=== PATIENT | male | born 1960 | race Caucasian/White ===

== ENCOUNTER → 2016-07-24 | Outpatient (CLI) | payer OTHER ==
[2016-07-24 12:58] LABS: Urine Bilirubin Negative (Negative); Urine Blood Negative /uL (Negative); Urine Color Yellow (Yellow); Urine Glucose Normal (Normal); Urine Ketone Negative (Negative); Urine Nitrite Negative (Negative); Urine Urobilinogen Normal (Negative); Urine pH 5.5 (5.0-8.0)
[2016-07-24 13:20] LABS: Basophils # (auto) 0 uL; Basophils % (auto) 0.3 % (0.0-2.0); DEFINITIVE VIEW TRANSMISSION; Eosinophils # (auto) 0.1 uL; Eosinophils % (auto) 0.8 % (0.0-7.0); Hemoglobin 18.1 g/dL (13.5-17.5); Lymphocytes # (auto) 2.1 uL; Lymphocytes % (auto) 23.2 % (10.0-50.0); Mean Corpuscular Hemoglobin 29.9 pg (28.0-32.0); Mean Corpuscular Hgb Conc. 31.8 g/dL (32.0-36.0); Mean Corpuscular Volume 93.9 fL (80.0-100.0); Mean Platelet Volume 9.8 fL (7.4-10.4); Monocytes # (auto) 0.5 uL; Monocytes % (auto) 5.4 % (0.0-12.0); Neutrophils # (auto) 6.4 uL; Neutrophils % (auto) 70.3 % (37.0-80.0); Platelet Count (auto) 255 10^3/uL (140-450); Red Cell Distribution Width 13.9 % (11.6-16.0); White Blood Cell 9.1 10^3/uL (4.4-10.8)
[2016-07-24 14:00] LABS: Hematocrit 56.9 % (41.0-53.0)
[2016-07-24 14:15] LABS: Potassium 4.4 mmol/L (3.5-5.1)
[2016-07-24 14:45] LABS: BUN/Creatinine Ratio 16.4; Calcium 9.7 mg/dL (8.5-10.1)
[2016-07-24 14:48] LABS: Bilirubin, Total 0.5 mg/dL (0.2-1.0); Total Protein 7.6 g/dL (6.4-8.2)
[2016-07-24 17:00] LABS: Bilirubin, Direct 0.1 mg/dL (0-0.2)
== END | disposition home or self-care (01) ==
LOC: LAB 08:30
PROVIDERS: ATTEND Internal Medicine Cardiovascular Disease
DX: I10 Essential (primary) hypertension (principal); E78.00 Pure hypercholesterolemia, unspecified; K74.1 Hepatic sclerosis; R97.20 Elevated prostate specific antigen [PSA]; R53.81 Other malaise; E03.9 Hypothyroidism, unspecified; D64.9 Anemia, unspecified; E55.9 Vitamin D deficiency, unspecified; N39.0 Urinary tract infection, site not specified; E11.9 Type 2 diabetes mellitus without complications
CPT/HCPCS: 36415; 80048; 80061; 80076; 81003; 82306; 83036; 84153; 84403; 84443; 85025

== ENCOUNTER → 2016-10-17 | Outpatient (CLI) | payer OTHER ==
[2016-10-17 12:36] LABS: Basophils # (auto) 0 uL; Basophils % (auto) 0.5 % (0.0-2.0); Eosinophils # (auto) 0.1 uL; Eosinophils % (auto) 1.2 % (0.0-7.0); Hematocrit 51.8 % (41.0-53.0); Hemoglobin 17.5 g/dL (13.5-17.5); Lymphocytes # (auto) 1.7 uL; Lymphocytes % (auto) 18.5 % (10.0-50.0); Mean Corpuscular Hgb Conc. 33.7 g/dL (32.0-36.0); Mean Corpuscular Volume 91.9 fL (80.0-100.0); Mean Platelet Volume 9.4 fL (7.4-10.4); Monocytes # (auto) 0.4 uL; Monocytes % (auto) 4.9 % (0.0-12.0); Neutrophils # (auto) 6.9 uL; Neutrophils % (auto) 74.9 % (37.0-80.0); Platelet Count (auto) 287 10^3/uL (140-450); Red Cell Distribution Width 13.3 % (11.6-16.0); White Blood Cell 9.2 10^3/uL (4.4-10.8)
[2016-10-17 12:40] LABS: Urine Bilirubin Negative (Negative); Urine Blood Negative /uL (Negative); Urine Color Yellow (Yellow); Urine Glucose Normal (Normal); Urine Ketone Negative (Negative); Urine Nitrite Negative (Negative); Urine Urobilinogen Normal (Negative); Urine pH 6.5 (5.0-8.0)
[2016-10-17 13:32] LABS: Albumin 3.9 g/dL (3.4-5.0); BUN/Creatinine Ratio 16.5; Bilirubin, Total 0.5 mg/dL (0.2-1.0); Calcium 9.4 mg/dL (8.5-10.1); Potassium 4.1 mmol/L (3.5-5.1); Total Protein 7.5 g/dL (6.4-8.2)
== END | disposition home or self-care (01) ==
LOC: LAB 08:26
PROVIDERS: ATTEND Internal Medicine Cardiovascular Disease
DX: I10 Essential (primary) hypertension (principal); E78.00 Pure hypercholesterolemia, unspecified; E11.9 Type 2 diabetes mellitus without complications; E03.9 Hypothyroidism, unspecified; D64.9 Anemia, unspecified; E55.9 Vitamin D deficiency, unspecified; N39.0 Urinary tract infection, site not specified
CPT/HCPCS: 36415; 80053; 80061; 81003; 82306; 83036; 84443; 85025

== ENCOUNTER → 2017-05-12 | Outpatient (CLI) | payer OTHER | END | disposition home or self-care (01) | LOC: Rad HDHVI 11:21 | PROVIDERS: ATTEND Internal Medicine Cardiovascular Disease | DX: J40 Bronchitis, not specified as acute or chronic (principal) | CPT/HCPCS: 71020 ==

== ENCOUNTER → 2018-01-16 | Outpatient (CLI) | payer OTHER | END | disposition home or self-care (01) | LOC: Rad HDHVI 11:58 | PROVIDERS: ATTEND Internal Medicine | DX: J98.11 Atelectasis (principal); I10 Essential (primary) hypertension; E11.9 Type 2 diabetes mellitus without complications; E03.9 Hypothyroidism, unspecified; E78.00 Pure hypercholesterolemia, unspecified | CPT/HCPCS: 71046 ==

== ENCOUNTER → 2018-09-04 | Outpatient (CLI) | payer OTHER ==
[2018-09-04 11:56] LABS: Eosinophils # (auto) 0.1 uL; Lymphocytes # (auto) 2.1 uL; Lymphocytes % (auto) 21.7 % (10.0-50.0); Monocytes # (auto) 0.6 uL; Monocytes % (auto) 5.6 % (0.0-12.0); White Blood Cell 9.9 10^3/uL (4.4-10.8)
[2018-09-04 12:02] LABS: Basophils # (auto) 0.1 uL; Basophils % (auto) 0.7 % (0.0-2.0); Eosinophils % (auto) 0.9 % (0.0-7.0); Hematocrit 54.1 % (41.0-53.0); Hemoglobin 18.4 g/dL (13.5-17.5); Mean Corpuscular Hemoglobin 30.8 pg (28.0-32.0); Mean Corpuscular Hgb Conc. 34.1 g/dL (32.0-36.0); Mean Corpuscular Volume 90.5 fL (80.0-100.0); Neutrophils % (auto) 71.1 % (37.0-80.0); Nucleated Red Blood Cells % 0.2 %; Platelet Count (auto) 286 10^3/uL (140-450); Red Blood Cells 5.98 10^6/uL (4.5-5.90)
== END | disposition home or self-care (01) ==
LOC: LAB 09:49
PROVIDERS: ATTEND Internal Medicine Cardiovascular Disease
DX: E29.1 Testicular hypofunction (principal); D64.9 Anemia, unspecified
CPT/HCPCS: 36415; 84403; 85025

== ENCOUNTER → 2018-10-02 | Outpatient (CLI) | payer OTHER ==
[2018-10-02 11:59] LABS: Basophils # (auto) 0 uL; Basophils % (auto) 0.6 % (0.0-2.0); Eosinophils # (auto) 0.1 uL; Eosinophils % (auto) 0.8 % (0.0-7.0); Hematocrit 52.4 % (41.0-53.0); Hemoglobin 17.6 g/dL (13.5-17.5); Lymphocytes # (auto) 1.7 uL; Lymphocytes % (auto) 24.3 % (10.0-50.0); Mean Corpuscular Hemoglobin 30.7 pg (28.0-32.0); Mean Corpuscular Hgb Conc. 33.6 g/dL (32.0-36.0); Mean Corpuscular Volume 91.5 fL (80.0-100.0); Monocytes # (auto) 0.7 uL; Monocytes % (auto) 10.4 % (0.0-12.0); Neutrophils # (auto) 4.5 uL; Neutrophils % (auto) 63.9 % (37.0-80.0); Nucleated Red Blood Cells % 0.3 %; Platelet Count (auto) 228 10^3/uL (140-450); Red Blood Cells 5.72 10^6/uL (4.5-5.90); Red Cell Distribution Width 14.7 % (11.8-14.3)
== END | disposition home or self-care (01) ==
LOC: LAB 10:07
PROVIDERS: ATTEND Internal Medicine Cardiovascular Disease
DX: E29.1 Testicular hypofunction (principal); D64.9 Anemia, unspecified
CPT/HCPCS: 36415; 84403; 85025

== ENCOUNTER → 2019-12-06 | Outpatient (CLI) | payer OTHER ==
[2019-12-06 12:16] LABS: Basophils # (auto) 0.1 10 ^3/uL (0-0.2); Basophils % (auto) 0.6 % (0.0-2.0); Eosinophils # (auto) 0.1 10 ^3/uL (0-0.8); Eosinophils % (auto) 1.1 % (0.0-7.0); Lymphocytes # (auto) 1.9 10 ^3/uL (0.4-5.4); Red Blood Cells 5.78 10^6/uL (4.5-5.90)
[2019-12-06 12:19] LABS: Hematocrit 54.4 % (41.0-53.0); Hemoglobin 18.8 g/dL (13.5-17.5); Lymphocytes % (auto) 20.5 % (10.0-50.0); Mean Corpuscular Hemoglobin 32.6 pg (28.0-32.0); Mean Corpuscular Hgb Conc. 34.6 g/dL (32.0-36.0); Mean Corpuscular Volume 94.1 fL (80.0-100.0); Monocytes # (auto) 0.6 10 ^3/uL (0-1.3); Monocytes % (auto) 6.6 % (0.0-12.0); Neutrophils # (auto) 6.7 10 ^3/uL (1.6-8.6); Neutrophils % (auto) 71.2 % (37.0-80.0); Platelet Count (auto) 276 10^3/uL (140-450); Red Cell Distribution Width 13.1 % (11.8-14.3); White Blood Cell 9.4 10^3/uL (4.4-10.8)
[2019-12-06 12:20] LABS: Urine Blood Negative /uL (Negative); Urine Specific Gravity 1.028 (1.001-1.035)
[2019-12-06 12:39] LABS: Free T4 (Free Thyroxine) 0.91 ng/dL (0.89-1.76); Potassium 4.3 mmol/L (3.5-5.1); Prostate Specific Antigen 1.38 ng/mL (0.0-4.0)
[2019-12-06 13:02] LABS: Albumin 3.9 g/dL (3.4-5.0); BUN/Creatinine Ratio 12.3; Bilirubin, Total 0.4 mg/dL (0.2-1.0); Calcium 9.4 mg/dL (8.5-10.1); Total Protein 7.8 g/dL (6.4-8.2)
== END | disposition home or self-care (01) ==
LOC: LAB 09:28
PROVIDERS: ATTEND Internal Medicine
DX: Z00.00 Encounter for general adult medical examination without abnormal findings (principal); C61 Malignant neoplasm of prostate; E03.9 Hypothyroidism, unspecified; K90.9 Intestinal malabsorption, unspecified; E29.1 Testicular hypofunction; N39.0 Urinary tract infection, site not specified; D51.9 Vitamin B12 deficiency anemia, unspecified; Z79.899 Other long term (current) drug therapy
CPT/HCPCS: 36415; 80053; 80061; 81003; 82306; 82607; 83036; 84153; 84403; 84439; 84443; 85025

== ENCOUNTER → 2020-12-06 | Outpatient (CLI) | payer BC, OTHER ==
[2020-12-06 11:37] LABS: Basophils # (auto) 0.1 10 ^3/uL (0-0.2); Basophils % (auto) 0.8 % (0.0-2.0); Eosinophils # (auto) 0.1 10 ^3/uL (0-0.8); Eosinophils % (auto) 1.2 % (0.0-7.0); Hematocrit 49.7 % (41.0-53.0); Hemoglobin 17.4 g/dL (13.5-17.5); Lymphocytes # (auto) 2.2 10 ^3/uL (0.4-5.4); Mean Corpuscular Hemoglobin 32.8 pg (28.0-32.0); Mean Corpuscular Volume 93.7 fL (80.0-100.0); Monocytes # (auto) 0.6 10 ^3/uL (0-1.3); Monocytes % (auto) 5.1 % (0.0-12.0); Neutrophils % (auto) 72.9 % (37.0-80.0); Nucleated Red Blood Cells % 0.2 %; Platelet Count (auto) 283 10^3/uL (140-450); Red Blood Cells 5.31 10^6/uL (4.5-5.90); Red Cell Distribution Width 13.4 % (11.8-14.3)
[2020-12-06 11:41] LABS: Urine Blood Negative /uL (Negative); Urine Specific Gravity 1.018 (1.001-1.035)
[2020-12-06 11:50] LABS: Albumin 3.9 g/dL (3.4-5.0); Calcium 9.6 mg/dL (8.5-10.1); Potassium 4.8 mmol/L (3.5-5.1)
[2020-12-06 11:57] LABS: BUN/Creatinine Ratio 12.8; Bilirubin, Total 0.6 mg/dL (0.2-1.0); Total Protein 7.7 g/dL (6.4-8.2)
[2020-12-06 12:01] LABS: Free T4 (Free Thyroxine) 0.89 ng/dL (0.89-1.76); Prostate Specific Antigen 1.29 ng/mL (0.0-4.0)
== END | disposition home or self-care (01) ==
LOC: LAB 09:05
PROVIDERS: ATTEND Internal Medicine
DX: C61 Malignant neoplasm of prostate (principal); D51.3 Other dietary vitamin B12 deficiency anemia; I10 Essential (primary) hypertension; E11.9 Type 2 diabetes mellitus without complications; E55.9 Vitamin D deficiency, unspecified; D64.9 Anemia, unspecified; R00.2 Palpitations; R53.1 Weakness; R30.0 Dysuria
CPT/HCPCS: 36415; 80053; 80061; 81003; 82306; 82607; 83036; 84153; 84403; 84439; 84443; 85025

== ENCOUNTER 2020-12-17 07:51 | Emergency (ER) | payer BC ==
[~2020-12-17] VITALS: Ht 182.9 cm; Wt 116.1 kg
[2020-12-17 08:16] LABS: Urine WBC None Seen /hpf (0 - 3)
[2020-12-17 08:26] LABS: Urine Bacteria NONE SEEN /hpf (None Seen); Urine Blood Negative /uL (Negative); Urine Specific Gravity 1.013 (1.001-1.035)
[2020-12-17 09:15] LABS: Chloride 105 mmol/L (98-107); Potassium 4.1 mmol/L (3.5-5.1); Sodium 136 mmol/L (136-145)
[2020-12-17 09:17] LABS: Albumin 3.8 g/dL (3.4-5.0); Anion Gap 5 (5-15); BUN/Creatinine Ratio 14.2; Basophils # (auto) 0 10 ^3/uL (0-0.2); Basophils % (auto) 0.4 % (0.0-2.0); Blood Urea Nitrogen 17 mg/dL (7-18); Calcium 9.1 mg/dL (8.5-10.1); Carbon Dioxide 26 mmol/L (21-32); Eosinophils # (auto) 0.1 10 ^3/uL (0-0.8); Eosinophils % (auto) 1.6 % (0.0-7.0); GFR African American 79 mL/min; GFR Non-African American 66 mL/min; Glucose 146 mg/dL (74-106); Hematocrit 48.1 % (41.0-53.0); Lymphocytes % (auto) 21.1 % (10.0-50.0); Mean Corpuscular Hemoglobin 32.8 pg (28.0-32.0); Mean Corpuscular Hgb Conc. 35.3 g/dL (32.0-36.0); Mean Corpuscular Volume 92.8 fL (80.0-100.0); Monocytes # (auto) 0.5 10 ^3/uL (0-1.3); Monocytes % (auto) 5.8 % (0.0-12.0); Neutrophils # (auto) 6.7 10 ^3/uL (1.6-8.6); Neutrophils % (auto) 71.1 % (37.0-80.0); Nucleated Red Blood Cells % 0.1 %; Platelet Count (auto) 287 10^3/uL (140-450); Red Blood Cells 5.18 10^6/uL (4.5-5.90); Red Cell Distribution Width 13.4 % (11.8-14.3); White Blood Cell 9.4 10^3/uL (4.4-10.8)
[2020-12-17 09:31] LABS: Alanine Aminotransferase 35 U/L (16-61); Alkaline Phosphatase 74 U/L (45-117); Aspartate Aminotransferase 18 U/L (15-37); Bilirubin, Total 0.3 mg/dL (0.2-1.0); Total Protein 7.6 g/dL (6.4-8.2)
[2020-12-17] MEDS ORDERED: MECLIZINE HCL 25 MG TAB ONE (10:38)
[2020-12-17 10:45] VITALS: BP 123/78
[2020-12-17] MEDS ORDERED: MECLIZINE HCL 25 MG TAB PO ONE (10:45)
== END 2020-12-17 11:21 | disposition home or self-care (01) ==
LOC: ER 07:51
DX: R07.89 Other chest pain (principal); R42 Dizziness and giddiness; I10 Essential (primary) hypertension; Z88.0 Allergy status to penicillin; Z90.49 Acquired absence of other specified parts of digestive tract
CPT/HCPCS: 36415; 70450; 71045; 80053; 81001; 84484; 85025; 85049; 93005; 99285; J8597

== ENCOUNTER → 2023-04-16 | Outpatient (CLI) | payer BC | END | disposition home or self-care (01) | LOC: Rad HDHVI 08:00 | PROVIDERS: ATTEND Internal Medicine Cardiovascular Disease | DX: I10 Essential (primary) hypertension (principal); E78.5 Hyperlipidemia, unspecified | CPT/HCPCS: 93306 ==

== ENCOUNTER → 2023-04-23 | Outpatient (CLI) | payer BC | END | disposition home or self-care (01) | LOC: Rad HDHVI 15:31 | PROVIDERS: ATTEND Internal Medicine Cardiovascular Disease | DX: I10 Essential (primary) hypertension (principal) | CPT/HCPCS: 93880 ==

== ENCOUNTER → 2023-04-30 | Outpatient (CLI) | payer BC ==
[~2023-04-30] VITALS: Ht 182.9 cm; Wt 120.7 kg
== END | disposition home or self-care (01) ==
LOC: Rad HDHVI 08:27
PROVIDERS: ATTEND Internal Medicine Cardiovascular Disease
DX: I10 Essential (primary) hypertension (principal); R42 Dizziness and giddiness; E78.5 Hyperlipidemia, unspecified; F41.9 Anxiety disorder, unspecified; Z79.899 Other long term (current) drug therapy; Z82.49 Family history of ischemic heart disease and other diseases of the circulatory system
CPT/HCPCS: 78452; 93017; 96374; A9500

== ENCOUNTER → 2024-01-02 | Outpatient (CLI) | payer BC ==
[~2024-01-02] MED LIST: ENOXAPARIN SOD 30 MG/0.3 ML SYRINGE IV ONE; IOHEXOL 350 MG/ML 100ML IJ ONE
[2024-01-02 13:38] VITALS: BP 148/76; PULSE 60; RESP 20; O2SAT 97
[2024-01-02] MEDS: ENOXAPARIN SOD 30 MG/0.3 ML SYRINGE ONE (13:56)
[2024-01-02 13:59] VITALS: BP 144/79; PULSE 67; RESP 20; O2SAT 97
== END | disposition home or self-care (01) ==
LOC: Rad HDHVI 13:29
PROVIDERS: ATTEND Internal Medicine Cardiovascular Disease
DX: Z09 Encounter for follow-up examination after completed treatment for conditions other than malignant neoplasm (principal); Z79.899 Other long term (current) drug therapy; Z79.01 Long term (current) use of anticoagulants; I26.99 Other pulmonary embolism without acute cor pulmonale; Z90.49 Acquired absence of other specified parts of digestive tract
CPT/HCPCS: 71275; 96374; G0463; J1650; Q9967

== ENCOUNTER → 2024-01-05 | Outpatient (CLI) | payer BC | END | disposition home or self-care (01) | LOC: Rad HDHVI 12:33 | PROVIDERS: ATTEND Internal Medicine Cardiovascular Disease | DX: I82.431 Acute embolism and thrombosis of right popliteal vein (principal); R22.41 Localized swelling, mass and lump, right lower limb | CPT/HCPCS: 93970 ==

== ENCOUNTER 2024-01-12 16:46 | Emergency (ER) | payer BC ==
[~2024-01-12] VITALS: Ht 177.8 cm; Wt 116.4 kg
[2024-01-12 16:59] VITALS: BP 134/86; PULSE 96; RESP 20; O2SAT 94
[2024-01-12 18:56] LABS: Basophils # (auto) 0.1 10 ^3/uL (0-0.2); Basophils % (auto) 1.2 % (0.0-2.0); Lymphocytes # (auto) 2.2 10 ^3/uL (0.4-5.4); Monocytes # (auto) 0.8 10 ^3/uL (0-1.3); Neutrophils # (auto) 7.9 10 ^3/uL (1.6-8.6); Neutrophils % (auto) 70.6 % (37.0-80.0); Red Cell Distribution Width 12.9 % (11.8-14.3); White Blood Cell 11.2 10^3/uL (4.4-10.8)
[2024-01-12 18:58] LABS: Eosinophils # (auto) 0.2 10 ^3/uL (0-0.8); Eosinophils % (auto) 1.5 % (0.0-7.0); Hematocrit 40.4 % (41.0-53.0); Lymphocytes % (auto) 19.4 % (10.0-50.0); Mean Corpuscular Hemoglobin 30.9 pg (28.0-32.0); Mean Corpuscular Hgb Conc. 34.7 g/dL (32.0-36.0); Monocytes % (auto) 7.3 % (0.0-12.0); Red Blood Cells 4.54 10^6/uL (4.5-5.90)
[2024-01-12 19:14] LABS: INR 1.13 (0.9-1.15); Partial Thromboplastin Time 28.1 SEC (24.5-34.5); Prothrombin Time 11.9 sec (9.3-11.8)
[2024-01-12 19:18] LABS: Alanine Aminotransferase 19 U/L (7-40); Albumin 4.5 g/dL (3.2-4.8); Alkaline Phosphatase 59 U/L (46-116); Anion Gap 9 (5-15); Aspartate Aminotransferase 14 U/L (13-40); BUN/Creatinine Ratio 10.1 (10.0-20.0); Blood Urea Nitrogen 15 mg/dL (9-23); Calcium 10.1 mg/dL (8.7-10.4); Carbon Dioxide 22 mmol/L (20-30); Chloride 105 mmol/L (98-107); Glucose 181 mg/dL (74-106); Potassium 3.7 mmol/L (3.5-5.1); Sodium 136 mmol/L (136-145)
[2024-01-12 19:19] LABS: Bilirubin, Total 0.2 mg/dL (0.2-1.0); Total Protein 7.4 g/dL (5.7-8.2)
== END 2024-01-12 22:51 | disposition home or self-care (01) ==
LOC: ER 16:46
DX: I82.401 Acute embolism and thrombosis of unspecified deep veins of right lower extremity (principal); I27.82 Chronic pulmonary embolism; E78.5 Hyperlipidemia, unspecified; I10 Essential (primary) hypertension; Z88.0 Allergy status to penicillin; Z88.1 Allergy status to other antibiotic agents; Z88.8 Allergy status to other drugs, medicaments and biological substances; Z90.49 Acquired absence of other specified parts of digestive tract; Z98.890 Other specified postprocedural states
CPT/HCPCS: 36415; 80053; 83880; 84484; 85025; 85610; 85730; 93970

== ENCOUNTER → 2024-01-21 | Outpatient (CLI) | payer BC | END | disposition home or self-care (01) | LOC: Rad HDHVI 15:51 | PROVIDERS: ATTEND Internal Medicine Cardiovascular Disease | DX: I10 Essential (primary) hypertension (principal); E78.5 Hyperlipidemia, unspecified | CPT/HCPCS: 93306 ==

== ENCOUNTER → 2024-04-30 | Outpatient (CLI) | payer BC ==
[~2024-04-30] MED LIST changes: -ENOXAPARIN SOD 30 MG/0.3 ML SYRINGE IV ONE
[2024-04-30 09:48] VITALS: BP 116/77; PULSE 71; RESP 16; O2SAT 97
[2024-04-30 10:04] VITALS: BP 145/75; PULSE 76; RESP 18; O2SAT 97
--- NOTE | 2024-04-30 12:13 | DVH ---
CTA Chest with intravenous contrast INDICATION: R/O PE COMPARISON: CT CT ANGIO CHEST CONTRAST on DOS: 01/02/24 TECHNIQUE: Multidetector spiral CTA of the chest was performed of the chest with intravenous contrast . PULMONARY ANGIOGRAPHY PROTOCOL was utilized using a bolus-tracking technique centered on the main p ulmonary artery. Axial, coronal and sagittal multiplanar and MIP reformats were performed. Radiation dose : Chest: CTDI volume is 36 mGy. Dose-length product is 916.62 mGy*cm The dose indicators for CT are the volume computed Tomography (CT) dose Index (CTDIvol) and the dose Length product (DLP), and are measured in units of mGy and mGy-cm, respectively. These indicators are not patient dose, but values generated from the CT scanner acquisition factors. The report includes radiation exposure data for exposures received during this examination. Findings: Pulmonary artery: Limited by poor contrast opacification of the pulmonary arteries. No large central or large segmental pulmonary embolism. Lower neck: Normal thyroid. Lungs: No focal consolidation, pleural effusion or pneumothorax. Calcified granuloma or enhancing nod ule in the lingula measuring up to 7 mm. Atelectasis and scarring in the lung bases. Heart/Vascular Structures: Normal heart size. No pericardial effusion. Lymph Nodes: No adenopathy Pleura: No pleural effusion or significant pneumothorax. Musculoskeletal: No acute osseous abnormality. Soft tissues: Normal. Upper abdomen: Limited portions of the upper abdomen are unremarkable. IMPRESSION: 1. Limited by poor contrast opacification of the pulmonary arteries. Previously seen bilateral pulmo nary emboli appear to have resolved. Small residual subsegmental pulmonary emboli are not entirely e xcluded. Consider follow-up. 2. Stable lingular nodule which could be a granuloma or enhancing lesion. This could be further evalu ated with noncontrast chest CT. HS:Y
== END | disposition home or self-care (01) ==
LOC: Rad HDHVI 09:36
PROVIDERS: ATTEND Internal Medicine Cardiovascular Disease
DX: I26.93 Single subsegmental thrombotic pulmonary embolism without acute cor pulmonale (principal); J98.11 Atelectasis; J98.4 Other disorders of lung
CPT/HCPCS: 71275; G0463; Q9967

== ENCOUNTER → 2024-05-03 | Outpatient (CLI) | payer BC | END | disposition home or self-care (01) | LOC: Rad HDHVI 08:58 | PROVIDERS: ATTEND Internal Medicine Cardiovascular Disease | DX: I82.401 Acute embolism and thrombosis of unspecified deep veins of right lower extremity (principal) | CPT/HCPCS: 93970 ==

== ENCOUNTER 2024-09-28 17:29 | Inpatient (IN) | payer BC ==
[~2024-09-28] VITALS: Ht 182.9 cm; Wt 112.0 kg
--- NOTE | 2024-09-28 18:19 | ED.PDOC ---
GI ASSESSMENT HPI Comments 63-year-old male who comes in with chief complaint of vomiting and abdominal pain. The patient states that the symptoms started last night. The patient has been vomiting all night and that has subsided. The patient was slept and then at approximately 5:00 p.m. today the patient was started with significant right lower quadrant pain. The patient states that the pain is a 10/10 and nonradiating. There has been no chills. The patient was also having some diaphoresis as well as some shortness a breath. Chief Complaint: Abdominal Pain Time Seen by MD: 17:53 Primary Care Provider: ANSLEY Reviewed Notes: Nurses Notes, Aviation Technical Systems Specialist Notes, Medications, Allergies (Allergies listed above) Allergies: Coded Allergies: Ampicillin (Verified Allergy, Unknown, 04/30/23) Cephalexin (Verified Allergy, Unknown, 04/30/23) Erythromycin (Verified Allergy, Unknown, 04/30/23) Penicillins (Verified Allergy, Unknown, 12/17/20) Information Source: Patient, Spouse Mode of Arrival: Ambulatory Timing: Hours Duration: Since onset Prehospital treatment: None Quality: Aching, Sharp Vomitus: Bilious Stool: Normal Severity: Moderate Recent: None Recent Hx of: None Pain Location: RLQ Modifying Factors: Nothing Associated sign and symptoms: Nausea, Vomiting, Abdominal Pain Past Medical History PAST MEDICAL HISTORY: High Lipids, HTN, PE Past Medical History (Other): Previous DVT Surgical History: Cholecystectomy Family History Family History: Reviewed,noncontributory to illness Social History Smoker: Non-Smoker Alcohol: Occasionally Drugs: Denies Drug Use Lives In: Home Constitutional: reports: diaphoresis; denies: chills, fatigue, fever, malaise, sweats, weakness, others EENTM: denies: blurred vision, double vision, ear bleeding, ear discharge, ear drainage, ear pain, ear ringing, eye pain, eye redness, hearing loss, mouth pain, mouth swelling, nasal discharge, nose bleeding, nose congestion, nose pain, photophobia, tearing, throat pain, throat swelling, voice changes, others Respiratory: reports: shortness of breath; denies: cough, hemoptysis, orthopnea, SOB at rest, SOB with excertion, stridor, wheezing, others Cardiovascular: denies: chest pain, dizzy spells, diaphoresis, Dyspnea on exertion, edema, irregular heart beat, left arm pain, lightheadedness, palpitations, PND, syncope, others Gastrointestinal: reports: abdominal pain, nausea, vomiting; denies: abdomen distended, blood streaked bowels, constipated, diarrhea, dysphagia, difficulty swallowing, hematemesis, melena, poor appetite, poor fluid intake, rectal bleeding, rectal pain, others Genitourinary: denies: burning, dysuria, flank pain, frequency, hematuria, incontinence, penile discharge, penile sore, pain, testicle pain, testicle swelling, urgency, others Neurological: denies: dizziness, fainting, headache, left sided numbness, left sided weakness, numbness, paresthesia, pre-existing deficit, right sided numbn ess, right sided weakness, seizure, speech problems, tingling, tremors, weakness, others Musculoskeletal: denies: back pain, gout, joint pain, joint swelling, muscle pain, muscle stiffness, neck pain, others Integumetry: denies: bruises, change in color, change in hair/nails, dryness, laceration, lesions, lumps, rash, wounds, others Allergic/Immunocompromised: denies: Difficulty Healing, Frequent Infections, Hives, Itching, others Hematologic/Lymphatic: denies: anemia, blood clots, easy bleeding, easy bruising, swollen glands, others Endocrine: denies: excessive hunger, excessive sweating, excessive thirst, excessive urination, flushing, intolerance to cold, intolerance to heat, unexplained weight gain, unexplained weight loss, others Psychiatric: denies: anxiety, bipolar disorder, depression, hopeless, panic disorder, schizophrenia, sleepless, suicidal, others Physical Exam General Appearance: Moderate Distress HEENT: Normal ENT Inspection, Pharynx Normal, TMs Normal Neck: Full Range of Motion, Non-Tender, Normal, Normal Inspection Respiratory: Chest Non-Tender, Lungs Clear, No Accessory Muscle Use, No Respiratory Distress, Normal Breath Sounds Cardiovascular: No Edema, No JVD, No Murmur, No Gallop, Normal Peripheral Pulses, Regular Rate/Rhythm Breast Exam: Deferred Gastrointestinal: No Organomegaly, No Pulsatile Mass, Normal Bowel Sounds, RLQ, Soft, Tenderness Genitalia: Deferred Pelvic: Deferred Rectal: Deferred Extremities: No calf tenderness, Normal capillary refill, Normal inspection, Normal range of motion, Non-tender, No pedal edema Musculoskeletal : Apperance: Normal Neurologic: Alert, reservations clerk II-XII nml as Tested, No Motor Deficits, Normal Affect, Normal Mood, No Sensory Deficits Cerebellar Function: Normal Reflexes: Normal Skin: Dry, Normal Color, Warm Lymphatic: No Adenopathy Was a procedure done? Was a procedure done?: No GI differential Dx Differential Diagnosis: Appendicitis, Bowel Obstruction, Gastritis/PUD, Gastroenteritis, Pancreatitis, Electrolyte Imbalance, Food Poisoning X-Ray, Labs, Meds, VS Vital Signs Date Time Temp Pulse Resp B/P (MAP) Pulse Ox O2 Delivery O2 Flow Rate FiO2 09/28/24 19:02 62 14 110/58 09/28/24 18:45 98.0 97 18 122/69 (86) 98 98.0 09/28/24 18:45 18 18 98 Room Air* 0 21 09/28/24 18:32 97 18 122/69 09/28/24 17:39 98.9 85 17 103/70 (81) 95 98.9 Lab Test 09/28/24 18:26 Range/Units White Blood Count 19.8 H 4.4-10.8 10^3/uL Red Blood Count 5.42 4.5-5.90 10^6/uL Hemoglobin 16.9 13.5-17.5 g/dL Hematocrit 50.1 41.0-53.0 % Mean Corpuscular Volume 92.4 80.0-100.0 fL Mean Corpuscular Hemoglobin 31.2 28.0-32.0 pg Mean Corpuscular Hemoglobin Concent 33.8 32.0-36.0 g/dL Red Cell Distribution Width 13.6 11.8-14.3 % Platelet Count 321 140-450 10^3/uL Mean Platelet Volume 8.1 6.9-10.8 fL Neutrophils (%) (Auto) 79.3 37.0-80.0 % Lymphocytes (%) (Auto) 14.4 10.0-50.0 % Monocytes (%) (Auto) 5.2 0.0-12.0 % Eosinophils (%) (Auto) 0.0 0.0-7.0 % Basophils (%) (Auto) 1.1 0.0-2.0 % Neutrophils # (Auto) 15.7 H 1.6-8.6 10 ^3/uL Lymphocytes # (Auto) 2.8 0.4-5.4 10 ^3/uL Monocytes # (Auto) 1.0 0-1.3 10 ^3/uL Eosinophils # (Auto) 0 0-0.8 10 ^3/uL Basophils # (Auto) 0.2 0-0.2 10 ^3/uL Nucleated Red Blood Cells 0.1 % Sodium Level 139 136-145 mmol/L Potassium Level 4.5 3.5-5.1 mmol/L Chloride Level 104 98-107 mmol/L Carbon Dioxide Level 22 20-31 mmol/L Anion Gap 13 5-15 Blood Urea Nitrogen 22 9-23 mg/dL Creatinine 1.64 H 0.700-1.30 mg/dL Glomerular Filtration Rate Calc 47 >90 mL/min BUN/Creatinine Ratio 13.4 10.0-20.0 Serum Glucose 171 H 74-106 mg/dL Calcium Level 11.1 H 8.7-10.4 mg/dL Total Bilirubin 0.8 0.2-1.0 mg/dL Aspartate Amino Transferase (AST) 14 13-40 U/L Alanine Aminotransferase (ALT) 21 7-40 U/L Alkaline Phosphatase 48 46-116 U/L Total Protein 7.6 5.7-8.2 g/dL Albumin 5.0 H 3.2-4.8 g/dL Lipase 39 12-53 U/L Current Medications Medications (Trade) Dose Ordered Sig/Mulu Route Start Time Stop Time Status Last Admin Ondansetron HCl (Zofran) 4 mg ONCE ONCE IV 09/28/24 18:15 09/28/24 18:16 DC 09/28/24 18:32 Sodium Chloride 1,000 ml @ 1,000 mls/hr Q1H ONCE IVB 09/28/24 18:15 09/28/24 19:14 DC 09/28/24 18:32 Morphine Sulfate 4 mg ONCE ONCE IV 09/28/24 18:15 09/28/24 18:16 DC 09/28/24 18:32 Pantoprazole Sodium (Protonix) 40 mg ONCE ONCE IV 09/28/24 18:15 09/28/24 18:16 DC 09/28/24 18:32 Vancomycin HCl 250 ml @ 250 mls/hr ONCE ONCE IV 09/28/24 20:00 09/28/24 20:59 09/28/24 20:19 IV Hep-Lock was established The patient was given a 1 L bolus of normal saline The patient was given morphine 4 mg IV push for the pain The patient was given Zofran 4 mg IV push for the nausea The patient was given Protonix 40 mg IV push A CAT scan of the abdomen and pelvis shows a non uncomplicated appendicitis with no sign of rupture. There are extensive inflammatory changes around the appendiceal area We did speak with Dr. Lynne and he stated that the patient should be NPO and he will be consulting on this patient is for possible surgery At this time, the patient is being admitted We have discussed the findings with the patient's family. The patient was have they typed and screened done Images Reviewed?: Images reviewed and evaluated by me Time of 1ST Reevaluation: 20:25 Reevaluation 1ST: Unchanged Patient Education/Counseling: Diagnosis, Treatment, Prognosis Family Education/Counseling: No Family Present Departure 1 Departure Time of Disposition: 20:24 Impression: Primary Impression: Intractable abdominal pain Additional Impression: Acute appendicitis Qualified Codes: K35.30 - Acute appendicitis with localized peritonitis, without perforation or gangrene Disposition: ADMITTED INPATIENT Admit to: Tele Condition: Fair Critical Care Note Critical Care Time?: No Stability Stability form required: Yes Unstable for transfer: ED Physician Assesment (Clinical assesment) Heart Score Heart Score: Heart Score Response (Comments) Value History N/A 0 EKG N/A 0 Age N/A 0 Risk Factors N/A 0 Troponin N/A 0 Total 0 SON MANCIA MD Sep 28, 2024 18:19
[2024-09-28] MEDS: PANTOPRAZOLE 40 MG/10 ML VIAL INJ IV ONE (18:32)
[2024-09-28] MEDS: SODIUM CHLORIDE 0.9% 1,000 ML IVB ONE (18:32)
[2024-09-28] MEDS: MORPHINE SULFATE 4 MG/ML SYR/VIAL IV ONE (18:32)
[2024-09-28] MEDS: ONDANSETRON HCL 4 MG/2 ML VIAL IV ONE ×2 (18:32→23:15)
[2024-09-28 18:40] LABS: Basophils # (auto) 0.2 10 ^3/uL (0-0.2); Basophils % (auto) 1.1 % (0.0-2.0); Eosinophils # (auto) 0 10 ^3/uL (0-0.8); Hematocrit 50.1 % (41.0-53.0); Hemoglobin 16.9 g/dL (13.5-17.5); Lymphocytes # (auto) 2.8 10 ^3/uL (0.4-5.4); Lymphocytes % (auto) 14.4 % (10.0-50.0); Mean Corpuscular Hemoglobin 31.2 pg (28.0-32.0); Mean Corpuscular Hgb Conc. 33.8 g/dL (32.0-36.0); Mean Corpuscular Volume 92.4 fL (80.0-100.0); Monocytes % (auto) 5.2 % (0.0-12.0); Neutrophils # (auto) 15.7 10 ^3/uL (1.6-8.6); Neutrophils % (auto) 79.3 % (37.0-80.0); Nucleated Red Blood Cells % 0.1 %; Platelet Count (auto) 321 10^3/uL (140-450); Red Blood Cells 5.42 10^6/uL (4.5-5.90); Red Cell Distribution Width 13.6 % (11.8-14.3); White Blood Cell 19.8 10^3/uL (4.4-10.8)
[2024-09-28 18:45] VITALS: PULSE 18; RESP 18; O2SAT 98
[2024-09-28 18:56] LABS: Alanine Aminotransferase 21 U/L (7-40); Alkaline Phosphatase 48 U/L (46-116); Anion Gap 13 (5-15); Aspartate Aminotransferase 14 U/L (13-40); BUN/Creatinine Ratio 13.4 (10.0-20.0); Bilirubin, Total 0.8 mg/dL (0.2-1.0); Blood Urea Nitrogen 22 mg/dL (9-23); Carbon Dioxide 22 mmol/L (20-31); Chloride 104 mmol/L (98-107); Lipase 39 U/L (12-53); Potassium 4.5 mmol/L (3.5-5.1); Sodium 139 mmol/L (136-145); Total Protein 7.6 g/dL (5.7-8.2)
[2024-09-28 19:30] LABS: Calcium 11.1 mg/dL (8.7-10.4); Glucose 171 mg/dL (74-106)
--- NOTE | 2024-09-28 20:00 | DVH ---
Procedure: CT CT AB PEL WO CON-NO ORAL OR IV 09/28/2024 06:38 PM Indication: Right sided pain Comparison Study: None Technique: Axial images were obtained and reformatted in coronal and sagittal planes. All CT scans at this medical facility are performed using dose modulation techniques as appropriate to a performed e xam including the following: Automated exposure control was utilized; adjustment of the MA and/or KV according to patient size; and use of iterative reconstruction technique. CT Dose: CTDI volume is 23. 2 mGy. Dose-length product is 1346.82 mGy*cm FINDINGS: Lower Chest: Unremarkable. Hepatobiliary: Heterogeneous liver parenchyma. Gallbladder is surgically absent. No intrahepatic or extrahepatic ductal dilatation. Spleen: Unremarkable. Pancreas: Unremarkable. Adrenal Glands: Unremarkable. tract: The kidneys are normal in size bilaterally without hydronephrosis . A 3 mm nonobstructing stone seen in the lower pole of the left kidney. The urinary bladder is unremarkable. GI tract: The stomach is grossly normal in appearance. No evidence of small bowel obstruction. There is sigmoid diverticulosis without diverticulitis. Dilated appendix measuring 1.3 cm in caliber contai alessandro at least 4 subcentimeter appendicoliths mural thickening severe periappendiceal inflammation. Lymphatics: No mesenteric, retroperitoneal or periportal lymphadenopathy. Vasculature: The abdominal aorta is normal in caliber. Pelvic Organs: Unremarkable Bones/soft tissues: No acute abnormality. Other: None. IMPRESSION: 1. Acute non complicated appendicitis with extensive periappendiceal inflammation. No signs of perfo ration. Recommend surgical consultation. 2. Heterogeneous hypodense liver likely due to hepatic steatosis. Recommend correlation with liver f unction tests and further evaluation by liver ultrasound. 3. Subcentimeter nonobstructive left renal stone without hydronephrosis. Findings discussed with SON MANCIA at 09/28/2024 07:42 PM, and acknowledged receipt and understand ing of the findings. ..
[2024-09-28] MEDS: VANCOMYCIN 1GM/200ML PM 250 ML IV ONE (20:19)
[2024-09-28] MEDS: SUCCINYLCHOLINE CHLORIDE 20 MG/ML 10ML VIAL IV ONE (21:04)
[2024-09-28] MEDS ORDERED: PROPOFOL 10 MG/ML 20 ML IV ONE (21:06)
[2024-09-28] MEDS ORDERED: fentaNYL CITRATE 100 MCG/2 ML VL ONE ×3 (21:06→22:51)
[2024-09-28] MEDS ORDERED: ROCURONIUM 10MG/ML 10ML VIAL IV ONE (21:07)
[2024-09-28 21:11] LABS: INR 1.13 (0.9-1.15); Partial Thromboplastin Time 26.6 SEC (24.5-34.5); Prothrombin Time 11.8 sec (9.3-11.8)
[2024-09-28 21:33] LABS: Urine Bacteria FEW /hpf (None Seen); Urine Blood Negative /uL (Negative); Urine Clarity Clear (Clear); Urine Color Yellow (Yellow); Urine Mucus FEW (None Seen); Urine Protein, UAD 1+ (Negative); Urine Specific Gravity 1.025 (1.001-1.035); Urine Squamous Epithelial Cell None Seen /hpf (<5); Urine Urobilinogen Normal (Negative); Urine WBC 3 /HPF (0-3)
--- NOTE | 2024-09-28 21:33 | DVHINCON2 ---
Date of service: Sep 28, 2024 Allergies: Coded Allergies: Ampicillin (Verified Allergy, Unknown, 04/30/23) Cephalexin (Verified Allergy, Unknown, 04/30/23) Erythromycin (Verified Allergy, Unknown, 04/30/23) Penicillins (Verified Allergy, Unknown, 12/17/20) Vital Signs Vital Signs Date Time Temp Pulse Resp B/P (MAP) Pulse Ox O2 Delivery O2 Flow Rate FiO2 09/28/24 20:00 98.0 97 18 110/54 (72) 98 98.0 09/28/24 18:45 Room Air* 0 21 Labs/Diagnostic Data Labs Test 09/28/24 18:26 09/28/24 17:30 Range/Units White Blood Count 19.8 H 4.4-10.8 10^3/uL Red Blood Count 5.42 4.5-5.90 10^6/uL Hemoglobin 16.9 13.5-17.5 g/dL Hematocrit 50.1 41.0-53.0 % Mean Corpuscular Volume 92.4 80.0-100.0 fL Mean Corpuscular Hemoglobin 31.2 28.0-32.0 pg Mean Corpuscular Hemoglobin Concent 33.8 32.0-36.0 g/dL Red Cell Distribution Width 13.6 11.8-14.3 % Platelet Count 321 140-450 10^3/uL Mean Platelet Volume 8.1 6.9-10.8 fL Neutrophils (%) (Auto) 79.3 37.0-80.0 % Lymphocytes (%) (Auto) 14.4 10.0-50.0 % Monocytes (%) (Auto) 5.2 0.0-12.0 % Eosinophils (%) (Auto) 0.0 0.0-7.0 % Basophils (%) (Auto) 1.1 0.0-2.0 % Neutrophils # (Auto) 15.7 H 1.6-8.6 10 ^3/uL Lymphocytes # (Auto) 2.8 0.4-5.4 10 ^3/uL Monocytes # (Auto) 1.0 0-1.3 10 ^3/uL Eosinophils # (Auto) 0 0-0.8 10 ^3/uL Basophils # (Auto) 0.2 0-0.2 10 ^3/uL Nucleated Red Blood Cells 0.1 % Prothrombin Time 11.8 9.3-11.8 sec Prothrombin Time INR 1.13 0.9-1.15 Activated Partial Thromboplast Time 26.6 24.5-34.5 SEC Sodium Level 139 136-145 mmol/L Potassium Level 4.5 3.5-5.1 mmol/L Chloride Level 104 98-107 mmol/L Carbon Dioxide Level 22 20-31 mmol/L Anion Gap 13 5-15 Blood Urea Nitrogen 22 9-23 mg/dL Creatinine 1.64 H 0.700-1.30 mg/dL Glomerular Filtration Rate Calc 47 >90 mL/min BUN/Creatinine Ratio 13.4 10.0-20.0 Serum Glucose 171 H 74-106 mg/dL Calcium Level 11.1 H 8.7-10.4 mg/dL Total Bilirubin 0.8 0.2-1.0 mg/dL Aspartate Amino Transferase (AST) 14 13-40 U/L Alanine Aminotransferase (ALT) 21 7-40 U/L Alkaline Phosphatase 48 46-116 U/L Total Protein 7.6 5.7-8.2 g/dL Albumin 5.0 H 3.2-4.8 g/dL Lipase 39 12-53 U/L Assessment [id number] AC APPENDICITIS LAP/OPEN APPENDECTOMY BENEFITS RISKS DISCUSSED PT CONSENTS NURSE AND FAMILY AT BEDSIDE Plan discussed with: Patient REGI WHITAKER MD Sep 28, 2024 21:33
--- NOTE | 2024-09-28 21:38 | DVHINCON2 ---
DATE OF CONSULTATION: 09/28/2024 HISTORY OF PRESENT ILLNESS: The patient is 63 years old, coming in with right lower abdominal pain, started yesterday, got worse, came to the Emergency Room. I was asked to see him. Some nausea, no vomiting, no constipation, diarrhea. No hematemesis, melena. No bleeding per rectum. PAST MEDICAL HISTORY: Hypertension. No diabetes. PAST SURGICAL HISTORY: Gallbladder surgery, leg tendon surgery and nasal septum surgery. PHYSICAL EXAMINATION: VITAL SIGNS: Afebrile, stable signs. HEENT: With no evidence of pallor, cyanosis, or jaundice. NECK: Supple, nontender with no thyromegaly, lymphadenopathy. CHEST AND LUNGS: Clear. HEART: Within normal limits. ABDOMEN: Soft, tender in the right lower quadrant, evidence of rebound. EXTREMITIES: Unremarkable. NEUROLOGIC: Intact. CLINICAL IMPRESSION: Acute appendicitis. PLAN: Laparoscopic, possible open appendectomy. Benefits, risks discussed and a consent obtained. He does have a high risk for surgery because he is on Xarelto due to clots in his legs and he had his dose yesterday and he understands the risk of increased bleeding and is wanting to proceed with surgery. MD TIMOTEO Loera/JOLEEN TID: [id number] RECEIPT: [id number] cc: Rubin Anglin MD
[2024-09-28] MEDS ORDERED: ePHEDrine SULFATE 50 MG/ML AMP ONE (21:48)
[2024-09-28] MEDS ORDERED: PHENYLEPHRINE HCL 10 MG/ML VL ONE (21:50)
[2024-09-28] MEDS ORDERED: NITROGLYCERIN 0.4 MG SL TAB SL PRN (22:30)
[2024-09-28] MEDS ORDERED: MORPHINE SULFATE INJ 2 MG/ml SYRG IV PRN (22:30)
[2024-09-28] MEDS ORDERED: SUGAMMADEX 200mg/2ml Vial (100MG/ML) IV ONE (22:46)
[2024-09-28] MEDS: BUPIVACAINE 0.25% INJ 50ML VIAL ONE (22:50)
--- NOTE | 2024-09-28 22:57 | DVHOP2 ---
Operative Report [id number] AC RUPTURED APPENDICITIS INTRAABD ABSCESS. PELVIC ABSCESS, SUBDIAPHRAGMATIC ABSCESS LAP FABY DRAINAGE OF INTRAABD ABSCESS, PELVIC , SUBDIAPHRAGMATIC ABSCESS LAP APPENDECTOMY EBL 10 CC ONE DRAIN NO COMPLICATIONS DISCUSSED OP FINDINGS WITH FAMILY REGI WHITAKER MD Sep 28, 2024 22:57
[2024-09-28 23:00] VITALS: PULSE 109; RESP 11; O2SAT 95
[2024-09-28 23:15] VITALS: RESP 11
[2024-09-28] MEDS ORDERED: ACETAMINOPHEN IV 1000 MG/100ML (10MG/ML) IV PRN ×2 (23:15)
[2024-09-28] MEDS ORDERED: MEPERIDINE HCL (25 MG/ML) 1ML VIAL IV PRN (23:15)
[2024-09-28] MEDS ORDERED: HYDROmorphone HCL 2 MG/ML VL/or syr IV PRN (23:15)
[2024-09-28 23:30] VITALS: RESP 12
[2024-09-29] VITALS (10 sets, daily range): BP systolic 107–129; BP diastolic 41–74; PULSE 54–105; RESP 16–20; TEMP 97.9–99.3; O2SAT 90–98
--- NOTE | 2024-09-29 00:08 | DVHOP ---
DATE OF SURGERY: 09/28/2024 DATE OF OPERATION: 09/28/2024 PREOPERATIVE DIAGNOSES: Acute appendicitis, was found to have acute ruptured appendicitis with stool leaking with intra-abdominal abscess, pelvic abscess and right subdiaphragmatic abscess, dense adhesions. POSTOPERATIVE DIAGNOSES: Acute appendicitis, was found to have acute ruptured appendicitis with stool leaking with intra-abdominal abscess, pelvic abscess and right subdiaphragmatic abscess, dense adhesions. PROCEDURES: Laparoscopic lysis of dense adhesions with drainage of intra-abdominal abscess, pelvic abscess and right subdiaphragmatic abscess and laparoscopic appendectomy. SURGEON: Mehul Lynne MD ENVIRONMENTAL SCIENTIST: None. ANESTHESIA: General. ESTIMATED BLOOD LOSS: Close to 10 mL. DRAINS: One drain was used. COMPLICATIONS: No complication encountered. DESCRIPTION OF PROCEDURE: The patient was prepped and draped in the usual sterile fashion in the supine position and a supraumbilical incision was applied, was taken down to the fascia. A Veress needle was introduced and CO2 insufflation was started to a pressure of 15 mmHg. The needle was withdrawn, replaced by the 12 mm trocar and a telescope was introduced and the abdomen was found to be quite involved with the intra-abdominal abscess and its phlegmonous tissues, ruptured appendicitis was suspected and confirmed. There was a pelvic abscess noted and there was a subdiaphragmatic abscess noted. Two 5 mm ports were applied more inferiorly, one above the symphysis, the third midway between the upper two. The camera was moved to the lowermost 5 mm port. The upper 2 ports were used for surgery. The abscesses were drained out. The adhesions were taken down. The appendix was found to be acutely inflamed and ruptured close to the base. The base of the appendix was transected using the Endo-LETICIA stapling device and the mesoappendix was clipped at the base, divided distal to that using Harmonic device. The appendix released in this fashion was retrieved from the supraumbilical wound in the EndoCatch bag without any complication. Hemostasis was secured. Irrigation fluid was removed, both from the right lower quadrant, pelvis and the right subdiaphragmatic location and the patient was then placed back supine and the surgery was done in the head down and right upper lateral position. The EndoClose suture was used for the fascial closure of the supraumbilical wound after the size 19 Rashaun drainage tube was placed to drain the right lower quadrant, the pelvis, then brought out through the inferior 5 mm port. After that, one port had been withdrawn, securing the drain with a silk suture, the irrigation fluid was removed. The port sites were free from bleeding. The patient was placed back supine. As I mentioned, the EndoClose suture was used for the fascial closure of the supraumbilical wound. All the ports were withdrawn after all the CO2 had been let out and the wounds were brought together using 3-0 Monocryl suture in a subcuticular fashion. Surgical glue was applied. The patient tolerated the procedure well and was taken back to recovery room in stable condition. MD TIMOTEO Loera/OVIDIO/ABIMBOLA TID: [id number] RECEIPT: [id number] cc:
--- NOTE | 2024-09-29 00:37 | ECG ---
[facility] Test Date: 2024-09-28 Test Time: 20:48:41 Pat Name: LARRY CASTORENA Department: ED Room: 0208T A Gender: M Marketing Assistant Manager: ED : 1960 Requested By: SON MANCIA Order Number: [id number] Reading MD: Alen Aguilera Measurements Intervals Point Clear Rate: 99 P: 45 MO: 176 QRS: -14 QRSD: 101 T: 46 QT: 374 QTc: 480 Interpretive Statements Sinus rhythm Low voltage, precordial leads Borderline prolonged QT interval Electronically Signed On 09-30-2024 20:50:59 PDT by Alen Aguilera Please click the below link to view image of tracing.
[2024-09-29] MEDS ORDERED: ROSU20TA56 PO (03:12)
[2024-09-29] MEDS ORDERED: FENO145T27 PO (03:12)
[2024-09-29] MEDS ORDERED: SEMA4INJ SC (03:12)
[2024-09-29] MEDS ORDERED: RIVA20TA PO (03:12)
[2024-09-29] MEDS: metroNIDAZOLE 500MG/100ML 100 ML IV SCH (05:54)
[2024-09-29] MEDS ORDERED: VORT10TA PO (08:34)
[2024-09-29] MEDS ORDERED: OLME40TA9 PO (08:34)
[2024-09-29] MEDS: HYDROMORPHONE HCL 1 MG/ML INJ IV PRN (11:55)
--- NOTE | 2024-09-29 11:56 | DVHHP2 ---
History of Present Illness Reason for Visit: Severe right lower quadrant abdominal pain with intractable n/v History of Present Illness This is a 63 years old male with past medical history hypertension, hyperlipidemia, history pulmonary embolism came to emergency department because of intractable nausea, vomiting and severe abdominal pain. The patient stated that his pain is on the right lower quadrant. The pain radiated to the back. Pain about 8/10. The pain associated with nausea and vomiting. No fever or chill. The patient can not keep anything down. That is what he decided to come to hospital for further evaluation. In the ER the patient was found to have acute appendicitis. Surgeon was consulted and took the patient to the OR emergently for appendectomy. We are seeing the patient for medical management. The patient denied any headache, no blurred vision. No chest pain, no shortness a breath. No constipation or diarrhea. No melena or bright red blood per rectum. No nocturnal dyspnea or orthopnea. No polyuria, dysuria or hematuria. Cardiovascular: HTN, hyperipidemia Pulmonary: Pulmonary embolus Review of Systems Constitutional: Yes: Other (Severe abdominal pain) Eyes: No: Pain, Vision change, Conjunctivae inflammation, Eyelid inflammation, Other, Redness ENT: No: Ear pain, Ear discharge, Nose pain, Nose discharge, Nose congestion, Mouth pain, Mouth swelling, Throat pain, Throat swelling, Other Respiratory: No: Cough, Dry, Shortness of breath, SOB with excertion, Wheezing, Hemoptysis, Pleuritic Pain, Sputum, Wheezing, Other Cardiovascular: No: Chest Pain, Palpitations, Orthopnea, Paroxysmal Noc. Dyspnea, Edema, Lt Headedness, Other Gastrointestinal: Nausea, Vomiting, Abdominal Pain Genitourinary: No Dysuria, No Frequency, No Incontinence, No Hematuria, No Retention, No Other Musculoskeletal: No: other, neck pain, shoulder pain, arm pain, back pain, hand pain, leg pain, foot pain Skin: No: Rash, Lesions, Jaundice, Bruising, Other Neurological: No: Weakness, Numbness, Incoordination, Change in speech, Conf usion, Seizures, Other Allergies: Coded Allergies: Ampicillin (Verified Allergy, Unknown, 04/30/23) Cephalexin (Verified Allergy, Unknown, 04/30/23) Erythromycin (Verified Allergy, Unknown, 04/30/23) Penicillins (Verified Allergy, Unknown, 12/17/20) Medications Current Medications Medications Dose Ordered Sig/Mulu Route Start Time Stop Time Status Last Admin Dose Admin Morphine Sulfate 2 mg Q30M PRN IV 09/28/24 22:30 Nitroglycerin 0.4 mg Q5MINP PRN SL 09/28/24 22:30 Metronidazole 100 ml @ 100 mls/hr Q8HR IV 09/29/24 06:00 09/29/24 05:54 100 MLS/HR Hydromorphone HCl 0.5 mg Q4HPRN PRN IV 09/28/24 23:30 09/29/24 11:55 0.5 MG Exam Vital Signs Vital Signs Date Time Temp Pulse Resp B/P (MAP) Pulse Ox O2 Delivery O2 Flow Rate FiO2 09/29/24 11:55 54 20 117/57 09/29/24 08:01 98.7 93 98.7 09/29/24 07:50 Nasal Cannula* 2 28 Exam The patient lying on bed not in acute distress General Appearance: Alert, Oriented X3, Cooperative, No acute distress HEENT: Atraumatic, PERRLA, EOMI, Mucous membr. moist/pink Respiratory: Clear to auscultation, Normal air movement Cardiovascular: Regular rate, Normal S1, Normal S2, No murmurs, Gallops Abdominal: Normal bowel sounds, Other (Status post appendectomy , CRYSTAL intact) Extremities: No clubbing, No cyanosis, No edema Skin: No rashes, No breakdown Neuro: Cranial nerves 3-12 NL Psych/Mental Status: Mental status NL Labs/Xrays Labs Test 09/28/24 18:26 09/28/24 17:30 Range/Units White Blood Count 19.8 H 4.4-10.8 10^3/uL Red Blood Count 5.42 4.5-5.90 10^6/uL Hemoglobin 16.9 13.5-17.5 g/dL Hematocrit 50.1 41.0-53.0 % Mean Corpuscular Volume 92.4 80.0-100.0 fL Mean Corpuscular Hemoglobin 31.2 28.0-32.0 pg Mean Corpuscular Hemoglobin Concent 33.8 32.0-36.0 g/dL Red Cell Distribution Width 13.6 11.8-14.3 % Platelet Count 321 140-450 10^3/uL Mean Platelet Volume 8.1 6.9-10.8 fL Neutrophils (%) (Auto) 79.3 37.0-80.0 % Lymphocytes (%) (Auto) 14.4 10.0-50.0 % Monocytes (%) (Auto) 5.2 0.0-12.0 % Eosinophils (%) (Auto) 0.0 0.0-7.0 % Basophils (%) (Auto) 1.1 0.0-2.0 % Neutrophils # (Auto) 15.7 H 1.6-8.6 10 ^3/uL Lymphocytes # (Auto) 2.8 0.4-5.4 10 ^3/uL Monocytes # (Auto) 1.0 0-1.3 10 ^3/uL Eosinophils # (Auto) 0 0-0.8 10 ^3/uL Basophils # (Auto) 0.2 0-0.2 10 ^3/uL Nucleated Red Blood Cells 0.1 % Prothrombin Time 11.8 9.3-11.8 sec Prothrombin Time INR 1.13 0.9-1.15 Activated Partial Thromboplast Time 26.6 24.5-34.5 SEC Sodium Level 139 136-145 mmol/L Potassium Level 4.5 3.5-5.1 mmol/L Chloride Level 104 98-107 mmol/L Carbon Dioxide Level 22 20-31 mmol/L Anion Gap 13 5-15 Blood Urea Nitrogen 22 9-23 mg/dL Creatinine 1.64 H 0.700-1.30 mg/dL Glomerular Filtration Rate Calc 47 >90 mL/min BUN/Creatinine Ratio 13.4 10.0-20.0 Serum Glucose 171 H 74-106 mg/dL Calcium Level 11.1 H 8.7-10.4 mg/dL Total Bilirubin 0.8 0.2-1.0 mg/dL Aspartate Amino Transferase (AST) 14 13-40 U/L Alanine Aminotransferase (ALT) 21 7-40 U/L Alkaline Phosphatase 48 46-116 U/L Total Protein 7.6 5.7-8.2 g/dL Albumin 5.0 H 3.2-4.8 g/dL Lipase 39 12-53 U/L Urine Color Yellow Yellow Urine Clarity Clear Clear Urine pH 7.0 5.0-9.0 Urine Specific [place] 1.025 1.001-1.035 Urine Protein 1+ H Negative Urine Ketones Negative Negative Urine Blood Negative Negative /uL Urine Nitrite Negative Negative Urine Bilirubin Negative Negative Urine Urobilinogen Normal Negative mg/dL Urine Leukocyte Esterase Negative Negative /uL Urine RBC 2 0 - 3 /hpf Urine Microscopic WBC 3 0-3 /HPF Urine Squamous Epithelial Cells None seen <5 /hpf Urine Bacteria Few H None Seen /hpf Urine Mucus Few None Seen Urine Glucose Normal Normal mg/dL Assessment/Plan Assessment/Plan Acute appendicitis status post appendectomy Hypertension Hyperlipidemia History pulmonary embolism Continuing current management with IV antibiotic metronidazole. Zofran IV PRN for nausea and vomiting. Continuing IV fluid with D5 half-normal saline. Continuing IV pain medication Diet advanced per surgeon. Continuing NPO for now The patient is full code. Plan discussed with: Patient, Spouse Date of Service: Sep 29, 2024 Billing Provider: RONY WASSERMAN MD Common Visit Codes: [id number] INP/OBS CARE (HIGH) RONY WASSERMAN MD Sep 29, 2024 11:56
--- NOTE | 2024-09-29 12:24 | DVHPN2 ---
Progress Note - Dictate Date Seen: Sep 29, 2024 Medical Necessity Reason Pt with a Central, PICC or Fol: No Subjective PT WITH ABD PAIN ACUTE APPENDICITIS S/P APPENDECTOMY ECHO EF >55% vital signs Vital Sign Date Time Temp Pulse Resp B/P (MAP) Pulse Ox O2 Delivery O2 Flow Rate FiO2 09/29/24 11:55 54 20 117/57 09/29/24 08:01 98.7 93 98.7 09/29/24 07:50 Nasal Cannula* 2 28 Total Intake and Output 09/28/24 09/28/24 09/29/24 15:00 23:00 07:00 Intake Total 100 ml Output Total 300 ml Balance -200 ml medications Current Medications Medications Dose Ordered Sig/Mulu Route Start Time Stop Time Status Last Admin Dose Admin Morphine Sulfate 2 mg Q30M PRN IV 09/28/24 22:30 Nitroglycerin 0.4 mg Q5MINP PRN SL 09/28/24 22:30 Metronidazole 100 ml @ 100 mls/hr Q8HR IV 09/29/24 06:00 09/29/24 05:54 100 MLS/HR Hydromorphone HCl 0.5 mg Q4HPRN PRN IV 09/28/24 23:30 09/29/24 11:55 0.5 MG laboratory and microbiology Laboratory Tests 09/28/24 18:26 Test 09/28/24 18:26 Range/Units Serum Glucose 171 H 74-106 mg/dL Problem List ABD PAIN ACUTE APPENDICITIS S/P APPENDECTOMY ECHO EF >55% Assessment/Plan MONITOR LABS PT Plan discussed with: Patient Critical Care Time(min): 35 ANSLEY OKEEFE MD Sep 29, 2024 12:24
[2024-09-29] MEDS ORDERED: METR-344 PO (13:11)
[2024-09-29] MEDS ORDERED: HYDR-4902 PO (13:11)
--- NOTE | 2024-09-29 13:13 | DVHDS2 ---
Discharge Summary Date of Admission Sep 28, 2024 at 22:17 Labs/Diagnostic Data: Laboratory Results Test 09/28/24 18:26 09/28/24 17:30 White Blood Count 19.8 10^3/uL (4.4-10.8) Red Blood Count 5.42 10^6/uL (4.5-5.90) Hemoglobin 16.9 g/dL (13.5-17.5) Hematocrit 50.1 % (41.0-53.0) Mean Corpuscular Volume 92.4 fL (80.0-100.0) Mean Corpuscular Hemoglobin 31.2 pg (28.0-32.0) Mean Corpuscular Hemoglobin Concent 33.8 g/dL (32.0-36.0) Red Cell Distribution Width 13.6 % (11.8-14.3) Platelet Count 321 10^3/uL (140-450) Mean Platelet Volume 8.1 fL (6.9-10.8) Neutrophils (%) (Auto) 79.3 % (37.0-80.0) Lymphocytes (%) (Auto) 14.4 % (10.0-50.0) Monocytes (%) (Auto) 5.2 % (0.0-12.0) Eosinophils (%) (Auto) 0.0 % (0.0-7.0) Basophils (%) (Auto) 1.1 % (0.0-2.0) Neutrophils # (Auto) 15.7 10 ^3/uL (1.6-8.6) Lymphocytes # (Auto) 2.8 10 ^3/uL (0.4-5.4) Monocytes # (Auto) 1.0 10 ^3/uL (0-1.3) Eosinophils # (Auto) 0 10 ^3/uL (0-0.8) Basophils # (Auto) 0.2 10 ^3/uL (0-0.2) Nucleated Red Blood Cells 0.1 % Prothrombin Time 11.8 sec (9.3-11.8) Prothrombin Time INR 1.13 (0.9-1.15) Activated Partial Thromboplast Time 26.6 SEC (24.5-34.5) Sodium Level 139 mmol/L (136-145) Potassium Level 4.5 mmol/L (3.5-5.1) Chloride Level 104 mmol/L (98-107) Carbon Dioxide Level 22 mmol/L (20-31) Anion Gap 13 (5-15) Blood Urea Nitrogen 22 mg/dL (9-23) Creatinine 1.64 mg/dL (0.700-1.30) Glomerular Filtration Rate Calc 47 mL/min (>90) BUN/Creatinine Ratio 13.4 (10.0-20.0) Serum Glucose 171 mg/dL (74-106) Calcium Level 11.1 mg/dL (8.7-10.4) Total Bilirubin 0.8 mg/dL (0.2-1.0) Aspartate Amino Transferase (AST) 14 U/L (13-40) Alanine Aminotransferase (ALT) 21 U/L (7-40) Alkaline Phosphatase 48 U/L (46-116) Total Protein 7.6 g/dL (5.7-8.2) Albumin 5.0 g/dL (3.2-4.8) Lipase 39 U/L (12-53) Urine Color Yellow (Yellow) Urine Clarity Clear (Clear) Urine pH 7.0 (5.0-9.0) Urine Specific [place] 1.025 (1.001-1.035) Urine Protein 1+ (Negative) Urine Ketones Negative (Negative) Urine Blood Negative /uL (Negative) Urine Nitrite Negative (Negative) Urine Bilirubin Negative (Negative) Urine Urobilinogen Normal mg/dL (Negative) Urine Leukocyte Esterase Negative /uL (Negative) Urine RBC 2 /hpf (0 - 3) Urine Microscopic WBC 3 /HPF (0-3) Urine Squamous Epithelial Cells None seen /hpf (<5) Urine Bacteria Few /hpf (None Seen) Urine Mucus Few (None Seen) Urine Glucose Normal mg/dL (Normal) Other Laboratory Tests 09/28/24 18:26 Discharge Statement: "Patient was advised to return to the ER or call 911 if any headaches, dizziness, shortness of breath, chest pain, abdominal pain, bleeding, fevers, or worsening of medical condition. Patient was counseled about treatment plan, medications, possible side effects, patientverbalized understanding. All questions were answered to the best of my ability. This discharge took greater then 30 minutes in planning, reviewing documentation, counseling the patient, and discussing with other team members." ASSESSMENT ASSESSMENT Assessment RONY WASSERMAN MD Sep 29, 2024 13:13
--- NOTE | 2024-09-29 22:12 | DVHPN2 ---
Progress Note Date Seen: Sep 29, 2024 Medical Necessity Reason Pt with a Central, PICC or Fol: No Objective vital signs Vital Sign Date Time Temp Pulse Resp B/P (MAP) Pulse Ox O2 Delivery O2 Flow Rate FiO2 09/29/24 21:51 79 18 114/74 09/29/24 21:00 97.9 94 97.9 09/29/24 20:00 Nasal Cannula* 2 28 Total Intake and Output 09/28/24 09/28/24 09/29/24 15:00 23:00 07:00 Intake Total 100 ml Output Total 300 ml Balance -200 ml medications Current Medications Medications Dose Ordered Sig/Mulu Route Start Time Stop Time Status Last Admin Dose Admin Morphine Sulfate 2 mg Q30M PRN IV 09/28/24 22:30 Nitroglycerin 0.4 mg Q5MINP PRN SL 09/28/24 22:30 Metronidazole 100 ml @ 100 mls/hr Q8HR IV 09/29/24 06:00 09/29/24 21:51 100 MLS/HR Hydromorphone HCl 0.5 mg Q4HPRN PRN IV 09/28/24 23:30 09/29/24 21:51 0.5 MG laboratory and microbiology Laboratory Tests 09/28/24 18:26 Test 09/28/24 18:26 Range/Units Serum Glucose 171 H 74-106 mg/dL Problem List/Assessment/Plan Problem List/Assessment/Plan AFEBRILE VSS ABD SOFT DRAIN IN PLACE PURULENT 10 CC NO BM NO FLATUS ILEUS OP FINDINGS EXPLAINED NURSE AT BEDSIDE CONTINUE IV ABX DRAIN CARE KEEP NPO ALLOW ICE CHIPS Plan discussed with: Patient My Orders My Orders Orders - REGI WHITAKER MD Procedure Category Date Status Time Metronidazole PHA 09/29/24 In Process 500mg/100ml (Flagyl 06:00 Hydromorphone Hcl Inj PHA 09/28/24 In Process (Dilaudid Innjecti 23:30 Electrocardigram EKG 09/29/24 Logged 18:43 REGI WHITAKER MD Sep 29, 2024 22:12
[2024-09-30] VITALS (7 sets, daily range): BP systolic 114–138; BP diastolic 71–82; PULSE 85–95; RESP 18–19; TEMP 97.9–98.9; O2SAT 92–96
--- NOTE | 2024-09-30 07:57 | ECG ---
[facility] Test Date: 2024-09-28 Test Time: 21:26:40 Pat Name: LARRY CASTORENA Department: Room: 0208T A Gender: M [employer]: TONEY : 1960 Requested By: REGI WHITAKER Order Number: [id number] Reading MD: Alen Aguilera Measurements Intervals [place] Rate: 98 P: 38 CT: 178 QRS: 20 QRSD: 86 T: 34 QT: 496 QTc: 633 Interpretive Statements Normal sinus rhythm Nonspecific T wave abnormality Prolonged QT Electronically Signed On 09-30-2024 20:26:23 PDT by Alen Aguilera Please click the below link to view image of tracing.
[2024-09-30] MEDS: ONDANSETRON HCL 4 MG/2 ML VIAL IV PRN (10:45)
[2024-09-30] MEDS: D5W/SOD CHL 0.45% 1,000 ML IV SCH (10:45)
--- NOTE | 2024-09-30 11:50 | DVHPN2 ---
Subjective The patient is seen and examined at bedside. Still nausea. No vomiting. No fever or chills. Reviewed: Care Plan, H&P, Labs, Medications, Previous Orders, Radiology Changes from previous H/P or p: No Changes Objective Vitals Vital Signs Date Time Temp Pulse Resp B/P (MAP) Pulse Ox O2 Delivery O2 Flow Rate FiO2 09/30/24 10:10 92 19 141/79 09/30/24 07:45 Room Air* 0 21 09/30/24 05:00 98.1 96 98.1 Intake/Output Intake and Output 09/30/24 07:00 Intake Total 100 ml Output Total 1050 ml Balance -950 ml Intake Oral 0 ml IV Total 100 ml Output Urine Total 1050 ml General Appearance: Alert, Oriented X3, Cooperative, No acute distress HEENT: Atraumatic, PERRLA, EOMI, Mucous membr. moist/pink Neck: Supple Lungs: Clear to auscultation, Normal air movement Cardiovascular: Regular rate, Normal S1, Normal S2, No murmurs, Gallops, Rubs Abdomen: Normal bowel sounds, Soft, No tenderness Neuro: Cranial nerves 3-12 NL Psych/Mental Status: Mental status NL Medications Current Medications Medications Dose Ordered Sig/Mulu Route Start Time Stop Time Status Last Admin Dose Admin Morphine Sulfate 2 mg Q30M PRN IV 09/28/24 22:30 Nitroglycerin 0.4 mg Q5MINP PRN SL 09/28/24 22:30 Metronidazole 100 ml @ 100 mls/hr Q8HR IV 09/29/24 06:00 09/30/24 05:11 100 MLS/HR Ondansetron HCl 4 mg Q6HPRN PRN IV 09/30/24 10:15 09/30/24 10:45 4 MG Hydromorphone HCl 1 mg Q4HPRN PRN IV 09/30/24 10:15 Dextrose/Sodium Chloride 1,000 ml @ 75 mls/hr [id number] IV 09/30/24 10:15 09/30/24 10:45 75 MLS/HR Laboratory Results Laboratory Tests 09/28/24 18:26 Urinalysis Test 09/28/24 17:30 Urine Color Yellow (Yellow) Urine Clarity Clear (Clear) Urine pH 7.0 (5.0-9.0) Urine Specific [place] 1.025 (1.001-1.035) Urine Protein 1+ (Negative) H Urine Ketones Negative (Negative) Urine Blood Negative /uL (Negative) Urine Nitrite Negative (Negative) Urine Bilirubin Negative (Negative) Urine Urobilinogen Normal mg/dL (Negative) Urine Leukocyte Esterase Negative /uL (Negative) Urine RBC 2 /hpf (0 - 3) Urine Microscopic WBC 3 /HPF (0-3) Urine Squamous Epithelial Cells None seen /hpf (<5) Urine Bacteria Few /hpf (None Seen) H Urine Mucus Few (None Seen) Urine Glucose Normal mg/dL (Normal) Labs and/or images reviewed: Labs reviewed by me Assessment/Plan Assessment/Plan Acute appendicitis status post appendectomy Hypertension Hyperlipidemia History pulmonary embolism Continuing current management with IV antibiotic metronidazole. Zofran IV PRN for nausea and vomiting. Continuing IV fluid with D5 half-normal saline. Continuing IV pain medication Diet advanced per surgeon. Continuing NPO for now Plan discussed with: Patient, Spouse My Orders Orders - RONY WASSERMAN MD Procedure Category Date Status Time Discharge DISCHARGE 09/29/24 Transmitted 13:12 Ondansetron Hcl PHA 09/30/24 In Process (Zofran) 10:15 Hydromorphone Hcl Inj PHA 09/30/24 In Process (Dilaudid Injectio 10:15 D5w/Sod Chl 0.45% PHA 09/30/24 In Process (D5w 1/2ns) 10:15 Date of Service: Sep 30, 2024 Billing Provider: RONY WASSERMAN MD Common Visit Codes: [id number] INP/OBS CARE(HIGH) RONY WASSERMAN MD Sep 30, 2024 11:50
[2024-09-30] MEDS: HYDROMORPHONE HCL 1 MG/ML INJ IV PRN (11:51)
--- NOTE | 2024-09-30 23:11 | DVHPN2 ---
Progress Note Date Seen: Sep 30, 2024 Medical Necessity Reason Pt with a Central, PICC or Fol: No Objective vital signs Vital Sign Date Time Temp Pulse Resp B/P (MAP) Pulse Ox O2 Delivery O2 Flow Rate FiO2 09/30/24 20:20 93 18 130/86 09/30/24 17:00 97.9 94 97.9 09/30/24 07:45 Room Air* 0 21 Total Intake and Output 09/29/24 09/29/24 09/30/24 15:00 23:00 07:00 Intake Total 100 ml 0 ml Output Total 600 ml 450 ml Balance -500 ml -450 ml medications Current Medications Medications Dose Ordered Sig/Mulu Route Start Time Stop Time Status Last Admin Dose Admin Morphine Sulfate 2 mg Q30M PRN IV 09/28/24 22:30 Nitroglycerin 0.4 mg Q5MINP PRN SL 09/28/24 22:30 Metronidazole 100 ml @ 100 mls/hr Q8HR IV 09/29/24 06:00 09/30/24 22:06 100 MLS/HR Ondansetron HCl 4 mg Q6HPRN PRN IV 09/30/24 10:15 09/30/24 20:19 4 MG Hydromorphone HCl 1 mg Q4HPRN PRN IV 09/30/24 10:15 09/30/24 20:20 1 MG Dextrose/Sodium Chloride 1,000 ml @ 75 mls/hr [id number] IV 09/30/24 10:15 09/30/24 10:45 75 MLS/HR laboratory and microbiology Laboratory Tests 09/28/24 18:26 Test 09/28/24 18:26 Range/Units Serum Glucose 171 H 74-106 mg/dL Problem List/Assessment/Plan Problem List/Assessment/Plan AFEBRILE VSS ABD SOFT DRAIN IN PLACE PURULENT 50 CC NO BM NO FLATUS ILEUS OP FINDINGS EXPLAINED NURSE AT BEDSIDE CONTINUE IV ABX DRAIN CARE KEEP NPO ALLOW ICE CHIPS Plan discussed with: Patient My Orders My Orders Orders - REGI WHITAKER MD Procedure Category Date Status Time Complete Blood Count LAB 10/01/24 Verified 04:00 Comprehensive LAB 10/01/24 Verified Metabolic Panel 04:00 Dietary Evaluation Review Comments: 1) Advance to 2gm Na diet as medically feasible 2) Continue current plan of care Expected Outcomes/Goals: to meet at least 75% estimated needs within 7 days FU 2-3 days REGI WHITAKER MD Sep 30, 2024 23:11
[2024-10-01] VITALS (8 sets, daily range): BP systolic 87–135; BP diastolic 46–87; PULSE 81–91; RESP 18; TEMP 97.8–98.4; O2SAT 92–98
--- NOTE | 2024-10-01 07:57 | DVHPN2 ---
Progress Note - Dictate Date Seen: Sep 30, 2024 Medical Necessity Reason Pt with a Central, PICC or Fol: No Subjective PT WITH ABD PAIN ACUTE APPENDICITIS S/P APPENDECTOMY ECHO EF >55% vital signs Vital Sign Date Time Temp Pulse Resp B/P (MAP) Pulse Ox O2 Delivery O2 Flow Rate FiO2 10/01/24 06:11 88 18 109/66 10/01/24 05:00 98.2 95 98.2 09/30/24 20:00 Nasal Cannula* 2 28 Total Intake and Output 09/30/24 09/30/24 10/01/24 15:00 23:00 07:00 Intake Total 350 ml 400 ml Output Total 1130 ml 550 ml Balance -780 ml -150 ml medications Current Medications Medications Dose Ordered Sig/Mulu Route Start Time Stop Time Status Last Admin Dose Admin Morphine Sulfate 2 mg Q30M PRN IV 09/28/24 22:30 Nitroglycerin 0.4 mg Q5MINP PRN SL 09/28/24 22:30 Metronidazole 100 ml @ 100 mls/hr Q8HR IV 09/29/24 06:00 10/01/24 05:40 100 MLS/HR Ondansetron HCl 4 mg Q6HPRN PRN IV 09/30/24 10:15 10/01/24 02:31 4 MG Hydromorphone HCl 1 mg Q4HPRN PRN IV 09/30/24 10:15 10/01/24 05:41 1 MG Dextrose/Sodium Chloride 1,000 ml @ 75 mls/hr [id number] IV 09/30/24 10:15 10/01/24 02:31 75 MLS/HR laboratory and microbiology Laboratory Tests 09/28/24 18:26 Test 09/28/24 18:26 Range/Units Serum Glucose 171 H 74-106 mg/dL Problem List ABD PAIN ACUTE APPENDICITIS S/P APPENDECTOMY ECHO EF >55% HX OF DVT HX OF PE Assessment/Plan MONITOR LABS PT DVT PROPHYLAXIS Dietary Evaluation Review Comments: 1) Advance to 2gm Na diet as medically feasible 2) Continue current plan of care Expected Outcomes/Goals: to meet at least 75% estimated needs within 7 days FU 2-3 days Plan discussed with: Patient, Spouse ANSLEY OKEEFE MD Oct 01, 2024 07:57
--- NOTE | 2024-10-01 07:59 | DVHPN2 ---
Progress Note - Dictate Date Seen: Oct 01, 2024 Medical Necessity Reason Pt with a Central, PICC or Fol: No Subjective PT WITH ABD PAIN ACUTE APPENDICITIS S/P APPENDECTOMY ECHO EF >55% vital signs Vital Sign Date Time Temp Pulse Resp B/P (MAP) Pulse Ox O2 Delivery O2 Flow Rate FiO2 10/01/24 06:11 88 18 109/66 10/01/24 05:00 98.2 95 98.2 09/30/24 20:00 Nasal Cannula* 2 28 Total Intake and Output 09/30/24 09/30/24 10/01/24 15:00 23:00 07:00 Intake Total 350 ml 400 ml Output Total 1130 ml 550 ml Balance -780 ml -150 ml medications Current Medications Medications Dose Ordered Sig/Mulu Route Start Time Stop Time Status Last Admin Dose Admin Morphine Sulfate 2 mg Q30M PRN IV 09/28/24 22:30 Nitroglycerin 0.4 mg Q5MINP PRN SL 09/28/24 22:30 Metronidazole 100 ml @ 100 mls/hr Q8HR IV 09/29/24 06:00 10/01/24 05:40 100 MLS/HR Ondansetron HCl 4 mg Q6HPRN PRN IV 09/30/24 10:15 10/01/24 02:31 4 MG Hydromorphone HCl 1 mg Q4HPRN PRN IV 09/30/24 10:15 10/01/24 05:41 1 MG Dextrose/Sodium Chloride 1,000 ml @ 75 mls/hr [id number] IV 09/30/24 10:15 10/01/24 02:31 75 MLS/HR laboratory and microbiology Laboratory Tests 09/28/24 18:26 Test 09/28/24 18:26 Range/Units Serum Glucose 171 H 74-106 mg/dL Problem List ABD PAIN ACUTE APPENDICITIS S/P APPENDECTOMY ECHO EF >55% HX OF DVT HX OF PE Assessment/Plan MONITOR LABS PT DVT PROPHYLAXIS Dietary Evaluation Review Comments: 1) Advance to 2gm Na diet as medically feasible 2) Continue current plan of care Expected Outcomes/Goals: to meet at least 75% estimated needs within 7 days FU 2-3 days Plan discussed with: Patient, Spouse ANSLEY OKEEFE MD Oct 01, 2024 07:58
[2024-10-01 08:23] LABS: Basophils # (auto) 0.3 10 ^3/uL (0-0.2); Basophils % (auto) 2.3 % (0.0-2.0); Eosinophils # (auto) 0 10 ^3/uL (0-0.8); Eosinophils % (auto) 0.1 % (0.0-7.0); Hematocrit 44.6 % (41.0-53.0); Hemoglobin 15.2 g/dL (13.5-17.5); Lymphocytes # (auto) 1.5 10 ^3/uL (0.4-5.4); Lymphocytes % (auto) 10.1 % (10.0-50.0); Mean Corpuscular Hemoglobin 31.9 pg (28.0-32.0); Mean Corpuscular Hgb Conc. 34.1 g/dL (32.0-36.0); Mean Corpuscular Volume 93.6 fL (80.0-100.0); Monocytes # (auto) 0.8 10 ^3/uL (0-1.3); Monocytes % (auto) 5.5 % (0.0-12.0); Neutrophils # (auto) 12.1 10 ^3/uL (1.6-8.6); Platelet Count (auto) 298 10^3/uL (140-450); Red Blood Cells 4.76 10^6/uL (4.5-5.90); Red Cell Distribution Width 13.7 % (11.8-14.3); White Blood Cell 14.8 10^3/uL (4.4-10.8)
[2024-10-01 08:48] LABS: Alanine Aminotransferase 14 U/L (7-40); Anion Gap 8 (5-15); Aspartate Aminotransferase 20 U/L (13-40); BUN/Creatinine Ratio 15.2 (10.0-20.0); Blood Urea Nitrogen 22 mg/dL (9-23); Calcium 9.1 mg/dL (8.7-10.4); Carbon Dioxide 24 mmol/L (20-31); Potassium 4.2 mmol/L (3.5-5.1); Sodium 139 mmol/L (136-145); Total Protein 6.3 g/dL (5.7-8.2)
[2024-10-01 08:49] LABS: Bilirubin, Total 0.3 mg/dL (0.2-1.0)
[2024-10-01 09:03] LABS: Alkaline Phosphatase 41 U/L (46-116); Chloride 107 mmol/L (98-107); Glucose 147 mg/dL (74-106)
[2024-10-01] MEDS: APIXABAN 2.5 MG TAB PO SCH (10:54)
--- NOTE | 2024-10-01 12:23 | DVHPN2 ---
Subjective The patient is seen and examined at bedside. Minimum abdominal pain. Reviewed: Care Plan, H&P, Labs, Medications, Previous Orders, Radiology Changes from previous H/P or p: No Changes Objective Vitals Vital Signs Date Time Temp Pulse Resp B/P (MAP) Pulse Ox O2 Delivery O2 Flow Rate FiO2 10/01/24 10:39 78 16 123/82 10/01/24 07:56 Nasal Cannula* 2 28 10/01/24 05:00 98.2 95 98.2 Intake/Output Intake and Output 10/01/24 07:00 Intake Total 750 ml Output Total 1680 ml Balance -930 ml Intake Oral 650 ml IV Total 100 ml Output Urine Total 850 ml Drainage Total 830 ml General Appearance: Alert, Oriented X3, Cooperative, No acute distress HEENT: Atraumatic, PERRLA, EOMI, Mucous membr. moist/pink Neck: Supple Lungs: Clear to auscultation, Normal air movement Cardiovascular: Regular rate, Normal S1, Normal S2, No murmurs, Gallops, Rubs Abdomen: Normal bowel sounds, Soft, No tenderness Neuro: Cranial nerves 3-12 NL Psych/Mental Status: Mental status NL Medications Current Medications Medications Dose Ordered Sig/Mulu Route Start Time Stop Time Status Last Admin Dose Admin Morphine Sulfate 2 mg Q30M PRN IV 09/28/24 22:30 Nitroglycerin 0.4 mg Q5MINP PRN SL 09/28/24 22:30 Ondansetron HCl 4 mg Q6HPRN PRN IV 09/30/24 10:15 10/01/24 02:31 4 MG Hydromorphone HCl 1 mg Q4HPRN PRN IV 09/30/24 10:15 10/01/24 10:39 1 MG Dextrose/Sodium Chloride 1,000 ml @ 75 mls/hr [id number] IV 09/30/24 10:15 10/01/24 02:31 75 MLS/HR Apixaban 2.5 mg BID PO 10/01/24 10:00 10/01/24 10:54 2.5 MG Laboratory Results Laboratory Tests 10/01/24 07:24 Chemistry Test 10/01/24 07:24 Albumin 4.0 g/dL (3.2-4.8) Calcium Level 9.1 mg/dL (8.7-10.4) Total Protein 6.3 g/dL (5.7-8.2) LFT Test 10/01/24 07:24 Alanine Aminotransferase (ALT) 14 U/L (7-40) Alkaline Phosphatase 41 U/L (46-116) L Aspartate Amino Transferase (AST) 20 U/L (13-40) Total Bilirubin 0.3 mg/dL (0.2-1.0) Urinalysis Test 09/28/24 17:30 Urine Color Yellow (Yellow) Urine Clarity Clear (Clear) Urine pH 7.0 (5.0-9.0) Urine Specific [place] 1.025 (1.001-1.035) Urine Protein 1+ (Negative) H Urine Ketones Negative (Negative) Urine Blood Negative /uL (Negative) Urine Nitrite Negative (Negative) Urine Bilirubin Negative (Negative) Urine Urobilinogen Normal mg/dL (Negative) Urine Leukocyte Esterase Negative /uL (Negative) Urine RBC 2 /hpf (0 - 3) Urine Microscopic WBC 3 /HPF (0-3) Urine Squamous Epithelial Cells None seen /hpf (<5) Urine Bacteria Few /hpf (None Seen) H Urine Mucus Few (None Seen) Urine Glucose Normal mg/dL (Normal) Labs and/or images reviewed: Labs reviewed by me Assessment/Plan Assessment/Plan Acute appendicitis status post appendectomy Hypertension Hyperlipidemia History pulmonary embolism Continuing current management with IV antibiotic metronidazole. Zofran IV PRN for nausea and vomiting. Continuing IV fluid with D5 half-normal saline. Continuing IV pain medication Diet advanced per surgeon. Continuing NPO for now Consider Clinimix if patient not started on diet soon. Plan discussed with: Patient Date of Service: Oct 01, 2024 Billing Provider: RONY WASSERMAN MD Common Visit Codes: [id number] INP/OBS CARE(HIGH) RONY WASSERMAN MD Oct 01, 2024 12:23
--- NOTE | 2024-10-01 20:15 | DVHPN2 ---
Progress Note Date Seen: Oct 01, 2024 Medical Necessity Reason Pt with a Central, PICC or Fol: No Objective vital signs Vital Sign Date Time Temp Pulse Resp B/P (MAP) Pulse Ox O2 Delivery O2 Flow Rate FiO2 10/01/24 18:57 79 16 121/80 10/01/24 17:00 97.8 95 97.8 10/01/24 07:56 Nasal Cannula* 2 28 Total Intake and Output 09/30/24 09/30/24 10/01/24 15:00 23:00 07:00 Intake Total 350 ml 400 ml Output Total 1130 ml 550 ml Balance -780 ml -150 ml medications Current Medications Medications Dose Ordered Sig/Mulu Route Start Time Stop Time Status Last Admin Dose Admin Morphine Sulfate 2 mg Q30M PRN IV 09/28/24 22:30 Nitroglycerin 0.4 mg Q5MINP PRN SL 09/28/24 22:30 Ondansetron HCl 4 mg Q6HPRN PRN IV 09/30/24 10:15 10/01/24 02:31 4 MG Hydromorphone HCl 1 mg Q4HPRN PRN IV 09/30/24 10:15 10/01/24 18:57 1 MG Dextrose/Sodium Chloride 1,000 ml @ 75 mls/hr [id number] IV 09/30/24 10:15 10/01/24 16:47 75 MLS/HR Apixaban 2.5 mg BID PO 10/01/24 10:00 10/01/24 10:54 2.5 MG laboratory and microbiology Laboratory Tests 10/01/24 07:24 Test 10/01/24 07:24 Range/Units Serum Glucose 147 H 74-106 mg/dL Problem List/Assessment/Plan Problem List/Assessment/Plan AFEBRILE VSS ABD SOFT DRAIN IN PLACE SEROUS 10 CC NO BM FLATUS + CONTINUE IV ABX DRAIN CARE ALLOW CLEAR LIQUIDS Plan discussed with: Patient Dietary Evaluation Review Comments: 1) Advance to 2gm Na diet as medically feasible 2) Continue current plan of care Expected Outcomes/Goals: to meet at least 75% estimated needs within 7 days FU 2-3 days REGI WHITAKER MD Oct 01, 2024 20:15
[2024-10-02] VITALS (8 sets, daily range): BP systolic 108–122; BP diastolic 70–80; PULSE 77–99; RESP 18–19; TEMP 97.5–99; O2SAT 91–99
[2024-10-02 03:56] LABS: Urine Bacteria None Seen /hpf (None Seen)
[2024-10-02 04:01] LABS: Urine Blood Negative /uL (Negative); Urine Clarity Clear (Clear); Urine Color Yellow (Yellow); Urine Mucus FEW (None Seen); Urine Protein, UAD TRACE (Negative); Urine Specific Gravity 1.032 (1.001-1.035); Urine Squamous Epithelial Cell FEW /hpf (<5); Urine Urobilinogen Normal (Negative); Urine WBC 1 /HPF (0-3)
--- NOTE | 2024-10-02 11:24 | DVHPN2 ---
Subjective The patient is seen and examined at bedside. No complaint today. Reviewed: Care Plan, H&P, Labs, Medications, Previous Orders Changes from previous H/P or p: No Changes Objective Vitals Vital Signs Date Time Temp Pulse Resp B/P (MAP) Pulse Ox O2 Delivery O2 Flow Rate FiO2 10/02/24 10:05 85 19 122/78 10/02/24 08:57 97.9 94 97.9 10/02/24 07:41 Room Air* 0 21 Intake/Output Intake and Output 10/02/24 07:00 Intake Total 2700 ml Output Total 600 ml Balance 2100 ml Intake Oral 1600 ml IV Total 1100 ml Output Urine Total 600 ml # Voids 5 # Bowel Movements 5 General Appearance: Alert, Oriented X3, Cooperative, No acute distress HEENT: Atraumatic, PERRLA, EOMI Neck: Supple Lungs: Clear to auscultation, Normal air movement Cardiovascular: Regular rate, Normal S1, Normal S2, No murmurs, Gallops, Rubs Abdomen: Normal bowel sounds, Soft Extremities: Normal pulses Neuro: Cranial nerves 3-12 NL Psych/Mental Status: Mental status NL Medications Current Medications Medications Dose Ordered Sig/Mulu Route Start Time Stop Time Status Last Admin Dose Admin Morphine Sulfate 2 mg Q30M PRN IV 09/28/24 22:30 Nitroglycerin 0.4 mg Q5MINP PRN SL 09/28/24 22:30 Ondansetron HCl 4 mg Q6HPRN PRN IV 09/30/24 10:15 10/02/24 04:32 4 MG Hydromorphone HCl 1 mg Q4HPRN PRN IV 09/30/24 10:15 10/02/24 10:05 1 MG Dextrose/Sodium Chloride 1,000 ml @ 75 mls/hr [id number] IV 09/30/24 10:15 10/01/24 16:47 75 MLS/HR Apixaban 2.5 mg BID PO 10/01/24 10:00 10/02/24 10:05 2.5 MG Laboratory Results Laboratory Tests 10/01/24 07:24 Urinalysis Test 10/02/24 03:45 Urine Color Yellow (Yellow) Urine Clarity Clear (Clear) Urine pH 6.0 (5.0-9.0) Urine Specific [place] 1.032 (1.001-1.035) Urine Protein Trace (Negative) H Urine Ketones Trace (Negative) Urine Blood Negative /uL (Negative) Urine Nitrite Negative (Negative) Urine Bilirubin Negative (Negative) Urine Urobilinogen Normal mg/dL (Negative) Urine Leukocyte Esterase Trace /uL (Negative) Urine RBC 1 /hpf (0 - 3) Urine Microscopic WBC 1 /HPF (0-3) Urine Squamous Epithelial Cells Few /hpf (<5) Urine Bacteria None seen /hpf (None Seen) Urine Mucus Few (None Seen) Urine Glucose Normal mg/dL (Normal) Assessment/Plan Assessment/Plan Acute appendicitis status post appendectomy Hypertension Hyperlipidemia History pulmonary embolism Continuing current management with IV antibiotic metronidazole. Zofran IV PRN for nausea and vomiting. Continuing IV fluid with D5 half-normal saline. Continuing IV pain medication Clinimix Diet advanced per surgeon. Continuing NPO for now Plan discussed with: Patient Date of Service: Oct 02, 2024 Billing Provider: RONY WASSERMAN MD Common Visit Codes: [id number] INP/OBS CARE(HIGH) RONY WASSERMAN MD Oct 02, 2024 11:24
--- NOTE | 2024-10-02 11:26 | DVHPN2 ---
Progress Note Date Seen: Oct 02, 2024 Medical Necessity Reason Pt with a Central, PICC or Fol: No Objective vital signs Vital Sign Date Time Temp Pulse Resp B/P (MAP) Pulse Ox O2 Delivery O2 Flow Rate FiO2 10/02/24 10:05 85 19 122/78 10/02/24 08:57 97.9 94 97.9 10/02/24 07:41 Room Air* 0 21 Total Intake and Output 10/01/24 10/01/24 10/02/24 15:00 23:00 07:00 Intake Total 1100 ml 800 ml 800 ml Output Total 600 ml Balance 1100 ml 200 ml 800 ml medications Current Medications Medications Dose Ordered Sig/Mulu Route Start Time Stop Time Status Last Admin Dose Admin Morphine Sulfate 2 mg Q30M PRN IV 09/28/24 22:30 Nitroglycerin 0.4 mg Q5MINP PRN SL 09/28/24 22:30 Ondansetron HCl 4 mg Q6HPRN PRN IV 09/30/24 10:15 10/02/24 04:32 4 MG Hydromorphone HCl 1 mg Q4HPRN PRN IV 09/30/24 10:15 10/02/24 10:05 1 MG Dextrose/Sodium Chloride 1,000 ml @ 75 mls/hr [id number] IV 09/30/24 10:15 10/01/24 16:47 75 MLS/HR Apixaban 2.5 mg BID PO 10/01/24 10:00 10/02/24 10:05 2.5 MG laboratory and microbiology Laboratory Tests 10/01/24 07:24 Test 10/01/24 07:24 Range/Units Serum Glucose 147 H 74-106 mg/dL Problem List/Assessment/Plan Problem List/Assessment/Plan AFEBRILE VSS ABD SOFT DRAIN IN PLACE SEROUS 10 CC BM+ FLATUS + CONTINUE IV ABX DRAIN CARE ADVANCE DIET MICHAEL FAMILY AND NURSE AT BEDSIDE Plan discussed with: Patient My Orders My Orders Orders - REGI WHITAKER MD Procedure Category Date Status Time Soft Diet DIET 10/02/24 Transmitted Lunch Dietary Evaluation Review Comments: 1) Advance to 2gm Na diet as medically feasible 2) Continue current plan of care Expected Outcomes/Goals: to meet at least 75% estimated needs within 7 days FU 2-3 days REGI WHITAKER MD Oct 02, 2024 11:26
[2024-10-02] MEDS ORDERED: HYDROMORPHONE HCL 1 MG/ML INJ IV PRN (13:15)
[2024-10-02] MEDS: HYDROcodone-ACET 10/325MG TAB PO PRN (16:39)
[2024-10-02] MEDS: ACETAMINOPHEN 325 MG TAB PO ONE (20:59)
[2024-10-03 05:00] VITALS: BP 150/88; PULSE 73; RESP 17; TEMP 97.8; O2SAT 95
[2024-10-03 08:00] VITALS: PULSE 79
[2024-10-03 09:00] VITALS: BP 123/84; PULSE 83; RESP 19; TEMP 98; O2SAT 92
--- NOTE | 2024-10-03 11:42 | DVHPN2 ---
Subjective The patient seen and examined at bedside. The patient still have abdominal pain. Reviewed: Care Plan, H&P, Labs, Medications, Previous Orders, Radiology Changes from previous H/P or p: No Changes Objective Vitals Vital Signs Date Time Temp Pulse Resp B/P (MAP) Pulse Ox O2 Delivery O2 Flow Rate FiO2 10/03/24 05:00 97.8 73 17 150/88 (108) 95 97.8 10/02/24 20:00 Room Air* 0 21 Intake/Output Intake and Output 10/03/24 07:00 Intake Total 2960 ml Output Total 160 ml Balance 2800 ml Intake Oral 2060 ml IV Total 900 ml Drainage Total 160 ml # Voids 8 # Bowel Movements 5 General Appearance: Alert, Oriented X3, Cooperative, No acute distress HEENT: Atraumatic, PERRLA, EOMI, Mucous membr. moist/pink Neck: Supple Lungs: Clear to auscultation, Normal air movement Cardiovascular: Regular rate, Normal S1, Normal S2, No murmurs, Gallops, Rubs Abdomen: Normal bowel sounds, Soft, No tenderness Neuro: Cranial nerves 3-12 NL Psych/Mental Status: Mental status NL Medications Current Medications Medications Dose Ordered Sig/Mulu Route Start Time Stop Time Status Last Admin Dose Admin Morphine Sulfate 2 mg Q30M PRN IV 09/28/24 22:30 Nitroglycerin 0.4 mg Q5MINP PRN SL 09/28/24 22:30 Ondansetron HCl 4 mg Q6HPRN PRN IV 09/30/24 10:15 10/02/24 04:32 4 MG Apixaban 2.5 mg BID PO 10/01/24 10:00 10/02/24 21:49 2.5 MG Acetaminophen/ Hydrocodone Bitart 1 tab Q4HP PRN PO 10/02/24 15:45 10/03/24 05:32 1 TAB Pantoprazole Sodium 40 mg DAILY IV 10/03/24 10:00 Laboratory Results Laboratory Tests 10/01/24 07:24 Urinalysis Test 10/02/24 03:45 Urine Color Yellow (Yellow) Urine Clarity Clear (Clear) Urine pH 6.0 (5.0-9.0) Urine Specific [place] 1.032 (1.001-1.035) Urine Protein Trace (Negative) H Urine Ketones Trace (Negative) Urine Blood Negative /uL (Negative) Urine Nitrite Negative (Negative) Urine Bilirubin Negative (Negative) Urine Urobilinogen Normal mg/dL (Negative) Urine Leukocyte Esterase Trace /uL (Negative) Urine RBC 1 /hpf (0 - 3) Urine Microscopic WBC 1 /HPF (0-3) Urine Squamous Epithelial Cells Few /hpf (<5) Urine Bacteria None seen /hpf (None Seen) Urine Mucus Few (None Seen) Urine Glucose Normal mg/dL (Normal) Labs and/or images reviewed: Labs reviewed by me Assessment/Plan Assessment/Plan Acute appendicitis status post appendectomy Hypertension Hyperlipidemia History pulmonary embolism Continuing current management with IV antibiotic metronidazole. Zofran IV PRN for nausea and vomiting. Continuing IV fluid with D5 half-normal saline. Continuing IV pain medication Diet advanced per surgeon. Continuing NPO for now Continuing Clinimix Plan discussed with: Patient My Orders Orders - RONY WASSERMAN MD Procedure Category Date Status Time Hydrocodone-Acet PHA 10/02/24 In Process 10/325mg Tab ([place] 15:45 Date of Service: Oct 03, 2024 Billing Provider: RONY WASSERMAN MD Common Visit Codes: [id number] INP/OBS CARE(HIGH) RONY WASSERMAN MD Oct 03, 2024 11:42
[2024-10-03] MEDS: PANTOPRAZOLE 40 MG/10 ML VIAL INJ IV SCH (12:12)
[2024-10-03] MEDS: D5W 5% 1,000 ML IV SCH (12:30)
[2024-10-03 13:00] VITALS: BP 125/80; PULSE 87; RESP 19; TEMP 97.7; O2SAT 92
--- NOTE | 2024-10-03 13:51 | DVH ---
EXAM: CT Abdomen and Pelvis Without Intravenous Contrast CLINICAL INDICATION: SMALL BOWEL OBSTRUCTION TECHNIQUE: Axial computed tomography images of the abdomen and pelvis without intravenous contrast. This CT exam was performed using one or more of the following dose reduction techniques: automated exposure control, adjustment of the mA and/or kV according to patient size, and/or use of iterative r econstruction technique. CONTRAST: RADIATION DOSE: CTDIvol = 22.61 mGy, DLP = 1369.13 mGy-cm COMPARISON: CT CT AB PEL WO CON-NO ORAL OR IV on DOS: 09/28/24 FINDINGS: LUNG BASES: Bibasilar atelectasis. ABDOMEN: LIVER: Unremarkable. GALLBLADDER AND BILE DUCTS: Unremarkable. No calcified stones. No ductal dilation. PANCREAS: Unremarkable. No ductal dilation. SPLEEN: Unremarkable. No splenomegaly. ADRENALS: Unremarkable. No mass. KIDNEYS AND URETERS: Punctate nephrolithiasis without hydronephrosis, bilaterally. STOMACH AND BOWEL: Dilated small bowel with differential air-fluid levels measuring up to 4.6 cm in diameter concerning for small bowel obstruction with possible transition point in the right lower ab dominal quadrant. Bowel surgery and renal anastomosis in the right lower abdominal quadrant. No muc osal thickening. PELVIS: APPENDIX: No findings to suggest acute appendicitis. BLADDER: Unremarkable. No stones. REPRODUCTIVE: Unremarkable as visualized. ABDOMEN and PELVIS: INTRAPERITONEAL SPACE: Small pneumoperitoneum. This could be secondary to recent surgery. Clinica l correlation is recommended. No significant fluid collection. BONES/JOINTS: No acute fracture. No dislocation. SOFT TISSUES: Unremarkable. VASCULATURE: Unremarkable. No abdominal aortic aneurysm. LYMPH NODES: Unremarkable. No enlarged lymph nodes. OTHER FINDINGS: . . IMPRESSION: 1. Dilated small bowel with differential air-fluid levels measuring up to 4.6 cm in diameter concern ing for small bowel obstruction with possible transition point in the right lower abdominal quadrant. 2. Small pneumoperitoneum. This could be secondary to recent surgery. Clinical correlation is brandyn mmended.
--- NOTE | 2024-10-03 14:34 | DVHPN2 ---
Progress Note Date Seen: Oct 03, 2024 Medical Necessity Reason Pt with a Central, PICC or Fol: No Objective vital signs Vital Sign Date Time Temp Pulse Resp B/P (MAP) Pulse Ox O2 Delivery O2 Flow Rate FiO2 10/03/24 05:00 97.8 73 17 150/88 (108) 95 97.8 10/02/24 20:00 Room Air* 0 21 Total Intake and Output 10/02/24 10/02/24 10/03/24 15:00 23:00 07:00 Intake Total 1410 ml 1000 ml 550 ml Output Total 160 ml Balance 1410 ml 1000 ml 390 ml medications Current Medications Medications Dose Ordered Sig/Mulu Route Start Time Stop Time Status Last Admin Dose Admin Morphine Sulfate 2 mg Q30M PRN IV 09/28/24 22:30 Nitroglycerin 0.4 mg Q5MINP PRN SL 09/28/24 22:30 Ondansetron HCl 4 mg Q6HPRN PRN IV 09/30/24 10:15 10/03/24 12:12 4 MG Apixaban 2.5 mg BID PO 10/01/24 10:00 10/03/24 12:12 2.5 MG Acetaminophen/ Hydrocodone Bitart 1 tab Q4HP PRN PO 10/02/24 15:45 10/03/24 05:32 1 TAB Pantoprazole Sodium 40 mg DAILY IV 10/03/24 10:00 10/03/24 12:12 40 MG Dextrose 1,000 ml @ 75 mls/hr [id number] IV 10/03/24 12:30 laboratory and microbiology Laboratory Tests 10/01/24 07:24 Test 10/01/24 07:24 Range/Units Serum Glucose 147 H 74-106 mg/dL Problem List/Assessment/Plan Problem List/Assessment/Plan AFEBRILE VSS ABD SOFT DRAIN PULLED OUT BY PT RETAINING SUTURE REMOVED AT BEDSIDE BM+ FLATUS + CONTINUE IV ABX N/V POSSIBLE ILEUS KEEP NPO FAMILY AND NURSE AT BEDSIDE Plan discussed with: Patient Dietary Evaluation Review Comments: 1) Advance to 2gm Na diet as medically feasible 2) Continue current plan of care Expected Outcomes/Goals: to meet at least 75% estimated needs within 7 days FU 2-3 days REGI WHITAKER MD Oct 03, 2024 14:34
[2024-10-03 17:00] VITALS: BP 130/84; PULSE 103; RESP 18; TEMP 97.7; O2SAT 93
[2024-10-03 20:00] VITALS: PULSE 95; RESP 20
[2024-10-03] MEDS: MORPHINE SULFATE INJ 2 MG/ml SYRG IV PRN (20:03)
--- NOTE | 2024-10-03 20:09 | DVH ---
Clinical statement: NG Tube. Study: Chest x-ray single view. Comparison: CHEST PORTABLE on DOS: 12/17/20 Ordering physician: RONY WASSERMAN Findings: Lung volumes are hypoinflated with basilar atelectasis. Background airway inflammation is suspected. There is no consolidation, effusion, edema or pneumothorax. The cardiac and mediastinal silhouette is unremarkable. The trachea is midline. The osseous structures are unremarkable. Impression: 1. Hypoinflation and basilar atelectasis with suspected airway inflammation. An NG tube is not iden tified on this exam. End of impression. HS: Y Location Code: [facility]
--- NOTE | 2024-10-03 22:22 | DVH ---
Examination: CXR1 CLINICAL INDICATION: NGT placement COMPARISON: None. TECHNIQUE: Frontal radiograph of the chest was obtained. FINDINGS: NG tube is identified with its tip in stomach. Right diaphragmatic hump may represent indentation. Subsegmental atelectasis is seen in the right lung base. Blunting of the left costophrenic angle may represent minimal pleural effusion/pleural thickening. Rest of the lung manning appear clear. Trachea and mediastinum are midline. The cardiomediastinal silhouette is within normal limits. Bony thoracic cage appears normal. No acute osseous abnormality. IMPRESSION: 1. NG tube is identified with its tip in stomach. 2. Right diaphragmatic hump may represent indentation. 3. Subsegmental atelectasis is seen in the right lung base. 4. Blunting of the left costophrenic angle may represent minimal pleural effusion/pleural thickening. Electronically Signed 10/03/2024 22:21 Milly Bhatt
[2024-10-04] VITALS (8 sets, daily range): BP systolic 112–141; BP diastolic 57–89; PULSE 64–81; RESP 17–20; TEMP 97.8–98.6; O2SAT 92–98
[2024-10-04] MEDS: ONDANSETRON HCL 4 MG/2 ML VIAL IV PRN (00:39)
[2024-10-04] MEDS: MORPHINE SULFATE INJ 2 MG/ml SYRG IV PRN (00:40)
[2024-10-04 10:24] LABS: Basophils # (auto) 0.1 10 ^3/uL (0-0.2); Basophils % (auto) 0.7 % (0.0-2.0); Eosinophils # (auto) 0.1 10 ^3/uL (0-0.8); Eosinophils % (auto) 1.8 % (0.0-7.0); Hematocrit 43.4 % (41.0-53.0); Hemoglobin 14.8 g/dL (13.5-17.5); Lymphocytes # (auto) 1.2 10 ^3/uL (0.4-5.4); Lymphocytes % (auto) 17.3 % (10.0-50.0); Mean Corpuscular Hemoglobin 31.3 pg (28.0-32.0); Mean Corpuscular Hgb Conc. 34.1 g/dL (32.0-36.0); Mean Corpuscular Volume 91.8 fL (80.0-100.0); Monocytes # (auto) 0.9 10 ^3/uL (0-1.3); Monocytes % (auto) 12.1 % (0.0-12.0); Neutrophils # (auto) 4.9 10 ^3/uL (1.6-8.6); Neutrophils % (auto) 68.1 % (37.0-80.0); Platelet Count (auto) 390 10^3/uL (140-450); Red Blood Cells 4.73 10^6/uL (4.5-5.90); Red Cell Distribution Width 13.6 % (11.8-14.3); White Blood Cell 7.2 10^3/uL (4.4-10.8)
[2024-10-04 10:44] LABS: Albumin 4.2 g/dL (3.2-4.8); Alkaline Phosphatase 58 U/L (46-116); Anion Gap 10 (5-15); BUN/Creatinine Ratio 19.7 (10.0-20.0); Carbon Dioxide 24 mmol/L (20-31); Chloride 102 mmol/L (98-107); Potassium 3.6 mmol/L (3.5-5.1); Sodium 136 mmol/L (136-145); Total Protein 6.6 g/dL (5.7-8.2)
[2024-10-04 10:45] LABS: Bilirubin, Total 0.5 mg/dL (0.2-1.0)
[2024-10-04 10:46] LABS: Alanine Aminotransferase 59 U/L (7-40); Aspartate Aminotransferase 41 U/L (13-40); Blood Urea Nitrogen 25 mg/dL (9-23); Glucose 153 mg/dL (74-106)
--- NOTE | 2024-10-04 12:20 | DVH ---
CHEST RADIOGRAPH Indication: NG tube placement Verification Technique: Single frontal view of the chest was obtained COMPARISON: XY CHEST XRAY 1 VIEW on DOS: 10/03/24, XY CHEST XRAY 1 VIEW on DOS: 10/03/24 FINDINGS: Lines and Tubes: None Lungs: Left basilar subsegmental atelectasis. Pleura: No effusion. No pneumothorax. Cardiomediastinal contours: Unremarkable Bones: Unremarkable IMPRESSION: Left basilar subsegmental atelectasis.
--- NOTE | 2024-10-04 12:34 | DVHPN2 ---
Progress Note - Dictate Date Seen: Oct 02, 2024 Medical Necessity Reason Pt with a Central, PICC or Fol: No Subjective PT WITH ABD PAIN ACUTE APPENDICITIS S/P APPENDECTOMY ECHO EF >55% vital signs Vital Sign Date Time Temp Pulse Resp B/P (MAP) Pulse Ox O2 Delivery O2 Flow Rate FiO2 10/04/24 09:00 97.8 68 18 126/77 (93) 93 97.8 10/03/24 20:00 Room Air* 0 21 Total Intake and Output 10/03/24 10/03/24 10/04/24 15:00 23:00 07:00 Intake Total 510 ml 0 ml 650 ml Output Total 502 ml Balance 510 ml 0 ml 148 ml medications Current Medications Medications Dose Ordered Sig/Mulu Route Start Time Stop Time Status Last Admin Dose Admin Morphine Sulfate 2 mg Q30M PRN IV 09/28/24 22:30 Nitroglycerin 0.4 mg Q5MINP PRN SL 09/28/24 22:30 Apixaban 2.5 mg BID PO 10/01/24 10:00 10/03/24 12:12 2.5 MG Acetaminophen/ Hydrocodone Bitart 1 tab Q4HP PRN PO 10/02/24 15:45 10/03/24 05:32 1 TAB Pantoprazole Sodium 40 mg DAILY IV 10/03/24 10:00 10/04/24 09:26 40 MG Dextrose 1,000 ml @ 75 mls/hr [id number] IV 10/03/24 12:30 10/03/24 12:30 75 MLS/HR Morphine Sulfate 2 mg Q4HPRN PRN IV 10/04/24 00:15 10/04/24 00:40 2 MG Ondansetron HCl 4 mg Q4HPRN PRN IV 10/04/24 00:15 10/04/24 09:26 4 MG laboratory and microbiology Laboratory Tests 10/04/24 10:10 Test 10/04/24 10:10 Range/Units Serum Glucose 153 H 74-106 mg/dL Problem List ABD PAIN ACUTE APPENDICITIS S/P APPENDECTOMY ECHO EF >55% HX OF DVT HX OF PE Assessment/Plan MONITOR LABS PT DVT PROPHYLAXIS Dietary Evaluation Review Comments: 1) Advance to 2gm Na diet as medically feasible 2) Continue current plan of care Expected Outcomes/Goals: to meet at least 75% estimated needs within 7 days FU 2-3 days Plan discussed with: Patient, Spouse ANSLEY OKEEFE MD Oct 04, 2024 12:34
--- NOTE | 2024-10-04 12:36 | DVHPN2 ---
Progress Note - Dictate Date Seen: Oct 04, 2024 Medical Necessity Reason Pt with a Central, PICC or Fol: No Subjective PT WITH ABD PAIN ACUTE APPENDICITIS S/P APPENDECTOMY ECHO EF >55% vital signs Vital Sign Date Time Temp Pulse Resp B/P (MAP) Pulse Ox O2 Delivery O2 Flow Rate FiO2 10/04/24 09:00 97.8 68 18 126/77 (93) 93 97.8 10/03/24 20:00 Room Air* 0 21 Total Intake and Output 10/03/24 10/03/24 10/04/24 15:00 23:00 07:00 Intake Total 510 ml 0 ml 650 ml Output Total 502 ml Balance 510 ml 0 ml 148 ml medications Current Medications Medications Dose Ordered Sig/Mulu Route Start Time Stop Time Status Last Admin Dose Admin Morphine Sulfate 2 mg Q30M PRN IV 09/28/24 22:30 Nitroglycerin 0.4 mg Q5MINP PRN SL 09/28/24 22:30 Apixaban 2.5 mg BID PO 10/01/24 10:00 10/03/24 12:12 2.5 MG Acetaminophen/ Hydrocodone Bitart 1 tab Q4HP PRN PO 10/02/24 15:45 10/03/24 05:32 1 TAB Pantoprazole Sodium 40 mg DAILY IV 10/03/24 10:00 10/04/24 09:26 40 MG Dextrose 1,000 ml @ 75 mls/hr [id number] IV 10/03/24 12:30 10/03/24 12:30 75 MLS/HR Morphine Sulfate 2 mg Q4HPRN PRN IV 10/04/24 00:15 10/04/24 00:40 2 MG Ondansetron HCl 4 mg Q4HPRN PRN IV 10/04/24 00:15 10/04/24 09:26 4 MG laboratory and microbiology Laboratory Tests 10/04/24 10:10 Test 10/04/24 10:10 Range/Units Serum Glucose 153 H 74-106 mg/dL Problem List ABD PAIN ACUTE APPENDICITIS S/P APPENDECTOMY ECHO EF >55% HX OF DVT HX OF PE Assessment/Plan MONITOR LABS PT DVT PROPHYLAXIS ATELECTASIS ILEUS BY CT PT NPO FOR NOW EVEN THOUGH PT WITH BS AND BM Dietary Evaluation Review Comments: 1) Advance to 2gm Na diet as medically feasible 2) Continue current plan of care Expected Outcomes/Goals: to meet at least 75% estimated needs within 7 days FU 2-3 days Plan discussed with: Patient, Spouse ANSLEY OKEEFE MD Oct 04, 2024 12:36
--- NOTE | 2024-10-04 15:05 | DVH ---
EXAM: XY CHEST XRAY 1 VIEW HISTORY: NG Tube placement (Re insertion of tube) COMPARISON: XY CHEST XRAY 1 VIEW on DOS: 10/04/24, XY CHEST XRAY 1 VIEW on DOS: 10/03/24, XY CHEST XRAY 1 VIEW on DOS: 10/03/24, CHEST PORTABLE on DOS: 12/17/20 TECHNIQUE: Portable upright AP view of the chest was performed. FINDINGS: NG tube is identified with its tip in the stomach about 10 cm distal to the GE junction. There is sta ble bilateral lung base opacities. Lung volumes are somewhat low, stable. No pneumothorax or pulmonar y edema. The heart is not enlarged. IMPRESSION: 1. NG tube tip is in the stomach about 10 cm distal to the GE junction. 2. Stable bilateral lung base opacities.
--- NOTE | 2024-10-04 16:04 | DVHPN2 ---
Subjective 10/04 patient is status post lap appendectomy, surgery following. We will start antibiotics today. Patient yesterday had p.o. intolerance with nausea and vomiting after trying clear liquid diet. CT was done which showed possible small bowel obstruction in the right lower quadrant. Patient was made NPO and NG tube was inserted and put on intermittent suction. Surgery following labs pending patient feeling improved remains NPO, ambulating, having BM/gas. Reviewed: H&P Changes from previous H/P or p: No Changes General: Per HPI Objective Vitals Vital Signs Date Time Temp Pulse Resp B/P (MAP) Pulse Ox O2 Delivery O2 Flow Rate FiO2 10/04/24 12:47 98.3 70 17 127/79 (95) 95 98.3 10/03/24 20:00 Room Air* 0 21 Intake/Output Intake and Output 10/04/24 07:00 Intake Total 1160 ml Output Total 502 ml Balance 658 ml Intake Oral 1160 ml Output Urine Total 2 ml Gastric Drainage Total 500 ml # Voids 4 Exam GEN: Healthy appearing, well-developed, NAD. HEENT: NC/AT; MMM. CV: RRR, no m/r/g. LUNGS: CTAB, no w/r/c. ABD: Abdominal binder present, abdominal incisions dressing is CDI, bowel sounds hypoactive, abdomen mildly tender right lower quadrant, NG tube inserted with green-yellow output,. EXT: skin Warm, well perfused. no rashes. No clubbing, cyanosis, or edema. NEURO: Ambulating with no limitations. No focal deficits. Medications Current Medications Medications Dose Ordered Sig/Mulu Route Start Time Stop Time Status Last Admin Dose Admin Morphine Sulfate 2 mg Q30M PRN IV 09/28/24 22:30 Nitroglycerin 0.4 mg Q5MINP PRN SL 09/28/24 22:30 Apixaban 2.5 mg BID PO 10/01/24 10:00 10/03/24 12:12 2.5 MG Acetaminophen/ Hydrocodone Bitart 1 tab Q4HP PRN PO 10/02/24 15:45 10/03/24 05:32 1 TAB Pantoprazole Sodium 40 mg DAILY IV 10/03/24 10:00 10/04/24 09:26 40 MG Dextrose 1,000 ml @ 75 mls/hr [id number] IV 10/03/24 12:30 10/03/24 12:30 75 MLS/HR Morphine Sulfate 2 mg Q4HPRN PRN IV 10/04/24 00:15 10/04/24 00:40 2 MG Ondansetron HCl 4 mg Q4HPRN PRN IV 10/04/24 00:15 10/04/24 09:26 4 MG Laboratory Results Laboratory Tests 10/04/24 10:10 Chemistry Test 10/04/24 10:10 Albumin 4.2 g/dL (3.2-4.8) Calcium Level 9.0 mg/dL (8.7-10.4) Total Protein 6.6 g/dL (5.7-8.2) LFT Test 10/04/24 10:10 Alanine Aminotransferase (ALT) 59 U/L (7-40) H Alkaline Phosphatase 58 U/L (46-116) Aspartate Amino Transferase (AST) 41 U/L (13-40) H Total Bilirubin 0.5 mg/dL (0.2-1.0) Urinalysis Test 10/02/24 03:45 Urine Color Yellow (Yellow) Urine Clarity Clear (Clear) Urine pH 6.0 (5.0-9.0) Urine Specific [place] 1.032 (1.001-1.035) Urine Protein Trace (Negative) H Urine Ketones Trace (Negative) Urine Blood Negative /uL (Negative) Urine Nitrite Negative (Negative) Urine Bilirubin Negative (Negative) Urine Urobilinogen Normal mg/dL (Negative) Urine Leukocyte Esterase Trace /uL (Negative) Urine RBC 1 /hpf (0 - 3) Urine Microscopic WBC 1 /HPF (0-3) Urine Squamous Epithelial Cells Few /hpf (<5) Urine Bacteria None seen /hpf (None Seen) Urine Mucus Few (None Seen) Urine Glucose Normal mg/dL (Normal) Labs and/or images reviewed: Labs reviewed by me, Image(s) reviewed by me Assessment/Plan Assessment/Plan 10/04 patient is status post lap appendectomy, surgery following. We will start antibiotics today. Patient yesterday had p.o. intolerance with nausea and vomiting after trying clear liquid diet. CT was done which showed possible small bowel obstruction in the right lower quadrant. Patient was made NPO and NG tube was inserted and put on intermittent suction. Surgery following labs pending patient feeling improved remains NPO, ambulating, having BM/gas. Acute appendicitis with abscess, status post laparoscopic appendectomy Acute abdominal pain, resolving Intractable nausea and vomiting, resolving Postop bowel obstruction, expected course - NPO NG tube to intermittent suction Surgery following IV Unasyn Diet NPO DVT prophylaxis Lovenox GI prophylaxis Protonix Med tele Full code Plan discussed with: Patient My Orders Orders - FERNANDEZ LEUNG MD Procedure Category Date Status Time Chest Xray 1 View XY 10/04/24 Resulted 11:50 Chest Xray 1 View XY 10/04/24 Resulted 14:38 Date of Service: Oct 04, 2024 Billing Provider: FERNANDEZ LEUNG MD Common Visit Codes: [id number] INP/OBS CARE(HIGH) FERNANDEZ LEUNG MD Oct 04, 2024 16:04
[2024-10-04] MEDS ORDERED: AMPICILLIN & SULBACTAM SODIUM 3 GM in SODIUM CHL 0.9% 100 ML IV SCH (17:00)
[2024-10-04] MEDS ORDERED: HYDROMORPHONE HCL 1 MG/ML INJ IV PRN (19:15)
--- NOTE | 2024-10-04 19:41 | DVHPN2 ---
Progress Note Date Seen: Oct 04, 2024 Medical Necessity Reason Pt with a Central, PICC or Fol: No Objective vital signs Vital Sign Date Time Temp Pulse Resp B/P (MAP) Pulse Ox O2 Delivery O2 Flow Rate FiO2 10/04/24 16:51 98.2 81 18 125/72 (89) 92 98.2 10/04/24 08:00 Room Air* 0 21 Total Intake and Output 10/03/24 10/03/24 10/04/24 15:00 23:00 07:00 Intake Total 510 ml 0 ml 650 ml Output Total 502 ml Balance 510 ml 0 ml 148 ml medications Current Medications Medications Dose Ordered Sig/Mulu Route Start Time Stop Time Status Last Admin Dose Admin Morphine Sulfate 2 mg Q30M PRN IV 09/28/24 22:30 Nitroglycerin 0.4 mg Q5MINP PRN SL 09/28/24 22:30 Apixaban 2.5 mg BID PO 10/01/24 10:00 10/03/24 12:12 2.5 MG Acetaminophen/ Hydrocodone Bitart 1 tab Q4HP PRN PO 10/02/24 15:45 10/03/24 05:32 1 TAB Pantoprazole Sodium 40 mg DAILY IV 10/03/24 10:00 10/04/24 09:26 40 MG Dextrose 1,000 ml @ 75 mls/hr [id number] IV 10/03/24 12:30 10/04/24 15:10 75 MLS/HR Morphine Sulfate 2 mg Q4HPRN PRN IV 10/04/24 00:15 10/04/24 00:40 2 MG Ondansetron HCl 4 mg Q4HPRN PRN IV 10/04/24 00:15 10/04/24 09:26 4 MG Ciprofloxacin 200 ml @ 200 mls/hr Q8HR IV 10/04/24 22:00 Future hold Metronidazole 100 ml @ 100 mls/hr Q8HR IV 10/04/24 22:00 Hydromorphone HCl 0.25 mg Q4HPRN PRN IV 10/04/24 19:15 laboratory and microbiology Laboratory Tests 10/04/24 10:10 Test 10/04/24 10:10 Range/Units Serum Glucose 153 H 74-106 mg/dL Problem List/Assessment/Plan Problem List/Assessment/Plan AFEBRILE VSS ABD SOFT DRAIN PULLED OUT BY PT RETAINING SUTURE REMOVED AT BEDSIDE BM+ FLATUS + CONTINUE IV ABX N/V POSSIBLE ILEUS KEEP NPO NG IN PLACE CT SCAN ABD PELVIS R/O DISTAL SBO ILEUS FAMILY AND NURSE AT BEDSIDE Plan discussed with: Patient My Orders My Orders Orders - REGI WHITAKER MD Procedure Category Date Status Time Hydromorphone Hcl Inj PHA 10/04/24 In Process (Dilaudid Injectio 19:15 Dietary Evaluation Review Comments: 1) Advance to 2gm Na diet as medically feasible 2) Continue current plan of care Expected Outcomes/Goals: to meet at least 75% estimated needs within 7 days FU 2-3 days REGI WHITAKER MD Oct 04, 2024 19:41
[2024-10-04] MEDS: metroNIDAZOLE 500MG/100ML 100 ML IV SCH (20:55)
[2024-10-04] MEDS ORDERED: CIPROFLOXACIN 400MG/200ML 200 ML IV SCH (22:00)
[2024-10-05] VITALS (7 sets, daily range): BP systolic 97–113; BP diastolic 62–68; PULSE 60–74; RESP 14–20; TEMP 97.5–98.2; O2SAT 93–100
[2024-10-05 07:06] LABS: Basophils # (auto) 0 10 ^3/uL (0-0.2); Basophils % (auto) 0.5 % (0.0-2.0); Eosinophils # (auto) 0.2 10 ^3/uL (0-0.8); Hematocrit 40.8 % (41.0-53.0); Hemoglobin 14.2 g/dL (13.5-17.5); Lymphocytes # (auto) 1.4 10 ^3/uL (0.4-5.4); Lymphocytes % (auto) 17.8 % (10.0-50.0); Mean Corpuscular Hemoglobin 31.9 pg (28.0-32.0); Mean Corpuscular Hgb Conc. 34.8 g/dL (32.0-36.0); Mean Corpuscular Volume 91.5 fL (80.0-100.0); Monocytes % (auto) 12.3 % (0.0-12.0); Neutrophils # (auto) 5.3 10 ^3/uL (1.6-8.6); Neutrophils % (auto) 67.4 % (37.0-80.0); Platelet Count (auto) 375 10^3/uL (140-450); Red Blood Cells 4.46 10^6/uL (4.5-5.90); Red Cell Distribution Width 13.6 % (11.8-14.3); White Blood Cell 7.8 10^3/uL (4.4-10.8)
--- NOTE | 2024-10-05 07:55 | ECG ---
[facility] Test Date: 2024-10-04 Test Time: 21:28:17 Pat Name: LARRY CASTORENA Department: Room: 0216T B Gender: M Reweaver: momo : 1960 Requested By: FERNANDEZ ESPINOZA Order Number: [id number] Reading MD: Alen Aguilera Measurements Intervals [place] Rate: 74 P: 39 IN: 186 QRS: -13 QRSD: 97 T: 51 QT: 444 QTc: 493 Interpretive Statements Sinus rhythm Low voltage, precordial leads Borderline prolonged QT interval Artifact in lead(s) V1,V2 and baseline wander in lead(s) V1,V2 Electronically Signed On 10-06-2024 20:34:48 PDT by Alen Aguilera Please click the below link to view image of tracing.
[2024-10-05] MEDS ORDERED: diphenhdrAMINE HCL 50 MG/1 ML VL IV PRN (10:00)
[2024-10-05] MEDS: BACLOFEN 10 MG TAB PO SCH (10:00)
--- NOTE | 2024-10-05 10:54 | DVHPN2 ---
Subjective Update 10/05 10/04 patient is status post lap appendectomy, surgery following. We will start antibiotics today. Patient yesterday had p.o. intolerance with nausea and vomiting after trying clear liquid diet. CT was done which showed possible small bowel obstruction in the right lower quadrant. Patient was made NPO and NG tube was inserted and put on intermittent suction. Surgery following labs pending patient feeling improved remains NPO, ambulating, having BM/gas. 10/05 showed me some absent bowel sounds this morning but not complaining of any abdominal pain. No bowel movement but is passing some gas. Patient was NPO. Complaining of back pain from lying in bed. Patient was ambulating, but has history of DVT and Eliquis is being held because of NPO. We will start full- dose Lovenox and continue ambulation. Patient abdominal binder is bothering him, notified to use abdominal binder when ambulating. We will try some a.m. p.o. meds for morning only and hold off suction by NG during that time.. Today plan we will start full-dose Lovenox continue ambulation, trial IV ceftriaxone with p.r.n. Benadryl if hives breaks out, Toradol IV 15 p.r.n. for severe pain, baclofen a.m. and out of bed in chair during the. Surgery to continue following. For antibiotics continue Flagyl, with trial of ceftriaxone (we will not do Cipro because QTC is 490). Reviewed: H&P Changes from previous H/P or p: No Changes General: Per HPI Objective Vitals Vital Signs Date Time Temp Pulse Resp B/P (MAP) Pulse Ox O2 Delivery O2 Flow Rate FiO2 10/05/24 08:24 97.7 61 14 99/62 (74) 93 97.7 10/05/24 08:00 Room Air* 0 21 Intake/Output Intake and Output 10/05/24 07:00 Intake Total 200 ml Output Total 2 ml Balance 198 ml Intake Oral 0 ml IV Total 200 ml Output Urine Total 2 ml # Voids 1 # Bowel Movements 1 Exam GEN: Healthy appearing, well-developed, NAD. HEENT: NC/AT; MMM. CV: RRR, no m/r/g. LUNGS: CTAB, no w/r/c. ABD: Abdominal binder present, abdominal incisions dressing is CDI, bowel sounds hypoactive, abdomen mildly tender right lower quadrant, NG tube inserted with green-yellow output,. EXT: skin Warm, well perfused. no rashes. No clubbing, cyanosis, or edema. NEURO: Ambulating with no limitations. No focal deficits. Medications Current Medications Medications Dose Ordered Sig/Mulu Route Start Time Stop Time Status Last Admin Dose Admin Morphine Sulfate 2 mg Q30M PRN IV 09/28/24 22:30 Nitroglycerin 0.4 mg Q5MINP PRN SL 09/28/24 22:30 Apixaban 2.5 mg BID PO 10/01/24 10:00 10/03/24 12:12 2.5 MG Acetaminophen/ Hydrocodone Bitart 1 tab Q4HP PRN PO 10/02/24 15:45 10/03/24 05:32 1 TAB Pantoprazole Sodium 40 mg DAILY IV 10/03/24 10:00 10/04/24 09:26 40 MG Dextrose 1,000 ml @ 75 mls/hr [id number] IV 10/03/24 12:30 10/05/24 02:27 75 MLS/HR Morphine Sulfate 2 mg Q4HPRN PRN IV 10/04/24 00:15 10/04/24 00:40 2 MG Ondansetron HCl 4 mg Q4HPRN PRN IV 10/04/24 00:15 10/04/24 09:26 4 MG Ciprofloxacin 200 ml @ 200 mls/hr Q8HR IV 10/04/24 22:00 Hold Metronidazole 100 ml @ 100 mls/hr Q8HR IV 10/04/24 22:00 10/05/24 06:00 100 MLS/HR Hydromorphone HCl 0.25 mg Q4HPRN PRN IV 10/04/24 19:15 Enoxaparin Sodium 110 mg Q12HR SC 10/05/24 10:00 UNV Ketorolac Tromethamine 15 mg Q6HPRN PRN IV 10/05/24 10:00 10/10/24 09:59 Baclofen 10 mg DAILY PO 10/05/24 10:00 UNV Ceftriaxone Sodium 50 ml @ 100 mls/hr DAILY@09 IV 10/06/24 09:00 UNV Diphenhydramine HCl 25 mg Q4HP PRN IV 10/05/24 10:00 UNV Laboratory Results Laboratory Tests 10/04/24 10:10 10/05/24 05:22 Urinalysis Test 10/02/24 03:45 Urine Color Yellow (Yellow) Urine Clarity Clear (Clear) Urine pH 6.0 (5.0-9.0) Urine Specific [place] 1.032 (1.001-1.035) Urine Protein Trace (Negative) H Urine Ketones Trace (Negative) Urine Blood Negative /uL (Negative) Urine Nitrite Negative (Negative) Urine Bilirubin Negative (Negative) Urine Urobilinogen Normal mg/dL (Negative) Urine Leukocyte Esterase Trace /uL (Negative) Urine RBC 1 /hpf (0 - 3) Urine Microscopic WBC 1 /HPF (0-3) Urine Squamous Epithelial Cells Few /hpf (<5) Urine Bacteria None seen /hpf (None Seen) Urine Mucus Few (None Seen) Urine Glucose Normal mg/dL (Normal) Labs and/or images reviewed: Labs reviewed by me, Image(s) reviewed by me Assessment/Plan Assessment/Plan 10/05 showed me some absent bowel sounds this morning but not complaining of any abdominal pain. No bowel movement but is passing some gas. Patient was NPO. Complaining of back pain from lying in bed. Patient was ambulating, but has history of DVT and Eliquis is being held because of NPO. We will start full- dose Lovenox and continue ambulation. Patient abdominal binder is bothering him, notified to use abdominal binder when ambulating. We will try some a.m. p.o. meds for morning only and hold off suction by NG during that time.. Today plan we will start full-dose Lovenox continue ambulation, trial IV ceftriaxone with p.r.n. Benadryl if hives breaks out, Toradol IV 15 p.r.n. for severe pain, baclofen a.m. and out of bed in chair during the. Surgery to continue following. For antibiotics continue Flagyl, with trial of ceftriaxone (we will not do Cipro because QTC is 490). Acute appendicitis with abscess, status post laparoscopic appendectomy Acute abdominal pain, resolving Intractable nausea and vomiting, resolving Postop bowel obstruction, expected course - NPO NG tube to intermittent suction Surgery following iv ctx/flagyl (IV prn Benadryl if reaction occurs to cephalosporins) IV Toradol for severe pain Baclofen a.m. daily Encourage ambulation out of bed but use abdominal binder Full-dose Lovenox, hold off Eliquis Diet NPO DVT prophylaxis Lovenox GI prophylaxis Protonix Med tele Full code Plan discussed with: Patient My Orders Orders - FERNANDEZ LEUNG MD Procedure Category Date Status Time Chest Xray 1 View XY 10/04/24 Resulted 11:50 Chest Xray 1 View XY 10/04/24 Resulted 14:38 Ciprofloxacin PHA 10/04/24 In Process 400mg/200ml (Cipro Iv) 22:00 Metronidazole PHA 10/04/24 In Process 500mg/100ml (Flagyl 22:00 Npo (Nothing By DIET 10/05/24 Transmitted Mouth) Diet Breakfast Enoxaparin Sodium PHA 10/05/24 Logged (Lovenox) 10:00 Ketorolac Injection PHA 10/05/24 In Process (Toradol Injection) 10:00 Baclofen Tablet PHA 10/05/24 In Process (Liorisal Tablet) 10:00 Ceftriaxone 1gm/50ml PHA 10/06/24 Logged D5w (Rocephin) 09:00 Diphenhdramine PHA 10/05/24 Logged Injection (Benadryl 10:00 Date of Service: Oct 05, 2024 Billing Provider: FERNANDEZ LEUNG MD Common Visit Codes: [id number] INP/OBS CARE(HIGH) FERNANDEZ LEUNG MD Oct 05, 2024 10:54
[2024-10-05] MEDS: ENOXAPARIN SOD 120 MG/0.8 ML SYRINGE SC SCH (11:11)
[2024-10-05] MEDS: cefTRIAXone 1GM/50ML D5W 50 ML IV ONE (11:11)
[2024-10-05] MEDS: KETOROLAC TROMETH 30 MG/ML 1ML VIAL IV PRN (11:22)
--- NOTE | 2024-10-05 12:02 | DVHPN2 ---
Progress Note - Dictate Date Seen: Oct 05, 2024 Medical Necessity Reason Pt with a Central, PICC or Fol: No Subjective PT WITH ABD PAIN ACUTE APPENDICITIS S/P APPENDECTOMY ECHO EF >55% vital signs Vital Sign Date Time Temp Pulse Resp B/P (MAP) Pulse Ox O2 Delivery O2 Flow Rate FiO2 10/05/24 08:24 97.7 61 14 99/62 (74) 93 97.7 10/05/24 08:00 Room Air* 0 21 Total Intake and Output 10/04/24 10/04/24 10/05/24 14:59 22:59 06:59 Intake Total 100 ml 0 ml Output Total 2 ml Balance 98 ml 0 ml medications Current Medications Medications Dose Ordered Sig/Mulu Route Start Time Stop Time Status Last Admin Dose Admin Morphine Sulfate 2 mg Q30M PRN IV 09/28/24 22:30 Nitroglycerin 0.4 mg Q5MINP PRN SL 09/28/24 22:30 Apixaban 2.5 mg BID PO 10/01/24 10:00 10/03/24 12:12 2.5 MG Acetaminophen/ Hydrocodone Bitart 1 tab Q4HP PRN PO 10/02/24 15:45 10/03/24 05:32 1 TAB Pantoprazole Sodium 40 mg DAILY IV 10/03/24 10:00 10/05/24 11:10 40 MG Dextrose 1,000 ml @ 75 mls/hr [id number] IV 10/03/24 12:30 10/05/24 02:27 75 MLS/HR Morphine Sulfate 2 mg Q4HPRN PRN IV 10/04/24 00:15 10/04/24 00:40 2 MG Ondansetron HCl 4 mg Q4HPRN PRN IV 10/04/24 00:15 10/04/24 09:26 4 MG Metronidazole 100 ml @ 100 mls/hr Q8HR IV 10/04/24 22:00 10/05/24 06:00 100 MLS/HR Hydromorphone HCl 0.25 mg Q4HPRN PRN IV 10/04/24 19:15 Enoxaparin Sodium 110 mg Q12HR SC 10/05/24 10:00 10/05/24 11:11 110 MG Ketorolac Tromethamine 15 mg Q6HPRN PRN IV 10/05/24 10:00 10/10/24 09:59 10/05/24 11:22 15 MG Baclofen 10 mg DAILY PO 10/05/24 10:00 Ceftriaxone Sodium 50 ml @ 100 mls/hr DAILY@09 IV 10/06/24 09:00 Diphenhydramine HCl 25 mg Q4HP PRN IV 10/05/24 10:00 laboratory and microbiology Laboratory Tests 10/05/24 05:22 10/04/24 10:10 Test 10/04/24 10:10 Range/Units Serum Glucose 153 H 74-106 mg/dL Problem List ABD PAIN ACUTE APPENDICITIS S/P APPENDECTOMY ECHO EF >55% HX OF DVT HX OF PE Assessment/Plan MONITOR LABS PT DVT PROPHYLAXIS ATELECTASIS ILEUS BY CT PT NPO FOR NOW EVEN THOUGH PT WITH BS AND BM check kub Dietary Evaluation Review Recommendations by RD: Protein Supplementation Comments: 1) Advance to 2gm Na diet as medically feasible 2) Continue current plan of care Expected Outcomes/Goals: to meet at least 75% estimated needs within 7 days FU 2-3 days Plan discussed with: Patient ANSLEY OKEEFE MD Oct 05, 2024 12:02
--- NOTE | 2024-10-05 14:20 | DVH ---
Date: 10/05/2024 01:43 PM Examination: XY KUB ABDOMEN SINGLE VIEW History: sbo Comparison: None TECHNIQUE: Frontal views of the abdomen was obtained. FINDINGS: Diffusely dilated loops of small bowel. The lung bases are unremarkable. No acute osseous abnormality identified. IMPRESSION: Diffusely dilated loops of small bowel.
[2024-10-06] VITALS (9 sets, daily range): BP systolic 100–131; BP diastolic 56–82; PULSE 62–90; RESP 14–22; TEMP 97.4–98.3; O2SAT 94–98
--- NOTE | 2024-10-06 06:59 | DVH ---
EXAM: XR Chest, 1 View CLINICAL INDICATION: NG TUBE PLACEMENT VERIFICATION TECHNIQUE: Frontal view of the chest. COMPARISON: XY CHEST XRAY 1 VIEW on DOS: 10/04/24, XY CHEST XRAY 1 VIEW on DOS: 10/04/24, XY CHEST XR AY 1 VIEW on DOS: 10/03/24, XY CHEST XRAY 1 VIEW on DOS: 10/03/24, CHEST PORTABLE on DOS: 12/17/20 FINDINGS: LUNGS AND PLEURAL SPACES: Unremarkable. No consolidation. No pneumothorax. HEART: Unremarkable. No cardiomegaly. MEDIASTINUM: Unremarkable. Normal mediastinal contour. BONES/JOINTS: Unremarkable. No acute fracture. TUBES, LINES AND DEVICES: Multiple wires overlie the chest. Underpenetrated study. NG tube not cl early visualized. OTHER FINDINGS: . IMPRESSION: Multiple wires overlie the chest. Underpenetrated study. NG tube not clearly visualized.
[2024-10-06 07:34] LABS: Albumin 3.8 g/dL (3.2-4.8); Alkaline Phosphatase 78 U/L (46-116); Anion Gap 10 (5-15); BUN/Creatinine Ratio 17.4 (10.0-20.0); Calcium 8.9 mg/dL (8.7-10.4); Carbon Dioxide 24 mmol/L (20-31); Chloride 103 mmol/L (98-107); Sodium 137 mmol/L (136-145)
[2024-10-06 07:35] LABS: Bilirubin, Total 0.5 mg/dL (0.2-1.0)
[2024-10-06 07:45] LABS: Alanine Aminotransferase 73 U/L (7-40); Aspartate Aminotransferase 48 U/L (13-40); Blood Urea Nitrogen 24 mg/dL (9-23); Glucose 121 mg/dL (74-106); Potassium 3.2 mmol/L (3.5-5.1)
[2024-10-06] MEDS: cefTRIAXone 1GM/50ML D5W 50 ML IV SCH (08:10)
[2024-10-06] MEDS ORDERED: GASTROGRAFIN 120 ML SOL ONE (10:10)
[2024-10-06] MEDS: D5W/SOD CHL 0.45%/KCL 20MEQ 1,000 ML IV ONE (10:47)
--- NOTE | 2024-10-06 12:50 | DVHPN2 ---
Progress Note - Dictate Date Seen: Oct 06, 2024 Medical Necessity Reason Pt with a Central, PICC or Fol: No Subjective PT WITH ABD PAIN ACUTE APPENDICITIS S/P APPENDECTOMY ECHO EF >55% vital signs Vital Sign Date Time Temp Pulse Resp B/P (MAP) Pulse Ox O2 Delivery O2 Flow Rate FiO2 10/06/24 12:20 97.4 73 19 110/65 (80) 94 97.4 10/06/24 07:44 Room Air* 0 21 Total Intake and Output 10/05/24 10/05/24 10/06/24 15:00 23:00 07:00 Intake Total 150 ml 100 ml 100 ml Output Total 400 ml 500 ml 200 ml Balance -250 ml -400 ml -100 ml medications Current Medications Medications Dose Ordered Sig/Mulu Route Start Time Stop Time Status Last Admin Dose Admin Morphine Sulfate 2 mg Q30M PRN IV 09/28/24 22:30 Nitroglycerin 0.4 mg Q5MINP PRN SL 09/28/24 22:30 Acetaminophen/ Hydrocodone Bitart 1 tab Q4HP PRN PO 10/02/24 15:45 10/03/24 05:32 1 TAB Pantoprazole Sodium 40 mg DAILY IV 10/03/24 10:00 10/06/24 12:11 40 MG Morphine Sulfate 2 mg Q4HPRN PRN IV 10/04/24 00:15 10/06/24 05:17 2 MG Ondansetron HCl 4 mg Q4HPRN PRN IV 10/04/24 00:15 10/06/24 05:26 4 MG Metronidazole 100 ml @ 100 mls/hr Q8HR IV 10/04/24 22:00 10/06/24 05:21 100 MLS/HR Hydromorphone HCl 0.25 mg Q4HPRN PRN IV 10/04/24 19:15 Enoxaparin Sodium 110 mg Q12HR SC 10/05/24 10:00 10/06/24 10:47 110 MG Ketorolac Tromethamine 15 mg Q6HPRN PRN IV 10/05/24 10:00 10/10/24 09:59 10/05/24 11:22 15 MG Baclofen 10 mg DAILY PO 10/05/24 10:00 10/06/24 10:47 10 MG Ceftriaxone Sodium 50 ml @ 100 mls/hr DAILY@09 IV 10/06/24 09:00 10/06/24 08:10 100 MLS/HR Diphenhydramine HCl 25 mg Q4HP PRN IV 10/05/24 10:00 laboratory and microbiology Laboratory Tests 10/06/24 05:54 10/05/24 05:22 Test 10/06/24 05:54 Range/Units Serum Glucose 121 H 74-106 mg/dL Problem List ABD PAIN ACUTE APPENDICITIS S/P APPENDECTOMY ECHO EF >55% HX OF DVT HX OF PE Assessment/Plan MONITOR LABS PT DVT PROPHYLAXIS ATELECTASIS ILEUS BY CT PT NPO FOR NOW EVEN THOUGH PT WITH BS AND BM check kub DILATED SB C/W WITH SBO GASTROGRAFIN ENEMA Dietary Evaluation Review Recommendations by RD: Protein Supplementation Comments: 1) Advance to 2gm Na diet as medically feasible 2) Continue current plan of care Expected Outcomes/Goals: to meet at least 75% estimated needs within 7 days FU 2-3 days Plan discussed with: Patient, Spouse ANSLEY OKEEFE MD Oct 06, 2024 12:50
--- NOTE | 2024-10-06 17:18 | DVHPN2 ---
Subjective Update 10/06 10/04 patient is status post lap appendectomy, surgery following. We will start antibiotics today. Patient yesterday had p.o. intolerance with nausea and vomiting after trying clear liquid diet. CT was done which showed possible small bowel obstruction in the right lower quadrant. Patient was made NPO and NG tube was inserted and put on intermittent suction. Surgery following labs pending patient feeling improved remains NPO, ambulating, having BM/gas. 10/05 showed me some absent bowel sounds this morning but not complaining of any abdominal pain. No bowel movement but is passing some gas. Patient was NPO. Complaining of back pain from lying in bed. Patient was ambulating, but has history of DVT and Eliquis is being held because of NPO. We will start full- dose Lovenox and continue ambulation. Patient abdominal binder is bothering him, notified to use abdominal binder when ambulating. We will try some a.m. p.o. meds for morning only and hold off suction by NG during that time.. Today plan we will start full-dose Lovenox continue ambulation, trial IV ceftriaxone with p.r.n. Benadryl if hives breaks out, Toradol IV 15 p.r.n. for severe pain, baclofen a.m. and out of bed in chair during the. Surgery to continue following. For antibiotics continue Flagyl, with trial of ceftriaxone (we will not do Cipro because QTC is 490). 10/06 patient had NG tube that was not secure and fell out twice overnight, patient was very agitated and irritable. Along with his he is also irritable agitated. They are verbally abusive to staff. Surgery is following Gastrografin today failed. Surgery Dr. Bowen taking over case. NG tube to be inserted back on intermittent low suction we will start PPN, continue Protonix daily. Reviewed: H&P General: Per HPI Objective Vitals Vital Signs Date Time Temp Pulse Resp B/P (MAP) Pulse Ox O2 Delivery O2 Flow Rate FiO2 10/06/24 12:20 97.4 73 19 110/65 (80) 94 97.4 10/06/24 07:44 Room Air* 0 21 Intake/Output Intake and Output 10/06/24 07:00 Intake Total 350 ml Output Total 1100 ml Balance -750 ml IV Total 350 ml Gastric Drainage Total 1100 ml # Voids 4 # Bowel Movements 1 Exam GEN: Healthy appearing, well-developed, NAD. HEENT: NC/AT; MMM. CV: RRR, no m/r/g. LUNGS: CTAB, no w/r/c. ABD: Abdominal binder present, abdominal incisions dressing is CDI, bowel sounds hypoactive, abdomen mildly tender right lower quadrant, NG tube inserted with green-yellow output,. EXT: skin Warm, well perfused. no rashes. No clubbing, cyanosis, or edema. NEURO: Ambulating with no limitations. No focal deficits. Medications Current Medications Medications Dose Ordered Sig/Mulu Route Start Time Stop Time Status Last Admin Dose Admin Morphine Sulfate 2 mg Q30M PRN IV 09/28/24 22:30 Nitroglycerin 0.4 mg Q5MINP PRN SL 09/28/24 22:30 Acetaminophen/ Hydrocodone Bitart 1 tab Q4HP PRN PO 10/02/24 15:45 10/03/24 05:32 1 TAB Pantoprazole Sodium 40 mg DAILY IV 10/03/24 10:00 10/06/24 12:11 40 MG Morphine Sulfate 2 mg Q4HPRN PRN IV 10/04/24 00:15 10/06/24 05:17 2 MG Ondansetron HCl 4 mg Q4HPRN PRN IV 10/04/24 00:15 10/06/24 05:26 4 MG Metronidazole 100 ml @ 100 mls/hr Q8HR IV 10/04/24 22:00 10/06/24 13:03 100 MLS/HR Hydromorphone HCl 0.25 mg Q4HPRN PRN IV 10/04/24 19:15 Enoxaparin Sodium 110 mg Q12HR SC 10/05/24 10:00 10/06/24 10:47 110 MG Ketorolac Tromethamine 15 mg Q6HPRN PRN IV 10/05/24 10:00 10/10/24 09:59 10/05/24 11:22 15 MG Baclofen 10 mg DAILY PO 10/05/24 10:00 10/06/24 10:47 10 MG Ceftriaxone Sodium 50 ml @ 100 mls/hr DAILY@09 IV 10/06/24 09:00 10/06/24 08:10 100 MLS/HR Diphenhydramine HCl 25 mg Q4HP PRN IV 10/05/24 10:00 Laboratory Results Laboratory Tests 10/05/24 05:22 10/06/24 05:54 Chemistry Test 10/06/24 05:54 Albumin 3.8 g/dL (3.2-4.8) Calcium Level 8.9 mg/dL (8.7-10.4) Total Protein 6.0 g/dL (5.7-8.2) LFT Test 10/06/24 05:54 Alanine Aminotransferase (ALT) 73 U/L (7-40) H Alkaline Phosphatase 78 U/L (46-116) Aspartate Amino Transferase (AST) 48 U/L (13-40) H Total Bilirubin 0.5 mg/dL (0.2-1.0) Urinalysis Test 10/02/24 03:45 Urine Color Yellow (Yellow) Urine Clarity Clear (Clear) Urine pH 6.0 (5.0-9.0) Urine Specific [place] 1.032 (1.001-1.035) Urine Protein Trace (Negative) H Urine Ketones Trace (Negative) Urine Blood Negative /uL (Negative) Urine Nitrite Negative (Negative) Urine Bilirubin Negative (Negative) Urine Urobilinogen Normal mg/dL (Negative) Urine Leukocyte Esterase Trace /uL (Negative) Urine RBC 1 /hpf (0 - 3) Urine Microscopic WBC 1 /HPF (0-3) Urine Squamous Epithelial Cells Few /hpf (<5) Urine Bacteria None seen /hpf (None Seen) Urine Mucus Few (None Seen) Urine Glucose Normal mg/dL (Normal) Labs and/or images reviewed: Labs reviewed by me, Image(s) reviewed by me Assessment/Plan Assessment/Plan 10/06 patient had NG tube that was not secure and fell out twice overnight, patient was very agitated and irritable. Along with his he is also irritable agitated. They are verbally abusive to staff. Surgery is following Gastrografin today failed. Surgery Dr. Bowen taking over case. NG tube to be inserted back on intermittent low suction we will start PPN, continue Protonix daily. Acute appendicitis with abscess, status post laparoscopic appendectomy Acute abdominal pain, resolving Intractable nausea and vomiting, resolving Postop bowel obstruction, expected course - GGF bowel series 10/06 failed. patient has emesis. NG tube reinsert 10/06. - NPO -NG tube to intermittent suction -Surgery following -iv ctx/flagyl (IV prn Benadryl if reaction occurs to cephalosporins) -IV Toradol for severe pain -Baclofen a.m. daily -Encourage ambulation out of bed but use abdominal binder -Full-dose Lovenox, hold off Eliquis Diet NPO DVT prophylaxis Lovenox GI prophylaxis Protonix Med tele Full code Plan discussed with: Patient My Orders Orders - FERNANDEZ LEUNG MD Procedure Category Date Status Time Chest Xray 1 View XY 10/06/24 Resulted 06:09 D5w/Sod Chl 0.45%/Kcl PHA 10/06/24 In Process 20meq 09:30 * Surgical Consult CONS 10/06/24 Transmitted Date of Service: Oct 06, 2024 Billing Provider: FERNANDEZ LEUNG MD Common Visit Codes: [id number] INP/OBS CARE(HIGH) FERNANDEZ LEUNG MD Oct 06, 2024 17:18
[2024-10-06] MEDS ORDERED: PPN PER PHARMACY 0 ML IV SCH (17:30)
[2024-10-06] MEDS ORDERED: DEXTROSE (50%) 50ML SYRG IV SCH (17:45)
[2024-10-06] MEDS: InsuLIN REG 1unit/0.01ml Soln (100units/ml) SC SCH (17:59)
[2024-10-06] MEDS: ACCU-CHEK COMFORT CURVE STRIP VI SCH (17:59)
[2024-10-06 18:17] LABS: Magnesium 2.3 mg/dL (1.6-2.6)
[2024-10-06 18:19] LABS: Phosphorus 3.4 mg/dL (2.4-5.1)
--- NOTE | 2024-10-06 18:39 | DVH ---
Procedure: XY SMALL BOWEL SERIES-W GASTROGRA Reason for study/Clinical History: Doctor's request Comparison Study: None available at time of dictation. Technique: Single contrast small bowel series performed. FINDINGS/IMPRESSION: Initial chief librarian extension department view of the abdomen and pelvis appears demonstrates no acute process. Contrast is not identified within the colon by 6 hours. This represents a delay in transit time. Obs truction is not excluded.
--- NOTE | 2024-10-06 18:55 | DVH ---
CHEST RADIOGRAPH Indication: NG tube placement Technique: Single frontal view of the chest was obtained Comparison: XY CHEST XRAY 1 VIEW on DOS: 10/06/24, XY CHEST XRAY 1 VIEW on DOS: 10/04/24, XY CHEST XRAY 1 VIEW on DOS: 10/04/24, XY CHEST XRAY 1 VIEW on DOS: 10/03/24, XY CHEST XRAY 1 VIEW on DOS: 10/03/24 FINDINGS: Lines and Tubes: None Lungs: No focal consolidation. Pleura: No effusion. No pneumothorax. Cardiomediastinal contours: Unremarkable Bones: No acute osseous abnormality. IMPRESSION: No acute cardiopulmonary disease. NG tube tip in the stomach.
[2024-10-06] MEDS: AMINO ACID INFUSION IN D10W 1,000 ML IV ONE (22:41)
[2024-10-07] VITALS (9 sets, daily range): BP systolic 105–127; BP diastolic 71–77; PULSE 59–71; RESP 18–19; TEMP 97.7–98.6; O2SAT 92–96
[2024-10-07 08:05] LABS: Basophils # (auto) 0.1 10 ^3/uL (0-0.2); Basophils % (auto) 1.2 % (0.0-2.0); Eosinophils # (auto) 0.1 10 ^3/uL (0-0.8); Hemoglobin 13.2 g/dL (13.5-17.5); Lymphocytes # (auto) 1.5 10 ^3/uL (0.4-5.4); Lymphocytes % (auto) 15.6 % (10.0-50.0); Mean Corpuscular Hemoglobin 31.4 pg (28.0-32.0); Mean Corpuscular Hgb Conc. 32.1 g/dL (32.0-36.0); Mean Corpuscular Volume 97.8 fL (80.0-100.0); Monocytes # (auto) 0.8 10 ^3/uL (0-1.3); Neutrophils # (auto) 7.4 10 ^3/uL (1.6-8.6); Neutrophils % (auto) 74.2 % (37.0-80.0); Platelet Count (auto) 339 10^3/uL (140-450); Red Blood Cells 4.19 10^6/uL (4.5-5.90); Red Cell Distribution Width 14.2 % (11.8-14.3); White Blood Cell 9.9 10^3/uL (4.4-10.8)
--- NOTE | 2024-10-07 08:12 | DVHPN2 ---
Progress Note - Dictate Date Seen: Oct 07, 2024 Medical Necessity Reason Pt with a Central, PICC or Fol: No Subjective PT WITH ABD PAIN ACUTE APPENDICITIS S/P APPENDECTOMY ECHO EF >55% vital signs Vital Sign Date Time Temp Pulse Resp B/P (MAP) Pulse Ox O2 Delivery O2 Flow Rate FiO2 10/07/24 05:00 97.7 65 18 114/74 (87) 96 97.7 10/06/24 20:00 Room Air* 0 21 Total Intake and Output 10/06/24 10/06/24 10/07/24 15:00 23:00 07:00 Intake Total 50 ml 0 ml Output Total 800 ml 500 ml Balance 50 ml -800 ml -500 ml medications Current Medications Medications Dose Ordered Sig/Mulu Route Start Time Stop Time Status Last Admin Dose Admin Morphine Sulfate 2 mg Q30M PRN IV 09/28/24 22:30 Nitroglycerin 0.4 mg Q5MINP PRN SL 09/28/24 22:30 Acetaminophen/ Hydrocodone Bitart 1 tab Q4HP PRN PO 10/02/24 15:45 10/03/24 05:32 1 TAB Pantoprazole Sodium 40 mg DAILY IV 10/03/24 10:00 10/06/24 12:11 40 MG Morphine Sulfate 2 mg Q4HPRN PRN IV 10/04/24 00:15 10/06/24 05:17 2 MG Ondansetron HCl 4 mg Q4HPRN PRN IV 10/04/24 00:15 10/06/24 05:26 4 MG Metronidazole 100 ml @ 100 mls/hr Q8HR IV 10/04/24 22:00 10/07/24 05:26 100 MLS/HR Hydromorphone HCl 0.25 mg Q4HPRN PRN IV 10/04/24 19:15 Enoxaparin Sodium 110 mg Q12HR SC 10/05/24 10:00 10/06/24 22:28 110 MG Ketorolac Tromethamine 15 mg Q6HPRN PRN IV 10/05/24 10:00 10/10/24 09:59 10/05/24 11:22 15 MG Baclofen 10 mg DAILY PO 10/05/24 10:00 10/06/24 10:47 10 MG Ceftriaxone Sodium 50 ml @ 100 mls/hr DAILY@09 IV 10/06/24 09:00 10/06/24 08:10 100 MLS/HR Diphenhydramine HCl 25 mg Q4HP PRN IV 10/05/24 10:00 Amino Acids 0 ml @ 0 mls/hr PER PHARMACY IV 10/06/24 17:30 Diagnostic Test (Pha) 1 strip Q6HR 10/06/24 18:00 10/07/24 05:37 1 STRIP Insulin Human Regular FOLLOW SLIDING SCALE Q6HR SC 10/06/24 18:00 10/07/24 05:33 2 UNITS Dextrose 50 ml UD IV 10/06/24 17:45 laboratory and microbiology Test 10/07/24 05:53 Range/Units Serum Glucose Pending Problem List ABD PAIN ACUTE APPENDICITIS S/P APPENDECTOMY ECHO EF >55% HX OF DVT HX OF PE Assessment/Plan MONITOR LABS PT DVT PROPHYLAXIS ATELECTASIS ILEUS BY CT PT NPO FOR NOW EVEN THOUGH PT WITH BS AND BM check kub DILATED SB C/W WITH SBO GASTROGRAFIN ENEMA INTERPRETATION OF SMALL BOWEL SERIES CONFUSING ? OBSTRUCTION CONT NG TO INTERMITTENT SUCTION Dietary Evaluation Review Recommendations by RD: Protein Supplementation Comments: 1) Advance to 2gm Na diet as medically feasible 2) Continue current plan of care Expected Outcomes/Goals: to meet at least 75% estimated needs within 7 days FU 2-3 days Plan discussed with: Patient, Spouse ANSLEY OKEEFE MD Oct 07, 2024 08:12
--- NOTE | 2024-10-07 09:58 | DVHPN2 ---
Subjective Update 10/07 10/04 patient is status post lap appendectomy, surgery following. We will start antibiotics today. Patient yesterday had p.o. intolerance with nausea and vomiting after trying clear liquid diet. CT was done which showed possible small bowel obstruction in the right lower quadrant. Patient was made NPO and NG tube was inserted and put on intermittent suction. Surgery following labs pending patient feeling improved remains NPO, ambulating, having BM/gas. 10/05 showed me some absent bowel sounds this morning but not complaining of any abdominal pain. No bowel movement but is passing some gas. Patient was NPO. Complaining of back pain from lying in bed. Patient was ambulating, but has history of DVT and Eliquis is being held because of NPO. We will start full- dose Lovenox and continue ambulation. Patient abdominal binder is bothering him, notified to use abdominal binder when ambulating. We will try some a.m. p.o. meds for morning only and hold off suction by NG during that time.. Today plan we will start full-dose Lovenox continue ambulation, trial IV ceftriaxone with p.r.n. Benadryl if hives breaks out, Toradol IV 15 p.r.n. for severe pain, baclofen a.m. and out of bed in chair during the. Surgery to continue following. For antibiotics continue Flagyl, with trial of ceftriaxone (we will not do Cipro because QTC is 490). 10/06 patient had NG tube that was not secure and fell out twice overnight, patient was very agitated and irritable. Along with his he is also irritable agitated. They are verbally abusive to staff. Surgery is following Gastrografin today failed. Surgery Dr. Bowen taking over case. NG tube to be inserted back on intermittent low suction we will start PPN, continue Protonix daily. 10/07-patient and family more consulted. Fail to Gastrografin yesterday. We will ileus versus SBO possible. Surgery team transfer from to be Dr. Lynne to Dr. Gann. NG tube will reinserted yesterday. Started a PPN Clinimix yesterday low. Patient tolerating antibiotics and PPN well. Today bowel sounds absent. Vitals stable. Holding Lovenox the patient NPO for surgery follow up. We will get a KUB today. Reviewed: H&P Changes from previous H/P or p: No Changes General: Per HPI Objective Vitals Vital Signs Date Time Temp Pulse Resp B/P (MAP) Pulse Ox O2 Delivery O2 Flow Rate FiO2 10/07/24 05:00 97.7 65 18 114/74 (87) 96 97.7 10/06/24 20:00 Room Air* 0 21 Intake/Output Intake and Output 10/07/24 07:00 Intake Total 50 ml Output Total 1300 ml Balance -1250 ml Intake Oral 0 ml IV Total 50 ml Emesis 1300 ml # Voids 2 # Bowel Movements 1 Exam GEN: Healthy appearing, well-developed, NAD. HEENT: NC/AT; MMM. CV: RRR, no m/r/g. LUNGS: CTAB, no w/r/c. ABD: Abdominal binder present, abdominal incisions dressing is CDI, bowel sounds hypoactive, abdomen mildly tender right lower quadrant, NG tube inserted with green-yellow output,. EXT: skin Warm, well perfused. no rashes. No clubbing, cyanosis, or edema. NEURO: Ambulating with no limitations. No focal deficits. Medications Current Medications Medications Dose Ordered Sig/Mulu Route Start Time Stop Time Status Last Admin Dose Admin Morphine Sulfate 2 mg Q30M PRN IV 09/28/24 22:30 Nitroglycerin 0.4 mg Q5MINP PRN SL 09/28/24 22:30 Acetaminophen/ Hydrocodone Bitart 1 tab Q4HP PRN PO 10/02/24 15:45 10/03/24 05:32 1 TAB Pantoprazole Sodium 40 mg DAILY IV 10/03/24 10:00 10/07/24 09:30 40 MG Morphine Sulfate 2 mg Q4HPRN PRN IV 10/04/24 00:15 10/06/24 05:17 2 MG Ondansetron HCl 4 mg Q4HPRN PRN IV 10/04/24 00:15 10/06/24 05:26 4 MG Metronidazole 100 ml @ 100 mls/hr Q8HR IV 10/04/24 22:00 10/07/24 05:26 100 MLS/HR Hydromorphone HCl 0.25 mg Q4HPRN PRN IV 10/04/24 19:15 Enoxaparin Sodium 110 mg Q12HR SC 10/05/24 10:00 10/06/24 22:28 110 MG Ketorolac Tromethamine 15 mg Q6HPRN PRN IV 10/05/24 10:00 10/10/24 09:59 10/05/24 11:22 15 MG Baclofen 10 mg DAILY PO 10/05/24 10:00 10/07/24 09:30 10 MG Ceftriaxone Sodium 50 ml @ 100 mls/hr DAILY@09 IV 10/06/24 09:00 10/07/24 09:29 100 MLS/HR Diphenhydramine HCl 25 mg Q4HP PRN IV 10/05/24 10:00 Amino Acids 0 ml @ 0 mls/hr PER PHARMACY IV 10/06/24 17:30 Diagnostic Test (Pha) 1 strip Q6HR 10/06/24 18:00 10/07/24 05:37 1 STRIP Insulin Human Regular FOLLOW SLIDING SCALE Q6HR SC 10/06/24 18:00 10/07/24 05:33 2 UNITS Dextrose 50 ml UD IV 10/06/24 17:45 Laboratory Results Laboratory Tests 10/07/24 05:53 Chemistry Test 10/07/24 09:30 Albumin Pending Calcium Level Pending Magnesium Level Pending Phosphorus Level Pending Total Protein Pending Lipid panel Test 10/07/24 09:30 Triglycerides Level Pending LFT Test 10/07/24 09:30 Alanine Aminotransferase (ALT) Pending Alkaline Phosphatase Pending Aspartate Amino Transferase (AST) Pending Total Bilirubin Pending Urinalysis Test 10/02/24 03:45 Urine Color Yellow (Yellow) Urine Clarity Clear (Clear) Urine pH 6.0 (5.0-9.0) Urine Specific [place] 1.032 (1.001-1.035) Urine Protein Trace (Negative) H Urine Ketones Trace (Negative) Urine Blood Negative /uL (Negative) Urine Nitrite Negative (Negative) Urine Bilirubin Negative (Negative) Urine Urobilinogen Normal mg/dL (Negative) Urine Leukocyte Esterase Trace /uL (Negative) Urine RBC 1 /hpf (0 - 3) Urine Microscopic WBC 1 /HPF (0-3) Urine Squamous Epithelial Cells Few /hpf (<5) Urine Bacteria None seen /hpf (None Seen) Urine Mucus Few (None Seen) Urine Glucose Normal mg/dL (Normal) Labs and/or images reviewed: Labs reviewed by me, Image(s) reviewed by me Assessment/Plan Assessment/Plan 10/07-patient and family more consulted. Fail to Gastrografin yesterday. We will ileus versus SBO possible. Surgery team transfer from to be Dr. Lynne to Dr. Gann. NG tube will reinserted yesterday. Started a PPN Clinimix yesterday low. Patient tolerating antibiotics and PPN well. Today bowel sounds absent. Vitals stable. Holding Lovenox the patient NPO for surgery follow up. We will get a KUB today. Acute appendicitis with abscess, status post laparoscopic appendectomy Acute abdominal pain, resolving Intractable nausea and vomiting, resolving Postop bowel obstruction, expected course - GGF bowel series 10/06 failed. patient has emesis. NG tube reinsert 10/06. - NPO - NG tube to intermittent suction - Surgery following - iv ctx/flagyl (IV prn Benadryl if reaction occurs to cephalosporins) - IV Toradol for severe pain - po Baclofen a.m. daily, OOB to chair daily am - Encourage ambulation out of bed but use abdominal binder - Full-dose Lovenox, hold off Eliquis Diet NPO DVT prophylaxis Lovenox full dose GI prophylaxis Protonix Med tele Full code Plan discussed with: Patient My Orders Orders - FERNANDEZ LEUNG MD Procedure Category Date Status Time * Surgical Consult CONS 10/06/24 Transmitted Ppn Per Pharmacy PHA 10/06/24 In Process 17:30 Glucose Blood PHA 10/06/24 In Process (Accu-Chek Comfort 18:00 Insulin R (Human) PHA 10/06/24 In Process (Insulin R) 18:00 Dextrose 50% Syringe PHA 10/06/24 In Process 17:45 Magnesium LAB 10/07/24 In Process 04:00 Phosphorus LAB 10/07/24 In Process 04:00 Triglycerides LAB 10/07/24 In Process 04:00 Ppn Per Pharmacy LINH 10/06/24 In Process 22:00 Amino Acid Infusion PHA 10/06/24 In Process In D10w (Clinimix 4. 22:00 Comprehensive LAB 10/07/24 In Process Metabolic Panel 04:00 Lactated Ringer's PHA 10/07/24 Logged 10:00 Date of Service: Oct 07, 2024 Billing Provider: FERNANDEZ LEUNG MD Common Visit Codes: [id number] INP/OBS CARE(HIGH) FERNANDEZ LEUNG MD Oct 07, 2024 09:58
[2024-10-07 10:10] LABS: Alanine Aminotransferase 64 U/L (7-40); Albumin 4.2 g/dL (3.2-4.8); Alkaline Phosphatase 78 U/L (46-116); Anion Gap 9 (5-15); Aspartate Aminotransferase 30 U/L (13-40); Bilirubin, Total 0.4 mg/dL (0.2-1.0); Blood Urea Nitrogen 18 mg/dL (9-23); Calcium 9.1 mg/dL (8.7-10.4); Carbon Dioxide 25 mmol/L (20-31); Chloride 104 mmol/L (98-107); Glucose 137 mg/dL (74-106); Magnesium 2.4 mg/dL (1.6-2.6); Phosphorus 3.3 mg/dL (2.4-5.1); Potassium 3.2 mmol/L (3.5-5.1); Sodium 138 mmol/L (136-145); Total Protein 6.7 g/dL (5.7-8.2); Triglycerides 180 mg/dL (< 150)
--- NOTE | 2024-10-07 10:31 | DVHPN2 ---
Progress Note Date Seen: Oct 07, 2024 Medical Necessity Reason Pt with a Central, PICC or Fol: No Objective vital signs Vital Sign Date Time Temp Pulse Resp B/P (MAP) Pulse Ox O2 Delivery O2 Flow Rate FiO2 10/07/24 05:00 97.7 65 18 114/74 (87) 96 97.7 10/06/24 20:00 Room Air* 0 21 Total Intake and Output 10/06/24 10/06/24 10/07/24 15:00 23:00 07:00 Intake Total 50 ml 0 ml Output Total 800 ml 500 ml Balance 50 ml -800 ml -500 ml medications Current Medications Medications Dose Ordered Sig/Mulu Route Start Time Stop Time Status Last Admin Dose Admin Morphine Sulfate 2 mg Q30M PRN IV 09/28/24 22:30 Nitroglycerin 0.4 mg Q5MINP PRN SL 09/28/24 22:30 Acetaminophen/ Hydrocodone Bitart 1 tab Q4HP PRN PO 10/02/24 15:45 10/03/24 05:32 1 TAB Pantoprazole Sodium 40 mg DAILY IV 10/03/24 10:00 10/07/24 09:30 40 MG Morphine Sulfate 2 mg Q4HPRN PRN IV 10/04/24 00:15 10/06/24 05:17 2 MG Ondansetron HCl 4 mg Q4HPRN PRN IV 10/04/24 00:15 10/06/24 05:26 4 MG Metronidazole 100 ml @ 100 mls/hr Q8HR IV 10/04/24 22:00 10/07/24 05:26 100 MLS/HR Hydromorphone HCl 0.25 mg Q4HPRN PRN IV 10/04/24 19:15 Enoxaparin Sodium 110 mg Q12HR SC 10/05/24 10:00 10/06/24 22:28 110 MG Ketorolac Tromethamine 15 mg Q6HPRN PRN IV 10/05/24 10:00 10/10/24 09:59 10/05/24 11:22 15 MG Baclofen 10 mg DAILY PO 10/05/24 10:00 10/07/24 09:30 10 MG Ceftriaxone Sodium 50 ml @ 100 mls/hr DAILY@09 IV 10/06/24 09:00 10/07/24 09:29 100 MLS/HR Diphenhydramine HCl 25 mg Q4HP PRN IV 10/05/24 10:00 Amino Acids 0 ml @ 0 mls/hr PER PHARMACY IV 10/06/24 17:30 Diagnostic Test (Pha) 1 strip Q6HR 10/06/24 18:00 10/07/24 05:37 1 STRIP Insulin Human Regular FOLLOW SLIDING SCALE Q6HR SC 10/06/24 18:00 10/07/24 05:33 2 UNITS Dextrose 50 ml UD IV 10/06/24 17:45 laboratory and microbiology Laboratory Tests 10/07/24 09:30 10/07/24 05:53 Test 10/07/24 09:30 Range/Units Serum Glucose 137 H 74-106 mg/dL Problem List/Assessment/Plan Problem List/Assessment/Plan 10/07/24PATIENT HAD APPENDECTOMY FOR RUPTURED APPENDICITIS ,MULTIPLE INTRA ABDOMINAL ABSCESSES NOW WITH NAUSEA AND VOMITING POST OP, GASTROGRAFIN SHOWS DELAYED TRANSIT, EACH TIME NG TUBE DC'D HE HAS VOMITING, WILL ASK FOR UGI ENDOSCOPY, IF NORMAL WILL CONSIDER LAPAROTOMY.. PTS ABDOMEN IS SOFT AND NOT VERY TENDER, WBC NL AND PT AFEBRILE,. ( COVERING FOR DR. Shayna WHITAKER Plan discussed with: Patient, Spouse Dietary Evaluation Review Recommendations by RD: Protein Supplementation Comments: 1) Advance to 2gm Na diet as medically feasible 2) Continue current plan of care Expected Outcomes/Goals: to meet at least 75% estimated needs within 7 days FU 2-3 days TERRELL FIGUEREDO MD Oct 07, 2024 10:31
[2024-10-07] MEDS: LACTATED RINGER'S 1,000 ML IV ONE (11:04)
--- NOTE | 2024-10-07 11:53 | DVH ---
Date: 10/07/2024 10:01 AM Examination: XY KUB ABDOMEN SINGLE VIEW History: ileus vs sbo Comparison: XY KUB ABDOMEN SINGLE VIEW on DOS: 10/05/24 TECHNIQUE: Frontal views of the abdomen was obtained. FINDINGS: Mildly dilated loops of small bowel. Suggestion of contrast in the colon. Enteric tube tip projects o brianna the proximal stomach. The lung bases are unremarkable. No acute osseous abnormality identified. IMPRESSION: Mildly dilated loops of small bowel. Suggestion of contrast in the colon. Enteric tube tip projects o brianna the proximal stomach.
[2024-10-07] MEDS: SODIUM CHL 0.9% 50 ML IV SCH (14:00)
[2024-10-07] MEDS: POTASSIUM CHL 20MEQ/50ML 50 ML IV SCH (16:00)
--- NOTE | 2024-10-07 16:23 | DVH ---
CHEST RADIOGRAPH Indication: NGT PLACEMENT Technique: Single frontal view of the chest was obtained Comparison: XY CHEST XRAY 1 VIEW on DOS: 10/06/24, XY CHEST XRAY 1 VIEW on DOS: 10/06/24, XY CHEST XRAY 1 VIEW on DOS: 10/04/24 FINDINGS: Lines and Tubes: None Lungs: Bibasilar areas of linear atelectasis. Pleura: No effusion. No pneumothorax. Cardiomediastinal contours: Unremarkable Bones: No acute osseous abnormality. IMPRESSION: 1. Enteric tube below the left diaphragm in the stomach. 2. Bibasilar areas of linear atelectasis.
--- NOTE | 2024-10-07 19:39 | DVHINCON2 ---
Date of service: Oct 07, [address] Lopez Reason for Consultation Abdominal distention and inability to past bowel movements and partial bowel obstruction after appendectomy History of Present Illness This 63-year-old male presented to the emergency room with complaints of abdominal pain nausea vomiting and phos found to have acute appendicitis for which he underwent surgery and there was this time surgery there was a ruptured appendix with which was for which she had underwent appendectomy by Dr. Lynne Has been slow to recover with a bowel motility and having problem with nausea vomiting and unable to keep food down had a small-bowel follow-through done which showed that the contrast reaching the colon after 6 hours No no bowel distention or hematemesis or melena patient has no history of any bowel obstruction in the past Past Medical History Hypertension PE and high lipids Past Surgical History Cholecystectomy Family History: Cerebrovascular accident (CVA) G8 MOTHER, Drug abuse G8 BROTHER, FH: cholecystectomy G8 SISTER Malignant melanoma G8 FATHER, Stent G8 FATHER, Family History Unremarkable Social History Denies smoking except for occasional drinking Allergies: Coded Allergies: Ampicillin (Verified Allergy, Unknown, 04/30/23) Cephalexin (Verified Allergy, Unknown, 04/30/23) Erythromycin (Verified Allergy, Unknown, 04/30/23) Penicillins (Verified Allergy, Unknown, 12/17/20) Home Meds Active Scripts Metronidazole (Flagyl) 500 Mg Tab, 1 TAB PO TID, #30 TAB Prov:RONY WASSERMAN MD 09/29/24 Hydrocodone-Acetaminophen (Hydrocodone Bitartrate/AC 5-325 mg) 1 Tab Tab, 1 TAB PO Q6HPRN PRN, #20 TAB Prov:RONY WASSERMAN MD 09/29/24 Reported Medications Olmesartan Medoxomil-Hydrochlo (Benicar Hct) 1 Tab Tab, 1 TAB PO DAILY, #90 TAB 1 Refill 09/29/24 Vortioxetine Hydrobromide (Trintellix) 10 Mg Tab, 10 MG PO, TAB 09/29/24 Semaglutide (Ozempic) 4 Mg/3 Ml Inj, 4 MG SC, INJ 09/29/24 Fenofibrate (FENOFIBRATE) 145 Mg Tab, 1 TAB PO DAILY, #30 TAB 5 Refills 09/29/24 Rosuvastatin Calcium (Rosuvastatin Calcium) 20 Mg Tab, 20 MG PO DAILY, TAB 09/29/24 Rivaroxaban (XARELTO) 20 Mg Tab, 1 TAB PO DAILY, #90 TAB 3 Refills 09/29/24 Current Medications Current Medications Medications (Trade) Dose Ordered Sig/Mulu Route PRN Reason Start Time Stop Time Status Last Admin Fat Emulsion Intravenous 50 ml/ Sodium Acetate 20 meq/Potassium Phosphate 10 meq/ Magnesium Sulfate 4 meq/ Multivitamins 10 ml/Chromium/ Copper/Manganese/ Zinc 1 ml/Amino Acids/Dextrose/ Purified Water 1,224.2727 ml @ 51 mls/hr Q24H1M IV 10/07/24 22:00 10/08/24 21:59 Potassium Chloride 50 ml @ 25 mls/hr Q2H IV 10/07/24 14:00 10/07/24 17:59 DC 10/07/24 16:02 Sodium Chloride 50 ml @ 25 mls/hr Q2H IV 10/07/24 14:00 10/07/24 17:59 DC 10/07/24 14:00 Review of Systems Unremarkable Vital Signs Vital Signs Date Time Temp Pulse Resp B/P (MAP) Pulse Ox O2 Delivery O2 Flow Rate FiO2 10/07/24 17:00 98.0 68 19 116/71 (86) 92 98.0 10/07/24 08:15 Room Air* 0 21 Physical Exam Moderately built and nourished male in no acute distress But uncomfortable for the NG-tube and the abdominal distention HEENT examination no pallor no Neck is supple Lungs are clear Cardiovascular unremarkable Abdomen soft mild distention NG tube is in good place no blood in the NG tube Bowel sounds are hypoactive Extremities no edema Neuro grossly intact Labs/Diagnostic Data Labs Test 10/07/24 18:19 10/07/24 09:30 10/07/24 05:53 10/02/24 03:45 Range/Units POC Glucose 136 H 70-106 mg/dl Sodium Level 138 136-145 mmol/L Potassium Level 3.2 L 3.5-5.1 mmol/L Chloride Level 104 98-107 mmol/L Carbon Dioxide Level 25 20-31 mmol/L Anion Gap 9 5-15 Blood Urea Nitrogen 18 9-23 mg/dL Creatinine 1.20 0.700-1.30 mg/dL Glomerular Filtration Rate Calc 68 >90 mL/min BUN/Creatinine Ratio 15.0 10.0-20.0 Serum Glucose 137 H 74-106 mg/dL Calcium Level 9.1 8.7-10.4 mg/dL Phosphorus Level 3.3 2.4-5.1 mg/dL Magnesium Level 2.4 1.6-2.6 mg/dL Total Bilirubin 0.4 0.2-1.0 mg/dL Aspartate Amino Transferase (AST) 30 13-40 U/L Alanine Aminotransferase (ALT) 64 H 7-40 U/L Alkaline Phosphatase 78 46-116 U/L Total Protein 6.7 5.7-8.2 g/dL Albumin 4.2 3.2-4.8 g/dL Triglycerides Level 180 H < 150 mg/dL White Blood Count 9.9 # 4.4-10.8 10^3/uL Red Blood Count 4.19 L 4.5-5.90 10^6/uL Hemoglobin 13.2 L 13.5-17.5 g/dL Hematocrit 41.0 41.0-53.0 % Mean Corpuscular Volume 97.8 # 80.0-100.0 fL Mean Corpuscular Hemoglobin 31.4 28.0-32.0 pg Mean Corpuscular Hemoglobin Concent 32.1 32.0-36.0 g/dL Red Cell Distribution Width 14.2 11.8-14.3 % Platelet Count 339 140-450 10^3/uL Mean Platelet Volume 8.5 6.9-10.8 fL Neutrophils (%) (Auto) 74.2 37.0-80.0 % Lymphocytes (%) (Auto) 15.6 10.0-50.0 % Monocytes (%) (Auto) 8.0 0.0-12.0 % Eosinophils (%) (Auto) 1.0 0.0-7.0 % Basophils (%) (Auto) 1.2 0.0-2.0 % Neutrophils # (Auto) 7.4 1.6-8.6 10 ^3/uL Lymphocytes # (Auto) 1.5 0.4-5.4 10 ^3/uL Monocytes # (Auto) 0.8 0-1.3 10 ^3/uL Eosinophils # (Auto) 0.1 0-0.8 10 ^3/uL Basophils # (Auto) 0.1 0-0.2 10 ^3/uL Nucleated Red Blood Cells 0.0 % Urine Color Yellow Yellow Urine Clarity Clear Clear Urine pH 6.0 5.0-9.0 Urine Specific [place] 1.032 1.001-1.035 Urine Protein Trace H Negative Urine Ketones Trace Negative Urine Blood Negative Negative /uL Urine Nitrite Negative Negative Urine Bilirubin Negative Negative Urine Urobilinogen Normal Negative mg/dL Urine Leukocyte Esterase Trace Negative /uL Urine RBC 1 0 - 3 /hpf Urine Microscopic WBC 1 0-3 /HPF Urine Squamous Epithelial Cells Few <5 /hpf Urine Bacteria None seen None Seen /hpf Urine Mucus Few None Seen Urine Glucose Normal Normal mg/dL Test 09/28/24 18:26 Range/Units Prothrombin Time 11.8 9.3-11.8 sec Prothrombin Time INR 1.13 0.9-1.15 Activated Partial Thromboplast Time 26.6 24.5-34.5 SEC Lipase 39 12-53 U/L Assessment 63-year-old with complaints of abdominal pain had appendectomy acute appendicitis which was ruptured had surgery for the same and has been having prolonged proper postoperative course with inability to have bowel movements and the motility issues in the small bowel Possibility of anastomotic area edema and partial obstruction most likely which should open up slowly with conservative treatment No evidence of any leakage in the small bowel series Plan/Recommendation will recommend to continue TPN and await the small bowel motility to resume If terms symptoms persist may need to repeat under the small bowel series and even a CT scan if necessary For the time being TPN antibiotics and supportive care Thank you Dr. Garcia Plan discussed with: Patient EDITH GARCIA MD Oct 07, 2024 19:39
[2024-10-07] MEDS: SODIUM ACETATE IV NR (22:09)
[2024-10-07] MEDS: FAT EMULSION IV NR (22:09)
[2024-10-07] MEDS: POTASSIUM PHOSPHATE IV NR (22:09)
[2024-10-07] MEDS: [UNRECOGNIZED DRUG - OTHER] IV NR (22:09)
[2024-10-08] VITALS (7 sets, daily range): BP systolic 106–124; BP diastolic 66–77; PULSE 58–72; RESP 17–18; TEMP 97.6–98.2; O2SAT 93–99
[2024-10-08 06:59] LABS: Albumin 3.8 g/dL (3.2-4.8); Alkaline Phosphatase 83 U/L (46-116); Anion Gap 9 (5-15); Aspartate Aminotransferase 38 U/L (13-40); BUN/Creatinine Ratio 13.6 (10.0-20.0); Blood Urea Nitrogen 17 mg/dL (9-23); Carbon Dioxide 22 mmol/L (20-31); Chloride 106 mmol/L (98-107); Magnesium 2.3 mg/dL (1.6-2.6); Sodium 137 mmol/L (136-145); Total Protein 6.2 g/dL (5.7-8.2)
[2024-10-08 07:00] LABS: Bilirubin, Total 0.3 mg/dL (0.2-1.0); Phosphorus 3.3 mg/dL (2.4-5.1)
[2024-10-08 07:04] LABS: Alanine Aminotransferase 59 U/L (7-40); Glucose 137 mg/dL (74-106); Potassium 3.1 mmol/L (3.5-5.1)
[2024-10-08] MEDS ORDERED: POTASSIUM CHL 20MEQ/50ML 50 ML IV SCH (10:15)
[2024-10-08] MEDS ORDERED: SODIUM CHL 0.9% 100 ML IV SCH (10:15)
--- NOTE | 2024-10-08 10:47 | DVHPN2 ---
Subjective Update 10/08 10/04 patient is status post lap appendectomy, surgery following. We will start antibiotics today. Patient yesterday had p.o. intolerance with nausea and vomiting after trying clear liquid diet. CT was done which showed possible small bowel obstruction in the right lower quadrant. Patient was made NPO and NG tube was inserted and put on intermittent suction. Surgery following labs pending patient feeling improved remains NPO, ambulating, having BM/gas. 10/05 showed me some absent bowel sounds this morning but not complaining of any abdominal pain. No bowel movement but is passing some gas. Patient was NPO. Complaining of back pain from lying in bed. Patient was ambulating, but has history of DVT and Eliquis is being held because of NPO. We will start full- dose Lovenox and continue ambulation. Patient abdominal binder is bothering him, notified to use abdominal binder when ambulating. We will try some a.m. p.o. meds for morning only and hold off suction by NG during that time.. Today plan we will start full-dose Lovenox continue ambulation, trial IV ceftriaxone with p.r.n. Benadryl if hives breaks out, Toradol IV 15 p.r.n. for severe pain, baclofen a.m. and out of bed in chair during the. Surgery to continue following. For antibiotics continue Flagyl, with trial of ceftriaxone (we will not do Cipro because QTC is 490). 10/06 patient had NG tube that was not secure and fell out twice overnight, patient was very agitated and irritable. Along with his he is also irritable agitated. They are verbally abusive to staff. Surgery is following Gastrografin today failed. Surgery Dr. Bowen taking over case. NG tube to be inserted back on intermittent low suction we will start PPN, continue Protonix daily. 10/07-patient and family more consulted. Fail to Gastrografin yesterday. We will ileus versus SBO possible. Surgery team transfer from to be Dr. Lynne to Dr. Gann. NG tube will reinserted yesterday. Started a PPN Clinimix yesterday low. Patient tolerating antibiotics and PPN well. Today bowel sounds absent. Vitals stable. Holding Lovenox the patient NPO for surgery follow up. We will get a KUB today. 10/08 - GI has seen. KUB yesterday w/o worsening ileus etc w NG in place. GI rec conservtion, watch/wait approach. IM wants GGF bowel series but patient declines and wants to try tomorrow. today he has 2x large BM and bowel sounds are improved. will continue PPN and IVF maintenance. midline today as patient has multiple infiltrations and dislikes being tried for PIV repeatedly. hypoK will replete, likely due to ileus/sbo .. CPT. Reviewed: Care Plan, H&P, Labs, Medications, Previous Orders, Radiology Changes from previous H/P or p: No Changes General: Per HPI Eyes: No Pain, No Vision change, No Conjunctivae inflammation, No Eyelid inflammation, No Other, No Redness ENT: No Ear pain, No Ear discharge, No Nose pain, No Nose discharge, No Nose congestion, No Mouth pain, No Mouth swelling, No Throat pain, No Throat swelling, No Other Cardiovascular: No Chest Pain, No Palpitations, No Orthopnea, No Paroxysmal Noc. Dyspnea, No Edema, No Lt Headedness, No Other Respiratory: No Cough, No Dry, No Shortness of breath, No SOB with excertion, No Wheezing, No Hemoptysis, No Pleuritic Pain, No Sputum, No Other Gastrointestinal: Nausea, Vomiting, Abdominal Pain Genitourinary: No Dysuria, No Frequency, No Incontinence, No Hematuria, No Retention, No Other Musculoskeletal: No other, No neck pain, No shoulder pain, No arm pain, No back pain, No hand pain, No leg pain, No foot pain Skin: No Rash, No Lesions, No Jaundice, No Bruising, No Other Objective Vitals Vital Signs Date Time Temp Pulse Resp B/P (MAP) Pulse Ox O2 Delivery O2 Flow Rate FiO2 10/08/24 08:33 97.6 58 18 119/66 (83) 96 97.6 10/07/24 20:00 Room Air* 0 21 Intake/Output Intake and Output 10/08/24 07:00 Intake Total 120 ml Output Total 500 ml Balance -380 ml Intake Oral 120 ml Emesis 500 ml # Voids 2 # Bowel Movements 1 Exam GEN: Healthy appearing, well-developed, NAD. HEENT: NC/AT; MMM. CV: RRR, no m/r/g. LUNGS: CTAB, no w/r/c. ABD: Abdominal binder present, abdominal incisions dressing is CDI, bowel sounds hypoactive, abdomen mildly tender right lower quadrant, NG tube inserted with green-yellow output,. EXT: skin Warm, well perfused. no rashes. No clubbing, cyanosis, or edema. NEURO: Ambulating with no limitations. No focal deficits. Neck: Supple Medications Current Medications Medications Dose Ordered Sig/Mulu Route Start Time Stop Time Status Last Admin Dose Admin Nitroglycerin 0.4 mg Q5MINP PRN SL 09/28/24 22:30 Acetaminophen/ Hydrocodone Bitart 1 tab Q4HP PRN PO 10/02/24 15:45 10/03/24 05:32 1 TAB Pantoprazole Sodium 40 mg DAILY IV 10/03/24 10:00 10/08/24 09:26 40 MG Morphine Sulfate 2 mg Q4HPRN PRN IV 10/04/24 00:15 10/07/24 22:06 2 MG Ondansetron HCl 4 mg Q4HPRN PRN IV 10/04/24 00:15 10/06/24 05:26 4 MG Metronidazole 100 ml @ 100 mls/hr Q8HR IV 10/04/24 22:00 10/08/24 06:19 100 MLS/HR Hydromorphone HCl 0.25 mg Q4HPRN PRN IV 10/04/24 19:15 Enoxaparin Sodium 110 mg Q12HR SC 10/05/24 10:00 10/08/24 09:35 110 MG Ketorolac Tromethamine 15 mg Q6HPRN PRN IV 10/05/24 10:00 10/10/24 09:59 10/05/24 11:22 15 MG Baclofen 10 mg DAILY PO 10/05/24 10:00 10/08/24 09:25 10 MG Ceftriaxone Sodium 50 ml @ 100 mls/hr DAILY@09 IV 10/06/24 09:00 10/08/24 09:25 100 MLS/HR Diphenhydramine HCl 25 mg Q4HP PRN IV 10/05/24 10:00 Amino Acids 0 ml @ 0 mls/hr PER PHARMACY IV 10/06/24 17:30 Diagnostic Test (Pha) 1 strip Q6HR 10/06/24 18:00 10/08/24 06:00 1 STRIP Insulin Human Regular FOLLOW SLIDING SCALE Q6HR SC 10/06/24 18:00 10/08/24 06:00 2 UNITS Dextrose 50 ml UD IV 10/06/24 17:45 Fat Emulsion Intravenous 50 ml/ Sodium Acetate 20 meq/Potassium Phosphate 10 meq/ Magnesium Sulfate 4 meq/ Multivitamins 10 ml/Chromium/ Copper/Manganese/ Zinc 1 ml/Amino Acids/Dextrose/ Purified Water 1,224.2727 ml @ 51 mls/hr Q24H1M IV 10/07/24 22:00 10/08/24 21:59 10/07/24 22:09 51 MLS/HR Fat Emulsion Intravenous 100 ml/Sodium Acetate 40 meq/Potassium Acetate 40 meq/ Magnesium Sulfate 4 meq/ Multivitamins 10 ml/Chromium/ Copper/Manganese/ Zinc 1 ml/Amino Acids/Dextrose/ Purified Water 1,952 ml @ 81 mls/hr Q24H6M IV 10/08/24 22:00 10/09/24 21:59 Potassium Chloride 50 ml @ 25 mls/hr Q2H IV 10/08/24 10:15 10/08/24 14:14 Sodium Chloride 100 ml @ 50 mls/hr Q2H IV 10/08/24 10:15 Laboratory Results Laboratory Tests 10/07/24 05:53 10/08/24 05:19 Chemistry Test 10/08/24 05:19 Albumin 3.8 g/dL (3.2-4.8) Calcium Level 9.0 mg/dL (8.7-10.4) Magnesium Level 2.3 mg/dL (1.6-2.6) Phosphorus Level 3.3 mg/dL (2.4-5.1) Total Protein 6.2 g/dL (5.7-8.2) LFT Test 10/08/24 05:19 Alanine Aminotransferase (ALT) 59 U/L (7-40) H Alkaline Phosphatase 83 U/L (46-116) Aspartate Amino Transferase (AST) 38 U/L (13-40) Total Bilirubin 0.3 mg/dL (0.2-1.0) Urinalysis Test 10/02/24 03:45 Urine Color Yellow (Yellow) Urine Clarity Clear (Clear) Urine pH 6.0 (5.0-9.0) Urine Specific [place] 1.032 (1.001-1.035) Urine Protein Trace (Negative) H Urine Ketones Trace (Negative) Urine Blood Negative /uL (Negative) Urine Nitrite Negative (Negative) Urine Bilirubin Negative (Negative) Urine Urobilinogen Normal mg/dL (Negative) Urine Leukocyte Esterase Trace /uL (Negative) Urine RBC 1 /hpf (0 - 3) Urine Microscopic WBC 1 /HPF (0-3) Urine Squamous Epithelial Cells Few /hpf (<5) Urine Bacteria None seen /hpf (None Seen) Urine Mucus Few (None Seen) Urine Glucose Normal mg/dL (Normal) Labs and/or images reviewed: Labs reviewed by me, Image(s) reviewed by me Assessment/Plan Assessment/Plan 10/08 - GI has seen. KUB yesterday w/o worsening ileus etc w NG in place. GI rec conservtion, watch/wait approach. IM wants GGF bowel series but patient declines and wants to try tomorrow. today he has 2x large BM and bowel sounds are improved. will continue PPN and IVF maintenance. midline today as patient has multiple infiltrations and dislikes being tried for PIV repeatedly. hypoK will replete, likely due to ileus/sbo .. CPT. Acute appendicitis with abscess, status post laparoscopic appendectomy Acute abdominal pain, resolving Intractable nausea and vomiting, resolving Postop bowel obstruction, SBO and ileus, expected course, resolving - GGF bowel series 10/06 failed. patient has emesis. NG tube reinsert 10/06. -midline for 10/08 - PPN - NPO - NG tube to intermittent suction - Surgery following , GI following. - iv ctx/flagyl (IV prn Benadryl if reaction occurs to cephalosporins) - IV Toradol for severe pain - po Baclofen a.m. daily, OOB to chair daily am - Encourage ambulation out of bed but use abdominal binder - Full-dose Lovenox, hold off Eliquis Diet NPO DVT prophylaxis Lovenox full dose GI prophylaxis Protonix Med tele Full code Plan discussed with: Patient My Orders Orders - FERNANDEZ LEUNG MD Procedure Category Date Status Time Insert Midline ORDERS 10/07/24 Transmitted 12:58 Amino Acid PHA 10/07/24 In Process Infusion... W/Fat 22:00 Ppn Per Pharmacy [facility] 10/07/24 In Process 22:00 Chest Xray 1 View XY 10/07/24 Resulted 15:40 * [facility] [employer] CONS 10/07/24 Transmitted 16:24 Amino Acid PHA 10/08/24 In Process Infusion... W/Fat 22:00 Comprehensive LAB 10/09/24 Verified Metabolic Panel 04:00 Magnesium LAB 10/09/24 Verified 04:00 Phosphorus LAB 10/09/24 Verified 04:00 Ppn Per Pharmacy [facility] 10/08/24 In Process 22:00 Potassium Chl PHA 10/08/24 In Process 20meq/50ml (Potassium 10:15 Sodium Chl 0.9% PHA 10/08/24 In Process (Sodium Chloride) 10:15 Date of Service: Oct 08, 2024 Billing Provider: FERNANDEZ LEUNG MD Common Visit Codes: [id number] INP/OBS CARE(HIGH) FERNANDEZ LEUNG MD Oct 08, 2024 10:47
[2024-10-08] MEDS: LACTATED RINGER'S 1,000 ML IV ONE (11:41)
--- NOTE | 2024-10-08 13:16 | DVHPN2 ---
Progress Note Date Seen: Oct 08, 2024 Medical Necessity Reason Pt with a Central, PICC or Fol: No Objective vital signs Vital Sign Date Time Temp Pulse Resp B/P (MAP) Pulse Ox O2 Delivery O2 Flow Rate FiO2 10/08/24 08:33 97.6 58 18 119/66 (83) 96 97.6 10/07/24 20:00 Room Air* 0 21 Total Intake and Output 10/07/24 10/07/24 10/08/24 15:00 23:00 07:00 Intake Total 120 ml 0 ml Output Total 500 ml Balance -380 ml 0 ml medications Current Medications Medications Dose Ordered Sig/Mulu Route Start Time Stop Time Status Last Admin Dose Admin Nitroglycerin 0.4 mg Q5MINP PRN SL 09/28/24 22:30 Pantoprazole Sodium 40 mg DAILY IV 10/03/24 10:00 10/08/24 09:26 40 MG Morphine Sulfate 2 mg Q4HPRN PRN IV 10/04/24 00:15 10/07/24 22:06 2 MG Ondansetron HCl 4 mg Q4HPRN PRN IV 10/04/24 00:15 10/06/24 05:26 4 MG Enoxaparin Sodium 110 mg Q12HR SC 10/05/24 10:00 10/08/24 09:35 110 MG Ketorolac Tromethamine 15 mg Q6HPRN PRN IV 10/05/24 10:00 10/10/24 09:59 10/05/24 11:22 15 MG Baclofen 10 mg DAILY PO 10/05/24 10:00 10/08/24 09:25 10 MG Ceftriaxone Sodium 50 ml @ 100 mls/hr DAILY@09 IV 10/06/24 09:00 10/08/24 09:25 100 MLS/HR Diphenhydramine HCl 25 mg Q4HP PRN IV 10/05/24 10:00 Amino Acids 0 ml @ 0 mls/hr PER PHARMACY IV 10/06/24 17:30 Diagnostic Test (Pha) 1 strip Q6HR 10/06/24 18:00 10/08/24 12:51 1 STRIP Insulin Human Regular FOLLOW SLIDING SCALE Q6HR SC 10/06/24 18:00 10/08/24 06:00 2 UNITS Dextrose 50 ml UD IV 10/06/24 17:45 Fat Emulsion Intravenous 50 ml/ Sodium Acetate 20 meq/Potassium Phosphate 10 meq/ Magnesium Sulfate 4 meq/ Multivitamins 10 ml/Chromium/ Copper/Manganese/ Zinc 1 ml/Amino Acids/Dextrose/ Purified Water 1,224.2727 ml @ 51 mls/hr Q24H1M IV 10/07/24 22:00 10/08/24 21:59 10/07/24 22:09 51 MLS/HR Fat Emulsion Intravenous 100 ml/Sodium Acetate 40 meq/Potassium Acetate 40 meq/ Magnesium Sulfate 4 meq/ Multivitamins 10 ml/Chromium/ Copper/Manganese/ Zinc 1 ml/Amino Acids/Dextrose/ Purified Water 1,952 ml @ 81 mls/hr Q24H6M IV 10/08/24 22:00 10/09/24 21:59 laboratory and microbiology Laboratory Tests 10/08/24 05:19 10/07/24 05:53 Test 10/08/24 05:19 Range/Units Serum Glucose 137 H 74-106 mg/dL Problem List/Assessment/Plan Problem List/Assessment/Plan 10/07/24PATIENT HAD APPENDECTOMY FOR RUPTURED APPENDICITIS ,MULTIPLE INTRA ABDOMINAL ABSCESSES NOW WITH NAUSEA AND VOMITING POST OP, GASTROGRAFIN SHOWS DELAYED TRANSIT, EACH TIME NG TUBE DC'D HE HAS VOMITING, WILL ASK FOR UGI ENDOSCOPY, IF NORMAL WILL CONSIDER LAPAROTOMY.. PTS ABDOMEN IS SOFT AND NOT VERY TENDER, WBC NL AND PT AFEBRILE,. ( COVERING FOR DR. Shayna WHITAKER 10/08/24 HAD SEVERAL WATERY BOWEL MOVEMENTS CONTAINING GASTROGRAFIN, ABDOMEN NON TENDER, WOUNDS OK, WILL CLAMP NGT AND ALLOW ADVANCING PO , IF NO NAUSEA WILL DC NGT TOMORROW Plan discussed with: Patient, Spouse Dietary Evaluation Review Recommendations by RD: Protein Supplementation Comments: 1) Advance to 2gm Na diet as medically feasible 2) Continue current plan of care Expected Outcomes/Goals: to meet at least 75% estimated needs within 7 days FU 2-3 days TERRELL FIGUEREDO MD Oct 08, 2024 13:16
--- NOTE | 2024-10-08 14:31 | DVHPN2 ---
Progress Note - Dictate Date Seen: Oct 08, 2024 Medical Necessity Reason Pt with a Central, PICC or Fol: No Subjective PT WITH ABD PAIN ACUTE APPENDICITIS S/P APPENDECTOMY ECHO EF >55% vital signs Vital Sign Date Time Temp Pulse Resp B/P (MAP) Pulse Ox O2 Delivery O2 Flow Rate FiO2 10/08/24 13:00 97.8 69 18 115/77 (90) 97 97.8 10/08/24 08:00 Room Air* 0 21 Total Intake and Output 10/07/24 10/07/24 10/08/24 15:00 23:00 07:00 Intake Total 120 ml 0 ml Output Total 500 ml Balance -380 ml 0 ml medications Current Medications Medications Dose Ordered Sig/Mulu Route Start Time Stop Time Status Last Admin Dose Admin Nitroglycerin 0.4 mg Q5MINP PRN SL 09/28/24 22:30 Pantoprazole Sodium 40 mg DAILY IV 10/03/24 10:00 10/08/24 09:26 40 MG Morphine Sulfate 2 mg Q4HPRN PRN IV 10/04/24 00:15 10/07/24 22:06 2 MG Ondansetron HCl 4 mg Q4HPRN PRN IV 10/04/24 00:15 10/06/24 05:26 4 MG Enoxaparin Sodium 110 mg Q12HR SC 10/05/24 10:00 10/08/24 09:35 110 MG Ketorolac Tromethamine 15 mg Q6HPRN PRN IV 10/05/24 10:00 10/10/24 09:59 10/05/24 11:22 15 MG Baclofen 10 mg DAILY PO 10/05/24 10:00 10/08/24 09:25 10 MG Ceftriaxone Sodium 50 ml @ 100 mls/hr DAILY@09 IV 10/06/24 09:00 10/08/24 09:25 100 MLS/HR Diphenhydramine HCl 25 mg Q4HP PRN IV 10/05/24 10:00 Amino Acids 0 ml @ 0 mls/hr PER PHARMACY IV 10/06/24 17:30 Diagnostic Test (Pha) 1 strip Q6HR 10/06/24 18:00 10/08/24 12:51 1 STRIP Insulin Human Regular FOLLOW SLIDING SCALE Q6HR SC 10/06/24 18:00 10/08/24 06:00 2 UNITS Dextrose 50 ml UD IV 10/06/24 17:45 Fat Emulsion Intravenous 50 ml/ Sodium Acetate 20 meq/Potassium Phosphate 10 meq/ Magnesium Sulfate 4 meq/ Multivitamins 10 ml/Chromium/ Copper/Manganese/ Zinc 1 ml/Amino Acids/Dextrose/ Purified Water 1,224.2727 ml @ 51 mls/hr Q24H1M IV 10/07/24 22:00 10/08/24 21:59 10/07/24 22:09 51 MLS/HR Fat Emulsion Intravenous 100 ml/Sodium Acetate 40 meq/Potassium Acetate 40 meq/ Magnesium Sulfate 4 meq/ Multivitamins 10 ml/Chromium/ Copper/Manganese/ Zinc 1 ml/Amino Acids/Dextrose/ Purified Water 1,952 ml @ 81 mls/hr Q24H6M IV 10/08/24 22:00 10/09/24 21:59 laboratory and microbiology Laboratory Tests 10/08/24 05:19 10/07/24 05:53 Test 10/08/24 05:19 Range/Units Serum Glucose 137 H 74-106 mg/dL Problem List ABD PAIN ACUTE APPENDICITIS S/P APPENDECTOMY ECHO EF >55% HX OF DVT HX OF PE Assessment/Plan MONITOR LABS PT DVT PROPHYLAXIS ATELECTASIS ILEUS BY CT PT NPO FOR NOW EVEN THOUGH PT WITH BS AND BM check kub DILATED SB C/W WITH SBO GASTROGRAFIN ENEMA INTERPRETATION OF SMALL BOWEL SERIES CONFUSING ? OBSTRUCTION CONT NG TO INTERMITTENT SUCTION PT NOW WITH BM MONITOR FOR 48H IF ILEUS RESOLVED Dietary Evaluation Review Recommendations by RD: Protein Supplementation Comments: 1) Advance to 2gm Na diet as medically feasible 2) Continue current plan of care Expected Outcomes/Goals: to meet at least 75% estimated needs within 7 days FU 2-3 days Plan discussed with: Patient, Spouse ANSLEY OKEEFE MD Oct 08, 2024 14:31
[2024-10-08] MEDS: POTASSIUM CHLORIDE 60 MEQ, LIDOCAINE 1% (LOCAL ANESTH.) 6 ML in SODIUM CHL 0.9% 500 ML IV ONE (17:52)
--- NOTE | 2024-10-08 19:38 | DVHPN2 ---
Progress Note - Dictate Date Seen: Oct 08, 2024 Medical Necessity Reason Pt with a Central, PICC or Fol: No Subjective Patient with status post appendectomy which was ruptured with small bowel ileus and partial obstruction Feeling better with some passage of gas and also some liquid bowel movements abdomen is softer vital signs Vital Sign Date Time Temp Pulse Resp B/P (MAP) Pulse Ox O2 Delivery O2 Flow Rate FiO2 10/08/24 17:00 97.8 72 18 116/71 (86) 97 97.8 10/08/24 08:00 Room Air* 0 21 Total Intake and Output 10/07/24 10/07/24 10/08/24 15:00 23:00 07:00 Intake Total 120 ml 0 ml Output Total 500 ml Balance -380 ml 0 ml medications Current Medications Medications Dose Ordered Sig/Mulu Route Start Time Stop Time Status Last Admin Dose Admin Nitroglycerin 0.4 mg Q5MINP PRN SL 09/28/24 22:30 Pantoprazole Sodium 40 mg DAILY IV 10/03/24 10:00 10/08/24 09:26 40 MG Morphine Sulfate 2 mg Q4HPRN PRN IV 10/04/24 00:15 10/07/24 22:06 2 MG Ondansetron HCl 4 mg Q4HPRN PRN IV 10/04/24 00:15 10/06/24 05:26 4 MG Enoxaparin Sodium 110 mg Q12HR SC 10/05/24 10:00 10/08/24 09:35 110 MG Ketorolac Tromethamine 15 mg Q6HPRN PRN IV 10/05/24 10:00 10/10/24 09:59 10/05/24 11:22 15 MG Baclofen 10 mg DAILY PO 10/05/24 10:00 10/08/24 09:25 10 MG Ceftriaxone Sodium 50 ml @ 100 mls/hr DAILY@09 IV 10/06/24 09:00 10/08/24 09:25 100 MLS/HR Diphenhydramine HCl 25 mg Q4HP PRN IV 10/05/24 10:00 Diagnostic Test (Pha) 1 strip Q6HR 10/06/24 18:00 10/08/24 18:02 1 STRIP Insulin Human Regular FOLLOW SLIDING SCALE Q6HR SC 10/06/24 18:00 10/08/24 18:08 4 UNITS Dextrose 50 ml UD IV 10/06/24 17:45 Fat Emulsion Intravenous 50 ml/ Sodium Acetate 20 meq/Potassium Phosphate 10 meq/ Magnesium Sulfate 4 meq/ Multivitamins 10 ml/Chromium/ Copper/Manganese/ Zinc 1 ml/Amino Acids/Dextrose/ Purified Water 1,224.2727 ml @ 51 mls/hr Q24H1M IV 10/07/24 22:00 10/08/24 21:59 10/07/24 22:09 51 MLS/HR Fat Emulsion Intravenous 100 ml/Sodium Acetate 40 meq/Potassium Acetate 40 meq/ Magnesium Sulfate 4 meq/ Multivitamins 10 ml/Chromium/ Copper/Manganese/ Zinc 1 ml/Amino Acids/Dextrose/ Purified Water 1,952 ml @ 81 mls/hr Q24H6M IV 10/08/24 22:00 10/09/24 21:59 objective Abdomen is soft no tenderness no rigidity no guarding n G-tube drainage minimal laboratory and microbiology Laboratory Tests 10/08/24 05:19 10/07/24 05:53 Test 10/08/24 05:19 Range/Units Serum Glucose 137 H 74-106 mg/dL Assessment/Plan 63-year-old with complaints of abdominal pain had appendectomy acute appendicitis which was ruptured had surgery for the same and has been having prolonged proper postoperative course with inability to have bowel movements and the motility issues in the small bowel Possibility of anastomotic area edema and partial obstruction most likely which should open up slowly with conservative treatment No evidence of any leakage in the small bowel series Patient is feeling better and passing gas and bowel movements today Plans We will recommend to increase the feeds slowly and DC the NG tube and see thank you Dr. Garcia Dietary Evaluation Review Recommendations by RD: Protein Supplementation Comments: 1) Advance to 2gm Na diet as medically feasible 2) Continue current plan of care Expected Outcomes/Goals: to meet at least 75% estimated needs within 7 days FU 2-3 days Plan discussed with: Patient EDITH GARCIA MD Oct 08, 2024 19:37
[2024-10-08] MEDS: PPN PER PHARMACY IV NR (22:36)
[2024-10-09] VITALS (8 sets, daily range): BP systolic 110–122; BP diastolic 71–78; PULSE 67–74; RESP 15–20; TEMP 97.3–98.4; O2SAT 94–98
[2024-10-09 05:25] LABS: BUN/Creatinine Ratio 14.3 (10.0-20.0); Blood Urea Nitrogen 17 mg/dL (9-23)
[2024-10-09 05:32] LABS: Carbon Dioxide 19 mmol/L (20-31); Glucose 113 mg/dL (74-106)
[2024-10-09 05:33] LABS: Albumin 3.7 g/dL (3.2-4.8); Alkaline Phosphatase 76 U/L (46-116)
[2024-10-09 05:34] LABS: Aspartate Aminotransferase 35 U/L (13-40); BUN/Creatinine Ratio 13.3 (10.0-20.0); Bilirubin, Total 0.4 mg/dL (0.2-1.0); Blood Urea Nitrogen 16 mg/dL (9-23); Calcium 9.1 mg/dL (8.7-10.4); Magnesium 2.2 mg/dL (1.6-2.6); Phosphorus 3.6 mg/dL (2.4-5.1); Total Protein 6.2 g/dL (5.7-8.2)
[2024-10-09 05:35] LABS: Alanine Aminotransferase 57 U/L (7-40); Carbon Dioxide 18 mmol/L (20-31); Glucose 118 mg/dL (74-106)
[2024-10-09 05:40] LABS: Anion Gap 11 (5-15); Potassium 4.1 mmol/L (3.5-5.1); Sodium 138 mmol/L (136-145)
[2024-10-09 05:42] LABS: Chloride 109 mmol/L (98-107)
[2024-10-09 05:43] LABS: Anion Gap 10 (5-15); Potassium 4.5 mmol/L (3.5-5.1); Sodium 138 mmol/L (136-145)
[2024-10-09 05:44] LABS: Chloride 109 mmol/L (98-107)
--- NOTE | 2024-10-09 10:28 | DVHPN2 ---
Subjective Date Seen: Oct 09, 2024 Post op day Post op day: 10 Patient reports: No new complaints, Feels better Nursing reports: No new complaints General: Normal HNT: Normal Cardiovascular: Normal Respiratory: Normal Gastrointestinal: Normal Genitourinary: Normal Musculoskeletal: Normal Neurological: Normal Objective Vitals Vital Sign Date Time Temp Pulse Resp B/P (MAP) Pulse Ox O2 Delivery O2 Flow Rate FiO2 10/09/24 09:00 97.8 74 15 121/73 (89) 95 97.8 10/09/24 08:00 Room Air* 0 21 Total Intake and Output 10/08/24 10/08/24 10/09/24 15:00 23:00 07:00 Intake Total 150 ml 740 ml 400 ml Balance 150 ml 740 ml 400 ml Medications Current Medications Medications Dose Ordered Sig/Mulu Route Start Time Stop Time Status Last Admin Dose Admin Nitroglycerin 0.4 mg Q5MINP PRN SL 09/28/24 22:30 Pantoprazole Sodium 40 mg DAILY IV 10/03/24 10:00 10/09/24 08:44 40 MG Morphine Sulfate 2 mg Q4HPRN PRN IV 10/04/24 00:15 10/07/24 22:06 2 MG Ondansetron HCl 4 mg Q4HPRN PRN IV 10/04/24 00:15 10/06/24 05:26 4 MG Enoxaparin Sodium 110 mg Q12HR SC 10/05/24 10:00 10/09/24 08:48 110 MG Ketorolac Tromethamine 15 mg Q6HPRN PRN IV 10/05/24 10:00 10/10/24 09:59 10/05/24 11:22 15 MG Baclofen 10 mg DAILY PO 10/05/24 10:00 10/09/24 08:44 10 MG Ceftriaxone Sodium 50 ml @ 100 mls/hr DAILY@09 IV 10/06/24 09:00 10/09/24 08:44 100 MLS/HR Diphenhydramine HCl 25 mg Q4HP PRN IV 10/05/24 10:00 Diagnostic Test (Pha) 1 strip Q6HR 10/06/24 18:00 10/08/24 18:02 1 STRIP Insulin Human Regular FOLLOW SLIDING SCALE Q6HR SC 10/06/24 18:00 10/08/24 18:08 4 UNITS Dextrose 50 ml UD IV 10/06/24 17:45 Fat Emulsion Intravenous 100 ml/Sodium Acetate 40 meq/Potassium Acetate 40 meq/ Magnesium Sulfate 4 meq/ Multivitamins 10 ml/Chromium/ Copper/Manganese/ Zinc 1 ml/Amino Acids/Dextrose/ Purified Water 1,952 ml @ 81 mls/hr Q24H6M IV 10/08/24 22:00 10/09/24 21:59 General: Normal, Well developed, Obese Head/Eyes: Normal ENT: Normal Neck: Normal, Supple Lungs: Normal, Normal inspection Cardiovascular: Normal, Regular rate and rhythm Abdominal: Normal, Soft Musculoskeletal: Normal Extremities: Normal Skin: Normal Labs and Microbiology Laboratory Tests 10/09/24 04:30 10/07/24 05:53 Test 10/09/24 04:30 Range/Units Serum Glucose 118 H 74-106 mg/dL Ass/Plan Labs and/or images reviewed: Labs reviewed by me, Image(s) reviewed by me Problem List 10/07/24PATIENT HAD APPENDECTOMY FOR RUPTURED APPENDICITIS ,MULTIPLE INTRA ABDOMINAL ABSCESSES NOW WITH NAUSEA AND VOMITING POST OP, GASTROGRAFIN SHOWS DELAYED TRANSIT, EACH TIME NG TUBE DC'D HE HAS VOMITING, WILL ASK FOR UGI ENDOSCOPY, IF NORMAL WILL CONSIDER LAPAROTOMY.. PTS ABDOMEN IS SOFT AND NOT VERY TENDER, WBC NL AND PT AFEBRILE,. ( COVERING FOR DR. Shayna WHITAKER 10/08/24 HAD SEVERAL WATERY BOWEL MOVEMENTS CONTAINING GASTROGRAFIN, ABDOMEN NON TENDER, WOUNDS OK, WILL CLAMP NGT AND ALLOW ADVANCING PO , IF NO NAUSEA WILL DC NGT TOMORROW Problems(with codes): (1) Ileus (2) Acute appendicitis Assessment/Plan patient is post op appendectomy , he was complaining of abdominal pain and no bowel movement today patient states he feels better and has been having BM every 2-3 hours denies nausea or vomiting Plan: DC NGT regular diet patient to ambulate Prognosis: Excellent Plan discussed with patient, patients , Dr. Gann Visit Coding Surgery Date of Service if different f: Oct 09, 2024 Billing Provider: TERRELL GANN MD Surgery Visit Codes: [id number] INP/OBS CARE(HIGH) TAVIA DURAN [employer] Oct 09, 2024 10:28
--- NOTE | 2024-10-09 18:49 | DVHPN2 ---
Subjective Update 10/09 10/04 patient is status post lap appendectomy, surgery following. We will start antibiotics today. Patient yesterday had p.o. intolerance with nausea and vomiting after trying clear liquid diet. CT was done which showed possible small bowel obstruction in the right lower quadrant. Patient was made NPO and NG tube was inserted and put on intermittent suction. Surgery following labs pending patient feeling improved remains NPO, ambulating, having BM/gas. 10/05 showed me some absent bowel sounds this morning but not complaining of any abdominal pain. No bowel movement but is passing some gas. Patient was NPO. Complaining of back pain from lying in bed. Patient was ambulating, but has history of DVT and Eliquis is being held because of NPO. We will start full- dose Lovenox and continue ambulation. Patient abdominal binder is bothering him, notified to use abdominal binder when ambulating. We will try some a.m. p.o. meds for morning only and hold off suction by NG during that time.. Today plan we will start full-dose Lovenox continue ambulation, trial IV ceftriaxone with p.r.n. Benadryl if hives breaks out, Toradol IV 15 p.r.n. for severe pain, baclofen a.m. and out of bed in chair during the. Surgery to continue following. For antibiotics continue Flagyl, with trial of ceftriaxone (we will not do Cipro because QTC is 490). 10/06 patient had NG tube that was not secure and fell out twice overnight, patient was very agitated and irritable. Along with his he is also irritable agitated. They are verbally abusive to staff. Surgery is following Gastrografin today failed. Surgery Dr. Bowen taking over case. NG tube to be inserted back on intermittent low suction we will start PPN, continue Protonix daily. 10/07-patient and family more consulted. Fail to Gastrografin yesterday. We will ileus versus SBO possible. Surgery team transfer from to be Dr. Lynne to Dr. Gann. NG tube will reinserted yesterday. Started a PPN Clinimix yesterday low. Patient tolerating antibiotics and PPN well. Today bowel sounds absent. Vitals stable. Holding Lovenox the patient NPO for surgery follow up. We will get a KUB today. 10/08 - GI has seen. KUB yesterday w/o worsening ileus etc w NG in place. GI rec conservtion, watch/wait approach. IM wants GGF bowel series but patient declines and wants to try tomorrow. today he has 2x large BM and bowel sounds are improved. will continue PPN and IVF maintenance. midline today as patient has multiple infiltrations and dislikes being tried for PIV repeatedly. hypoK will replete, likely due to ileus/sbo .. CPT. 10/09 patient tolerating clear liquid diet, surgery following, bowel sounds improving,. Surgery plan to remove NG tube today and try regular diet. If continues improving we will polyp be discharge tomorrow. Vital signs stable labs stable. Continues having bowel movements. Reviewed: Care Plan, H&P, Labs, Medications, Previous Orders, Radiology Changes from previous H/P or p: No Changes General: Per HPI Eyes: No Pain, No Vision change, No Conjunctivae inflammation, No Eyelid inflammation, No Other, No Redness ENT: No Ear pain, No Ear discharge, No Nose pain, No Nose discharge, No Nose congestion, No Mouth pain, No Mouth swelling, No Throat pain, No Throat swelling, No Other Cardiovascular: No Chest Pain, No Palpitations, No Orthopnea, No Paroxysmal Noc. Dyspnea, No Edema, No Lt Headedness, No Other Respiratory: No Cough, No Dry, No Shortness of breath, No SOB with excertion, No Wheezing, No Hemoptysis, No Pleuritic Pain, No Sputum, No Other Gastrointestinal: Nausea, Vomiting, Abdominal Pain Genitourinary: No Dysuria, No Frequency, No Incontinence, No Hematuria, No Retention, No Other Musculoskeletal: No other, No neck pain, No shoulder pain, No arm pain, No back pain, No hand pain, No leg pain, No foot pain Skin: No Rash, No Lesions, No Jaundice, No Bruising, No Other Objective Vitals Vital Signs Date Time Temp Pulse Resp B/P (MAP) Pulse Ox O2 Delivery O2 Flow Rate FiO2 10/09/24 16:57 98.0 71 16 110/77 (88) 95 98.0 10/09/24 08:00 Room Air* 0 21 Intake/Output Intake and Output 10/09/24 07:00 Intake Total 2165 ml Balance 2165 ml Intake Oral 1140 ml IV Total 1025 ml # Voids 6 # Bowel Movements 5 Exam GEN: Healthy appearing, well-developed, NAD. HEENT: NC/AT; MMM. CV: RRR, no m/r/g. LUNGS: CTAB, no w/r/c. ABD: Abdominal binder present, abdominal incisions dressing is CDI, bowel sounds hypoactive, abdomen mildly tender right lower quadrant, NG tube inserted with green-yellow output,. EXT: skin Warm, well perfused. no rashes. No clubbing, cyanosis, or edema. NEURO: Ambulating with no limitations. No focal deficits. Neck: Supple Medications Current Medications Medications Dose Ordered Sig/Mulu Route Start Time Stop Time Status Last Admin Dose Admin Nitroglycerin 0.4 mg Q5MINP PRN SL 09/28/24 22:30 Pantoprazole Sodium 40 mg DAILY IV 10/03/24 10:00 10/09/24 08:44 40 MG Morphine Sulfate 2 mg Q4HPRN PRN IV 10/04/24 00:15 10/07/24 22:06 2 MG Ondansetron HCl 4 mg Q4HPRN PRN IV 10/04/24 00:15 10/06/24 05:26 4 MG Enoxaparin Sodium 110 mg Q12HR SC 10/05/24 10:00 10/09/24 08:48 110 MG Ketorolac Tromethamine 15 mg Q6HPRN PRN IV 10/05/24 10:00 10/10/24 09:59 10/05/24 11:22 15 MG Baclofen 10 mg DAILY PO 10/05/24 10:00 10/09/24 08:44 10 MG Ceftriaxone Sodium 50 ml @ 100 mls/hr DAILY@09 IV 10/06/24 09:00 10/09/24 08:44 100 MLS/HR Diphenhydramine HCl 25 mg Q4HP PRN IV 10/05/24 10:00 Laboratory Results Laboratory Tests 10/07/24 05:53 10/09/24 04:30 Chemistry Test 10/09/24 04:30 Albumin 3.7 g/dL (3.2-4.8) Calcium Level 9.1 mg/dL (8.7-10.4) Magnesium Level 2.2 mg/dL (1.6-2.6) Phosphorus Level 3.6 mg/dL (2.4-5.1) Total Protein 6.2 g/dL (5.7-8.2) LFT Test 10/09/24 04:30 Alanine Aminotransferase (ALT) 57 U/L (7-40) H Alkaline Phosphatase 76 U/L (46-116) Aspartate Amino Transferase (AST) 35 U/L (13-40) Total Bilirubin 0.4 mg/dL (0.2-1.0) Urinalysis Test 10/02/24 03:45 Urine Color Yellow (Yellow) Urine Clarity Clear (Clear) Urine pH 6.0 (5.0-9.0) Urine Specific Gilliam 1.032 (1.001-1.035) Urine Protein Trace (Negative) H Urine Ketones Trace (Negative) Urine Blood Negative /uL (Negative) Urine Nitrite Negative (Negative) Urine Bilirubin Negative (Negative) Urine Urobilinogen Normal mg/dL (Negative) Urine Leukocyte Esterase Trace /uL (Negative) Urine RBC 1 /hpf (0 - 3) Urine Microscopic WBC 1 /HPF (0-3) Urine Squamous Epithelial Cells Few /hpf (<5) Urine Bacteria None seen /hpf (None Seen) Urine Mucus Few (None Seen) Urine Glucose Normal mg/dL (Normal) Labs and/or images reviewed: Labs reviewed by me, Image(s) reviewed by me Assessment/Plan Assessment/Plan 10/09 patient tolerating clear liquid diet, surgery following, bowel sounds improving,. Surgery plan to remove NG tube today and try regular diet. If continues improving we will polyp be discharge tomorrow. Vital signs stable labs stable. Continues having bowel movements. Acute appendicitis with abscess, status post laparoscopic appendectomy Acute abdominal pain, resolving Intractable nausea and vomiting, resolving Postop bowel obstruction, SBO and ileus, expected course, resolving - GGF bowel series 10/06 failed. patient has emesis. NG tube reinsert 10/06. -midline for 10/08 - PPN stopped 10/09 - diet reg - NG tube to intermittent suction - Surgery following , GI following. - iv ctx/flagyl (IV prn Benadryl if reaction occurs to cephalosporins) - IV Toradol for severe pain - po Baclofen a.m. daily, OOB to chair daily am - Encourage ambulation out of bed but use abdominal binder - Full-dose Lovenox, hold off Eliquis Diet reg DVT prophylaxis Lovenox full dose GI prophylaxis Protonix Med tele Full code Plan discussed with: Patient Date of Service: Oct 09, 2024 Billing Provider: FERNANDEZ LEUNG MD Common Visit Codes: [id number] INP/OBS CARE(HIGH) FERNANDEZ LEUNG MD Oct 09, 2024 18:49
[2024-10-10] VITALS (7 sets, daily range): BP systolic 107–121; BP diastolic 64–69; PULSE 61–69; RESP 16–18; TEMP 37; O2SAT 94–97
--- NOTE | 2024-10-10 08:43 | DVHPN2 ---
Progress Note Date Seen: Oct 10, 2024 Medical Necessity Reason Pt with a Central, PICC or Fol: No Objective vital signs Vital Sign Date Time Temp Pulse Resp B/P (MAP) Pulse Ox O2 Delivery O2 Flow Rate FiO2 10/10/24 08:00 Room Air* 0 21 10/10/24 05:00 96.7 65 18 121/67 (85) 95 96.7 Total Intake and Output 10/09/24 10/09/24 10/10/24 15:00 23:00 07:00 Intake Total 50 ml 620 ml 1300 ml Balance 50 ml 620 ml 1300 ml medications Current Medications Medications Dose Ordered Sig/Mulu Route Start Time Stop Time Status Last Admin Dose Admin Nitroglycerin 0.4 mg Q5MINP PRN SL 09/28/24 22:30 Pantoprazole Sodium 40 mg DAILY IV 10/03/24 10:00 10/09/24 08:44 40 MG Morphine Sulfate 2 mg Q4HPRN PRN IV 10/04/24 00:15 10/07/24 22:06 2 MG Ondansetron HCl 4 mg Q4HPRN PRN IV 10/04/24 00:15 10/06/24 05:26 4 MG Enoxaparin Sodium 110 mg Q12HR SC 10/05/24 10:00 10/09/24 22:00 110 MG Ketorolac Tromethamine 15 mg Q6HPRN PRN IV 10/05/24 10:00 10/10/24 09:59 10/05/24 11:22 15 MG Baclofen 10 mg DAILY PO 10/05/24 10:00 10/09/24 08:44 10 MG Ceftriaxone Sodium 50 ml @ 100 mls/hr DAILY@09 IV 10/06/24 09:00 10/09/24 08:44 100 MLS/HR Diphenhydramine HCl 25 mg Q4HP PRN IV 10/05/24 10:00 laboratory and microbiology Laboratory Tests 10/09/24 04:30 10/07/24 05:53 Test 10/09/24 04:30 Range/Units Serum Glucose 118 H 74-106 mg/dL Problem List/Assessment/Plan Problem List/Assessment/Plan 10/07/24PATIENT HAD APPENDECTOMY FOR RUPTURED APPENDICITIS ,MULTIPLE INTRA ABDOMINAL ABSCESSES NOW WITH NAUSEA AND VOMITING POST OP, GASTROGRAFIN SHOWS DELAYED TRANSIT, EACH TIME NG TUBE DC'D HE HAS VOMITING, WILL ASK FOR UGI ENDOSCOPY, IF NORMAL WILL CONSIDER LAPAROTOMY.. PTS ABDOMEN IS SOFT AND NOT VERY TENDER, WBC NL AND PT AFEBRILE,. ( COVERING FOR DR. Shayna WHITAKER 10/08/24 HAD SEVERAL WATERY BOWEL MOVEMENTS CONTAINING GASTROGRAFIN, ABDOMEN NON TENDER, WOUNDS OK, WILL CLAMP NGT AND ALLOW ADVANCING PO , IF NO NAUSEA WILL DC NGT TOMORROW 10/10/24 doing well, wound ok, abdomen soft, non distended, non tender, nl bowel activity, ok to discharge Plan discussed with: Patient, Spouse Dietary Evaluation Review Recommendations by RD: Protein Supplementation Comments: 1) Advance to 2gm Na diet as medically feasible 2) Continue current plan of care Expected Outcomes/Goals: to meet at least 75% estimated needs within 7 days FU 2-3 days TERRELL FIGUEREDO MD Oct 10, 2024 08:43
--- NOTE | 2024-10-10 12:27 | DVHPN2 ---
Progress Note - Dictate Date Seen: Oct 10, 2024 Medical Necessity Reason Pt with a Central, PICC or Fol: No Subjective Patient with status post appendectomy which was ruptured with small bowel ileus and partial obstruction Feeling better with some passage of gas and also some liquid bowel movements abdomen is softer Patient is continuing to do better has good bowel movements Complaints of some weakness some some mild cramps vital signs Vital Sign Date Time Temp Pulse Resp B/P (MAP) Pulse Ox O2 Delivery O2 Flow Rate FiO2 10/10/24 09:00 97.6 64 16 121/64 (83) 97 97.6 10/10/24 08:00 Room Air* 0 21 Total Intake and Output 10/09/24 10/09/24 10/10/24 14:59 22:59 06:59 Intake Total 50 ml 620 ml 1300 ml Balance 50 ml 620 ml 1300 ml medications Current Medications Medications Dose Ordered Sig/Mulu Route Start Time Stop Time Status Last Admin Dose Admin Nitroglycerin 0.4 mg Q5MINP PRN SL 09/28/24 22:30 Pantoprazole Sodium 40 mg DAILY IV 10/03/24 10:00 10/10/24 09:01 40 MG Morphine Sulfate 2 mg Q4HPRN PRN IV 10/04/24 00:15 10/07/24 22:06 2 MG Ondansetron HCl 4 mg Q4HPRN PRN IV 10/04/24 00:15 10/06/24 05:26 4 MG Enoxaparin Sodium 110 mg Q12HR SC 10/05/24 10:00 10/10/24 09:06 110 MG Baclofen 10 mg DAILY PO 10/05/24 10:00 10/09/24 08:44 10 MG Ceftriaxone Sodium 50 ml @ 100 mls/hr DAILY@09 IV 10/06/24 09:00 10/10/24 08:58 100 MLS/HR Diphenhydramine HCl 25 mg Q4HP PRN IV 10/05/24 10:00 objective Abdomen is soft no tenderness no rigidity no guarding Bowel sounds normal No tenderness no rigidity laboratory and microbiology Laboratory Tests 10/09/24 04:30 10/07/24 05:53 Test 10/09/24 04:30 Range/Units Serum Glucose 118 H 74-106 mg/dL Assessment/Plan will recommend to increase the feeds increase the activity Monitor the electrolytes Advance the diet slowly Thank you Dr. Garcia Dietary Evaluation Review Recommendations by RD: Protein Supplementation Comments: 1) Advance to 2gm Na diet as medically feasible 2) Continue current plan of care Expected Outcomes/Goals: to meet at least 75% estimated needs within 7 days FU 2-3 days Plan discussed with: Patient EDITH GARCIA MD Oct 10, 2024 12:27
[2024-10-10] MEDS ORDERED: CIPR-173 PO (12:41)
--- NOTE | 2024-10-10 12:46 | DVHDS2 ---
Discharge Summary Date of Admission Sep 28, 2024 at 22:17 Date of Discharge: Sep 29, 2024 Labs/Diagnostic Data: Laboratory Results Test 10/09/24 04:30 10/08/24 18:01 10/07/24 09:30 10/07/24 05:53 Sodium Level 138 mmol/L (136-145) Potassium Level 4.1 mmol/L (3.5-5.1) Chloride Level 109 mmol/L (98-107) Carbon Dioxide Level 18 mmol/L (20-31) Anion Gap 11 (5-15) Blood Urea Nitrogen 16 mg/dL (9-23) Creatinine 1.20 mg/dL (0.700-1.30) Glomerular Filtration Rate Calc 68 mL/min (>90) BUN/Creatinine Ratio 13.3 (10.0-20.0) Serum Glucose 118 mg/dL (74-106) Calcium Level 9.1 mg/dL (8.7-10.4) Phosphorus Level 3.6 mg/dL (2.4-5.1) Magnesium Level 2.2 mg/dL (1.6-2.6) Total Bilirubin 0.4 mg/dL (0.2-1.0) Aspartate Amino Transferase (AST) 35 U/L (13-40) Alanine Aminotransferase (ALT) 57 U/L (7-40) Alkaline Phosphatase 76 U/L (46-116) Total Protein 6.2 g/dL (5.7-8.2) Albumin 3.7 g/dL (3.2-4.8) POC Glucose 191 mg/dl (70-106) Triglycerides Level 180 mg/dL (< 150) White Blood Count 9.9 10^3/uL (4.4-10.8) Red Blood Count 4.19 10^6/uL (4.5-5.90) Hemoglobin 13.2 g/dL (13.5-17.5) Hematocrit 41.0 % (41.0-53.0) Mean Corpuscular Volume 97.8 fL (80.0-100.0) Mean Corpuscular Hemoglobin 31.4 pg (28.0-32.0) Mean Corpuscular Hemoglobin Concent 32.1 g/dL (32.0-36.0) Red Cell Distribution Width 14.2 % (11.8-14.3) Platelet Count 339 10^3/uL (140-450) Mean Platelet Volume 8.5 fL (6.9-10.8) Neutrophils (%) (Auto) 74.2 % (37.0-80.0) Lymphocytes (%) (Auto) 15.6 % (10.0-50.0) Monocytes (%) (Auto) 8.0 % (0.0-12.0) Eosinophils (%) (Auto) 1.0 % (0.0-7.0) Basophils (%) (Auto) 1.2 % (0.0-2.0) Neutrophils # (Auto) 7.4 10 ^3/uL (1.6-8.6) Lymphocytes # (Auto) 1.5 10 ^3/uL (0.4-5.4) Monocytes # (Auto) 0.8 10 ^3/uL (0-1.3) Eosinophils # (Auto) 0.1 10 ^3/uL (0-0.8) Basophils # (Auto) 0.1 10 ^3/uL (0-0.2) Nucleated Red Blood Cells 0.0 % Test 10/02/24 03:45 09/28/24 18:26 Urine Color Yellow (Yellow) Urine Clarity Clear (Clear) Urine pH 6.0 (5.0-9.0) Urine Specific [place] 1.032 (1.001-1.035) Urine Protein Trace (Negative) Urine Ketones Trace (Negative) Urine Blood Negative /uL (Negative) Urine Nitrite Negative (Negative) Urine Bilirubin Negative (Negative) Urine Urobilinogen Normal mg/dL (Negative) Urine Leukocyte Esterase Trace /uL (Negative) Urine RBC 1 /hpf (0 - 3) Urine Microscopic WBC 1 /HPF (0-3) Urine Squamous Epithelial Cells Few /hpf (<5) Urine Bacteria None seen /hpf (None Seen) Urine Mucus Few (None Seen) Urine Glucose Normal mg/dL (Normal) Prothrombin Time 11.8 sec (9.3-11.8) Prothrombin Time INR 1.13 (0.9-1.15) Activated Partial Thromboplast Time 26.6 SEC (24.5-34.5) Lipase 39 U/L (12-53) Other Laboratory Tests 10/09/24 04:30 10/07/24 05:53 Brief Hx & Hospital Course: 10/04 patient is status post lap appendectomy, surgery following. We will start antibiotics today. Patient yesterday had p.o. intolerance with nausea and vomiting after trying clear liquid diet. CT was done which showed possible small bowel obstruction in the right lower quadrant. Patient was made NPO and NG tube was inserted and put on intermittent suction. Surgery following labs pending patient feeling improved remains NPO, ambulating, having BM/gas. 10/05 showed me some absent bowel sounds this morning but not complaining of any abdominal pain. No bowel movement but is passing some gas. Patient was NPO. Complaining of back pain from lying in bed. Patient was ambulating, but has history of DVT and Eliquis is being held because of NPO. We will start full- dose Lovenox and continue ambulation. Patient abdominal binder is bothering him, notified to use abdominal binder when ambulating. We will try some a.m. p.o. meds for morning only and hold off suction by NG during that time.. Today plan we will start full-dose Lovenox continue ambulation, trial IV ceftriaxone with p.r.n. Benadryl if hives breaks out, Toradol IV 15 p.r.n. for severe pain, baclofen a.m. and out of bed in chair during the. Surgery to continue following. For antibiotics continue Flagyl, with trial of ceftriaxone (we will not do Cipro because QTC is 490). 10/06 patient had NG tube that was not secure and fell out twice overnight, patient was very agitated and irritable. Along with his he is also irritable agitated. They are verbally abusive to staff. Surgery is following Gastrografin today failed. Surgery Dr. Bowen taking over case. NG tube to be inserted back on intermittent low suction we will start PPN, continue Protonix daily. 10/07-patient and family more consulted. Fail to Gastrografin yesterday. We will ileus versus SBO possible. Surgery team transfer from to be Dr. Lynne to Dr. Gann. NG tube will reinserted yesterday. Started a PPN Clinimix yesterday low. Patient tolerating antibiotics and PPN well. Today bowel sounds absent. Vitals stable. Holding Lovenox the patient NPO for surgery follow up. We will get a KUB today. 10/08 - GI has seen. KUB yesterday w/o worsening ileus etc w NG in place. GI rec conservtion, watch/wait approach. IM wants GGF bowel series but patient declines and wants to try tomorrow. today he has 2x large BM and bowel sounds are improved. will continue PPN and IVF maintenance. midline today as patient has multiple infiltrations and dislikes being tried for PIV repeatedly. hypoK will replete, likely due to ileus/sbo .. CPT. 10/09 patient tolerating clear liquid diet, surgery following, bowel sounds improving,. Surgery plan to remove NG tube today and try regular diet. If continues improving we will polyp be discharge tomorrow. Vital signs stable labs stable. Continues having bowel movements. diagnosis: Acute appendicitis with abscess, status post laparoscopic appendectomy Acute abdominal pain, resolving Intractable nausea and vomiting, resolving Postop bowel obstruction, SBO and ileus, expected course, resolving Leukocytosis resolved Neutrophilia resolved JANET due to VMN CKD 2 hypertension, hyperlipidemia, history pulmonary embolism plan: pcp 1-2 weeks surgeon per scheduledr Lynne complete cipro and metro antibiotics soft diet and advance as tolerated Condition at Discharge: Stable Final Diagnosis/Problems List Acute appendicitis with abscess, status post laparoscopic appendectomy Acute abdominal pain, resolving Intractable nausea and vomiting, resolving Postop bowel obstruction, SBO and ileus, expected course, resolving Leukocytosis resolved Neutrophilia resolved JANET due to VMN CKD 2 hypertension, hyperlipidemia, history pulmonary embolism Discharge Disposition: Home Discharge Instruct/Medications Diet: Regular Activity: No Restrictions, As Tolerated Follow Up/Referral: pcp 1-2 weeks surgeon per scheduledr Lynne Medications: complete cipro and metro antibiotics soft diet and advance as tolerated Discharge Statement: "Patient was advised to return to the ER or call 911 if any headaches, dizziness, shortness of breath, chest pain, abdominal pain, bleeding, fevers, or worsening of medical condition. Patient was counseled about treatment plan, medications, possible side effects, patientverbalized understanding. All questions were answered to the best of my ability. This discharge took greater then 30 minutes in planning, reviewing documentation, counseling the patient, and discussing with other team members." Date of Service: Oct 10, 2024 Billing Provider: FERNANDEZ LEUNG MD Common Visit Codes: 47807-BRA/OBS DISCH DAY >30min FERNANDEZ LEUNG MD Oct 10, 2024 12:46
--- NOTE | 2024-10-11 09:09 | DVHPN2 ---
Progress Note - Dictate Date Seen: Oct 09, 2024 Medical Necessity Reason Pt with a Central, PICC or Fol: No Subjective PT WITH ABD PAIN ACUTE APPENDICITIS S/P APPENDECTOMY ECHO EF >55% vital signs Vital Sign Date Time Temp Pulse Resp B/P (MAP) Pulse Ox O2 Delivery O2 Flow Rate FiO2 10/10/24 13:15 37.0 69 17 95 10/10/24 13:00 107/66 (80) 10/10/24 08:00 Room Air* 0 21 Total Intake and Output 10/10/24 10/10/24 10/11/24 15:00 23:00 07:00 Intake Total 50 ml Balance 50 ml laboratory and microbiology Laboratory Tests 10/09/24 04:30 10/07/24 05:53 Test 10/09/24 04:30 Range/Units Serum Glucose 118 H 74-106 mg/dL Problem List ABD PAIN ACUTE APPENDICITIS S/P APPENDECTOMY ECHO EF >55% HX OF DVT HX OF PE Assessment/Plan MONITOR LABS PT DVT PROPHYLAXIS ATELECTASIS ILEUS BY CT PT NPO FOR NOW EVEN THOUGH PT WITH BS AND BM check kub DILATED SB C/W WITH SBO GASTROGRAFIN ENEMA INTERPRETATION OF SMALL BOWEL SERIES CONFUSING ? OBSTRUCTION CONT NG TO INTERMITTENT SUCTION PT NOW WITH BM MONITOR FOR 48H IF ILEUS RESOLVED START PO IF TOLERATED ADVANCE DIET Dietary Evaluation Review Recommendations by RD: Protein Supplementation Comments: 1) Advance to 2gm Na diet as medically feasible 2) Continue current plan of care Expected Outcomes/Goals: to meet at least 75% estimated needs within 7 days FU 2-3 days Plan discussed with: Patient, Spouse ANSLEY OKEEFE MD Oct 11, 2024 09:09
--- NOTE | 2024-10-11 09:09 | DVHPN2 ---
Progress Note - Dictate Date Seen: Oct 10, 2024 Medical Necessity Reason Pt with a Central, PICC or Fol: No Subjective PT WITH ABD PAIN ACUTE APPENDICITIS S/P APPENDECTOMY ECHO EF >55% vital signs Vital Sign Date Time Temp Pulse Resp B/P (MAP) Pulse Ox O2 Delivery O2 Flow Rate FiO2 10/10/24 13:15 37.0 69 17 95 10/10/24 13:00 107/66 (80) 10/10/24 08:00 Room Air* 0 21 Total Intake and Output 10/10/24 10/10/24 10/11/24 15:00 23:00 07:00 Intake Total 50 ml Balance 50 ml laboratory and microbiology Laboratory Tests 10/09/24 04:30 10/07/24 05:53 Test 10/09/24 04:30 Range/Units Serum Glucose 118 H 74-106 mg/dL Problem List ABD PAIN ACUTE APPENDICITIS S/P APPENDECTOMY ECHO EF >55% HX OF DVT HX OF PE Assessment/Plan MONITOR LABS PT DVT PROPHYLAXIS ATELECTASIS ILEUS BY CT PT NPO FOR NOW EVEN THOUGH PT WITH BS AND BM check kub DILATED SB C/W WITH SBO GASTROGRAFIN ENEMA INTERPRETATION OF SMALL BOWEL SERIES CONFUSING ? OBSTRUCTION CONT NG TO INTERMITTENT SUCTION PT NOW WITH BM MONITOR FOR 48H IF ILEUS RESOLVED START PO IF TOLERATED ADVANCE DIET MAY DC HOME Dietary Evaluation Review Recommendations by RD: Protein Supplementation Comments: 1) Advance to 2gm Na diet as medically feasible 2) Continue current plan of care Expected Outcomes/Goals: to meet at least 75% estimated needs within 7 days FU 2-3 days Plan discussed with: Patient, Spouse ANSLEY OKEEFE MD Oct 11, 2024 09:09
== END 2024-10-10 13:50 | disposition home or self-care (01) | DRG 335 ==
LOC: ER 17:32 → OVERFLOW 22:17 → TELE-CENTR 23:39
PROVIDERS: ADMIT Student in an Organized Health Care Education/Training Program; ATTEND Student in an Organized Health Care Education/Training Program
PROC: 0DNW4ZZ Release Peritoneum, Percutaneous Endoscopic Approach (ICD-10-PCS; 2024-09-28)
PROC: 0W9G40Z Drainage of Peritoneal Cavity with Drainage Device, Percutaneous Endoscopic Approach (ICD-10-PCS; 2024-09-28)
PROC: 0DTJ4ZZ Resection of Appendix, Percutaneous Endoscopic Approach (ICD-10-PCS; principal; 2024-09-28 21:36)
PROC: 0D9670Z Drainage of Stomach with Drainage Device, Via Natural or Artificial Opening (ICD-10-PCS; 2024-10-03)
PROC: 05HC33Z Insertion of Infusion Device into Left Basilic Vein, Percutaneous Approach (ICD-10-PCS; 2024-10-08)
PROC: B54NZZA Ultrasonography of Left Upper Extremity Veins, Guidance (ICD-10-PCS; 2024-10-08)
DX: K35.33 Acute appendicitis with perforation, localized peritonitis, and gangrene, with abscess (principal); N17.0 Acute kidney failure with tubular necrosis; J98.11 Atelectasis; K91.30 Postprocedural intestinal obstruction, unspecified as to partial versus complete; K66.0 Peritoneal adhesions (postprocedural) (postinfection); E78.5 Hyperlipidemia, unspecified; N18.2 Chronic kidney disease, stage 2 (mild); I12.9 Hypertensive chronic kidney disease with stage 1 through stage 4 chronic kidney disease, or unspecified chronic kidney disease; Z88.0 Allergy status to penicillin; Z82.3 Family history of stroke; Z80.8 Family history of malignant neoplasm of other organs or systems; Z88.1 Allergy status to other antibiotic agents; Z86.718 Personal history of other venous thrombosis and embolism; Z90.49 Acquired absence of other specified parts of digestive tract; Z86.711 Personal history of pulmonary embolism; Y83.8 Other surgical procedures as the cause of abnormal reaction of the patient, or of later complication, without mention of misadventure at the time of the procedure; Y92.238 Other place in hospital as the place of occurrence of the external cause
CPT/HCPCS: 36415; 71045; 74018; 74176; 74250; 80048; 80053; 81001; 82962; 83690; 83735; 84100; 84478; 85025; 85610; 85730; 86850; 86900; 86901; 93005; 96365; 96375; G0378; J0131; J0330; J1815; J1885; J2003; J2405; J2470; J2704; J3490

== ENCOUNTER 2025-03-16 16:21 | Outpatient (CLI) | payer BC ==
[~2025-03-16 16:21] MED LIST changes: +CIPR-173 PO; +FENO145T27 PO; +HYDR-4902 PO; -IOHEXOL 350 MG/ML 100ML IJ ONE; +METR-344 PO; +OLME40TA9 PO; +RIVA20TA PO; +ROSU20TA56 PO; +SEMA4INJ SC; +VORT10TA PO
== END 2025-03-16 17:00 | disposition home or self-care (01) ==
LOC: Rad HDHVI 16:21
PROVIDERS: ATTEND Internal Medicine Cardiovascular Disease
DX: I82.401 Acute embolism and thrombosis of unspecified deep veins of right lower extremity (principal)
CPT/HCPCS: 93970